=== PATIENT | female | born 1940 | race Caucasian/White ===

== ENCOUNTER 2018-07-13 11:26 | Inpatient (IN) | payer MEDICARE ==
[~2018-07-13] VITALS: Ht 152.4 cm; Wt 80.9 kg
[2018-07-13 12:21] LABS: CREATININE, SERUM 0.94 mg/dL (0.57-1.11)
--- NOTE | 2018-07-13 13:26 | Diagnostic Imaging Report ---
ADDENDUM #1 Addendum: 3-D post processing was accomplished utilizing a stand-alone monitor. Signed by: Dr. Dillan Florence DO on 07/25/2018 7:55 AM ORIGINAL REPORT EXAM: CTA ABDOMEN with IV CONTRAST DATE: 07/13/2018 Time stamp on Exam: 12:35 PM INDICATION: Severe abdominal pain COMPARISON: None TECHNIQUE: The abdomen and pelvis were scanned using a multidetector helical scanner. Coronal and sagittal reformations were obtained. CTA protocol was utilized. IV Contrast: 100 cc of Isovue-370 Oral Contrast: None Radiation Dose: Total DLP 252.62 mGy*cm Estimated effective dose: DLP x 0.015 x size factor Low-dose technique was utilized. FINDINGS: LOWER THORAX: Left lower lobe calcified granuloma. LIVER: No masses BILIARY: The gallbladder is absent. No ductal dilatation. SPLEEN: No masses PANCREAS: No masses ADRENALS: No nodules KIDNEYS: Symmetric perfusion. No enhancing masses. No hydronephrosis. There is a 2.8 cm left upper pole renal cyst. GI TRACT: No distention or evidence of obstruction. No bowel wall thickening. VESSELS: There is vascular calcification. No aneurysm or dissection is identified. The celiac trunk, SMA and LATA are all patent without evidence of stenosis. There is a minimal plaque involving the inferior aspect of the SMA origin. Accessory left renal artery. PERITONEUM/RETROPERITONEUM: No free air or fluid LYMPH NODES: No lymphadenopathy REPRODUCTIVE ORGANS: Unremarkable BLADDER: Unremarkable SOFT TISSUES: Unremarkable BONES: No suspicious bone lesions. Disc space narrowing at L5-S1. IMPRESSION: 1. No evidence to substantiate mesenteric ischemia, significant visceral vessel stenosis or bowel wall thickening. 2. No acute abnormality within the abdomen. Signed by: Dr. Dillan Florence DO on 07/13/2018 1:22 PM
--- OUTSIDE RECORDS SUMMARY | 2018-07-13 19:16 | XMS REPORT | Clinical Summary ---
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 Active escitalopram (LEXAPRO) 20 Take 20 mg by 0 MG tablet mouth daily. Active clonAZEPAM (KlonoPIN) 0.5 2 (two) times 0 MG tablet a day as 8 needed. 01/07/2018 Discontinued nitrofurantoin, Take 100 mg 0 macrocrystal-monohydrate, by mouth 2 (MACROBID) 100 MG capsule (two) times a day. 02/03/2018 Discontinued acetaminophen-codeine Take 1 tablet 0 (TYLENOL WITH CODEINE #4) by mouth 300-60 mg per tablet every 6 (six) hours as needed for moderate pain. 02/03/2018 Discontinued levothyroxine (SYNTHROID, Take 75 mcg 0 LEVOXYL) 75 mcg tablet by mouth every morning. 01/07/2018 Discontinued hydrALAZINE (APRESOLINE) Take 1 tablet 60 tablet 0 10 MG tablet (10 mg total) 8 by mouth 2 (two) times a day for 30 days. 02/04/2018 tamsulosin (FLOMAX) 0.4 Take 1 30 capsule 0 mg capsule,extended capsule (0.4 8 release 24hr mg total) by mouth daily for 30 days. 02/03/2018 docusate sodium (COLACE) Take 1 60 capsule 0 100 MG capsule capsule (100 8 mg total) by mouth 2 (two) times a day for 30 days. 02/03/2018 Discontinued oxybutynin XL Take 1 tablet 30 tablet 0 (DITROPAN-XL) 10 MG 24 hr (10 mg total) 8 tablet by mouth daily for 30 days. 01/07/2018 Discontinued levoFLOXacin (LEVAQUIN) Take 1 tablet 7 tablet 0 500 MG tablet (500 mg 8 total) by mouth daily for 7 days. 02/03/2018 Discontinued pantoprazole (PROTONIX) Take 1 tablet 30 tablet 0 40 MG EC tablet (40 mg total) 8 by mouth daily for 30 days. 02/03/2018 Discontinued NIFEdipine XL (PROCARDIA Take 1 tablet 30 tablet 2 XL) 30 MG 24 hr tablet (30 mg total) 8 by mouth daily for 90 days. 01/09/2018 miconazole nitrate 200 mg Insert 1 2 0 suppository suppository suppository 8 into the vagina nightly for 2 days. 01/23/2018 Discontinued ciprofloxacin HCl (CIPRO) Take 1 tablet 14 tablet 0 250 MG tablet (250 mg 8 total) by mouth 2 (two) times a day for 7 days. 02/26/2018 Discontinued ondansetron (ZOFRAN) 4 MG Take 4 mg by 0 tablet mouth every 8 (eight) hours as needed for nausea or vomiting. 02/26/2018 Discontinued hyoscyamine (LEVSIN) Take 0.125 mg 0 0.125 mg SL tablet by mouth every 4 (four) hours as needed for cramping. 02/07/2018 Discontinued sucralfate (CARAFATE) 100 Take 10 mL (1 1200 mL 0 mg/mL suspension g total) by 8 mouth 4 (four) times a day before meals and nightly for 30 days. 03/05/2018 simethicone (MYLICON) 80 Chew 1 tablet 120 tablet 0 MG chewable tablet (80 mg total) 8 every 6 (six) hours as needed for flatulence for up to 30 days. 02/26/2018 Discontinued NIFEdipine XL (PROCARDIA Take 1 tablet 30 tablet 0 XL) 60 MG 24 hr tablet (60 mg total) 8 by mouth daily for 30 days. 03/05/2018 famotidine (PEPCID) 20 MG Take 1 tablet 60 tablet 0 tablet (20 mg total) 8 by mouth 2 (two) times a day for 30 days. 03/06/2018 polyethylene glycol Take 17 g by 30 packet 0 (MIRALAX) 17 gram packet mouth daily 8 for 30 days. 03/06/2018 levothyroxine (SYNTHROID, Take 1 tablet 30 tablet 0 LEVOXYL) 112 mcg tablet (112 mcg 8 total) by mouth every morning for 30 days. 02/26/2018 Discontinued HYDROcodone-acetaminophen Take 1 tablet 30 tablet 0 (NORCO) 10-325 mg per by mouth 8 tablet every 6 (six) hours as needed for moderate pain for up to 7 days. Max Daily Amount: 4 tablets 02/26/2018 Discontinued tamsulosin (FLOMAX) 0.4 Take 0.4 mg 0 mg capsule,extended by mouth release 24hr daily. 02/08/2018 Discontinued amoxicillin (AMOXIL) 500 0 MG capsule 8 02/26/2018 Discontinued bethanechol (URECHOLINE) TK 1 T PO TID 0 10 MG tablet 8 02/08/2018 Discontinued ciprofloxacin (CIPRO) 500 TK 1 T PO 0 MG tablet BID FOR 7 8 DAYS. 02/08/2018 Discontinued citalopram (CeleXA) 20 MG 0 tablet 8 02/26/2018 Discontinued fluconazole (DIFLUCAN) 0 150 MG tablet 8 02/26/2018 Discontinued NIFEdipine CC (ADALAT CC) 60 mg. 2 30 MG 24 hr tablet 8 02/26/2018 Discontinued phenazopyridine TK 1 T PO 0 (PYRIDIUM) 100 MG tablet TID 8 03/28/2018 chlordiazepoxide-clidiniu Take 1 60 capsule 0 m (LIBRAX) 5-2.5 mg per capsule by 8 capsule mouth 2 (two) times a day for 30 days. 03/28/2018 hyoscyamine (LEVBID) Take 1 tablet 60 tablet 12 0.375 mg 12 hr tablet (0.375 mg 8 total) by mouth every 12 (twelve) hours as needed for cramping for up to 30 days. 03/28/2018 tamsulosin (FLOMAX) 0.4 Take 1 30 capsule 0 mg capsule capsule (0.4 8 mg total) by mouth daily for 30 days. 03/29/2018 NIFEdipine XL (PROCARDIA Take 1 tablet 30 tablet 0 XL) 30 MG 24 hr tablet (30 mg total) 8 by mouth daily for 30 days. 03/29/2018 lactulose 20 gram/30 mL Take 30 mL 900 mL 0 solution (20 g total) 8 by mouth daily for 30 days. 03/28/2018 sennosides-docusate Take 1 tablet 60 tablet 0 sodium (SENOKOT-S) 8.6-50 by mouth 2 8 mg per tablet (two) times a day for 30 days. 03/29/2018 multivitamin (THERAGRAN) Take 1 tablet 30 tablet 0 tablet by mouth 8 daily for 30 days. 03/28/2018 bethanechol (URECHOLINE) Take 1 tablet 90 tablet 0 10 MG tablet (10 mg total) 8 by mouth 3 (three) times a day for 30 days. 03/05/2018 levoFLOXacin (LEVAQUIN) Take 1 tablet 7 tablet 0 500 MG tablet (500 mg 8 total) by mouth daily for 7 days. Active Problems Problem Noted Date Urinary retention 02/09/2018 Postprocedural intraabdominal abscess 02/07/2018 Generalized abdominal pain 02/07/2018 Overview: Added automatically from request for surgery [id number] Postoperative pain 01/27/2018 Intractable epigastric abdominal pain 01/12/2018 Epigastric pain 01/12/2018 Overview: Added automatically from request for surgery [id number] Injury of bile duct 01/12/2018 Overview: Added automatically from request for surgery [id number] Abdominal pain 01/03/2018 Intractable abdominal pain 12/31/2017 Encounters Care Team Description Date Type Specialty Carmelo Segal MD Abdominal pain, unspecified abdominal location; Diarrhea of presumed infectious origin 05/31/2018 Hospital Radiology Encounter Carmelo Segal MD Abdominal pain, unspecified abdominal location (Primary Dx); Diarrhea of presumed infectious origin 05/23/2018 Transcribe Access Orders Ernestina Szymanski MD Screening breast examination 05/12/2018 Hospital Radiology Encounter Ernestina Szymanski MD Screening breast examination (Primary Dx) 04/13/2018 Transcribe Access Orders Katie Boateng MD ERCP WITH FLUORO , balloon sweep and stent removal, stone removal 02/21/2018 Surgery Gastroenterology Ranjan Mckeon MD 02/21/2018 Anesthesia Gastroenterology Event Camilla Wang MA 02/16/2018 Telephone Gastroenterology Jean Sanchez MD 02/11/2018 Anesthesia Gastroenterology Event Eldon Pillai MD EGD WITH BIOPSY 02/11/2018 Surgery Gastroenterology Kavya Massey MD Abdelsayed, Dallal William, MD Intractable abdominal pain (Primary Dx); Postprocedural intraabdominal abscess; Generalized abdominal pain; Injury of bile duct, sequela 02/07/2018 Hospital General Surgery - Encounter 02/26/2018 Katie Boateng MD Generalized abdominal pain (Primary Dx) 02/07/2018 Office Visit Gastroenterology Nacho Mcdonnell MD ESOPHAGOGASTRODUODENOSCOPY (EGD) w/ biopsies 01/30/2018 Surgery Gastroenterology Nini Montaño CRNA 01/30/2018 Anesthesia Gastroenterology Event Finn Sol DO Bavare, Arusha Amod, MD Cherian, Cecil, MD Postoperative pain (Primary Dx); Biloma following surgery, initial encounter; Essential hypertension; Hydroureteronephrosis; Intractable abdominal pain 01/26/2018 Hospital General Surgery - Encounter 02/03/2018 Noble Moise MD 01/17/2018 Anesthesia Gastroenterology Event Katie Boateng MD ERCP WITH FLUORO with sphincterotomy, and stent placement 01/17/2018 Surgery Gastroenterology Ty Ryan MD Cysto Retrograde-BILATERAL 01/16/2018 Surgery General Surgery Jarrod Mejia MD 01/16/2018 Anesthesia General Surgery Event Noble Moise MD 01/13/2018 Anesthesia General Surgery Event Ceci Rodney MD Cholecystectomy, Laparoscopic 01/13/2018 Surgery General Surgery Silvano Ryan MD Injury of bile duct, initial encounter (Primary Dx); Intractable epigastric abdominal pain; Epigastric pain; Calculus of gallbladder without cholecystitis without obstruction; Injury of bile duct, subsequent encounter; Intractable abdominal pain; Right upper quadrant abdominal pain 01/12/2018 [facility] Internal Medicine - Encounter 01/23/2018 Ceci Rodney MD Calculus of gallbladder without cholecystitis without obstruction (Primary Dx); Calculus of gallbladder with cholecystitis with biliary obstruction, unspecified cholecystitis acuity 01/12/2018 Office Visit General Surgery Earline Angelo RN 01/07/2018 Patient Quality Outreach Ty Ryan MD Cystoscopy 01/02/2018 Surgery General Surgery Eduar Nguyen MD 01/02/2018 Anesthesia General Surgery Event Kadeem Kincaid MD Abdelsayed, Dallal William, MD Intractable abdominal pain (Primary Dx); RUQ pain 12/31/2017 [facility] Internal Medicine - Encounter 01/07/2018 Silvano Ryan MD Adnexal tenderness, right (Primary Dx); Stomach ache 12/27/2017 Transcribe Access Orders after 07/12/2017 Immunizations Name Dates Previously Given Next Due Pneumococcal Conjugate 01/03/2018 [facility] Social History Date Tobacco Use Types Packs/Day Years Used Never Smoker Smokeless Tobacco: Never Used Alcohol Use Drinks/Week oz/Week Comments No Sex Assigned at Date Recorded Not on file Industry Job Start Date Occupation Not on file Not on file Not on file Travel End Travel History Travel Start No recent travel history available. Last Filed Vital Signs Time Taken Vital Sign Reading 02/26/2018 2:59 PM CDT Blood Pressure 124/60 02/26/2018 2:59 PM CDT Pulse 69 02/26/2018 2:59 PM CDT Temperature 36.7 C (98.1 F) 02/26/2018 2:59 PM CDT Respiratory Rate 18 02/26/2018 2:59 PM CDT Oxygen Saturation 96% - Inhaled Oxygen - Concentration 02/07/2018 3:37 PM CDT Weight 77.1 kg (170 lb) 02/07/2018 3:37 PM CDT Height 157.5 cm (5' 2") 02/07/2018 3:37 PM CDT Body Mass Index 31.09 Plan of Treatment Health Maintenance Due Date Last Done Comments SHINGLES VACCINES (1 of 1991 2) PNEUMOCOCCAL 2006 POLYSACCHARIDE VACCINE AGE 65 AND OVER INFLUENZA VACCINE 02/28/2018 PNEUMOCOCCAL-13 Completed 01/03/2018 Implants Device Identifier Shelf Expiration Date Model / Serial / Lot Implanted Type Area Manufactur er 11/13/2019 [id number] / / [id number] Stent Bili Advanix Duodbnd Noé 10fr Surgical N/A: N/A BSC 5cm Prldd Naviflex Ds - [id number] Stents ENDOSCOPY Implanted: 01/17/2018 (Quantity not on file) Procedures Comments Procedure Name Priority Date/Time Associated Diagnosis CT ABDOMEN PELVIS W Routine 05/31/2018 Abdominal pain, CONTRAST 6:15 PM CDT unspecified abdominal location Diarrhea of presumed infectious origin ESTIMATED GFR Routine 05/31/2018 6:03 PM CDT POC CREATININE Routine 05/31/2018 6:03 PM CDT MAMMO BREAST SCREEN Routine 05/12/2018 Screening breast TOMOSYNTHESIS BILATERAL 8:50 AM CDT examination MANUAL DIFFERENTIAL Routine 02/26/2018 6:20 AM CDT ZZESTIMATED GFR Routine 02/26/2018 6:20 AM CDT CBC WITH PLATELET AND Routine 02/26/2018 DIFFERENTIAL 6:20 AM CDT BASIC METABOLIC PANEL Routine 02/26/2018 6:20 AM CDT ZZESTIMATED GFR Routine 02/24/2018 7:14 AM CDT HC COMPLETE BLD COUNT Routine 02/24/2018 W/AUTO DIFF 7:14 AM CDT BASIC METABOLIC PANEL Routine 02/24/2018 7:14 AM CDT ZZESTIMATED GFR Routine 02/23/2018 5:48 AM CDT MAGNESIUM LEVEL Routine 02/23/2018 5:48 AM CDT BASIC METABOLIC PANEL Routine 02/23/2018 5:48 AM CDT MANUAL DIFFERENTIAL Routine 02/22/2018 6:00 AM CDT THYROID STIMULATING Routine 02/22/2018 HORMONE 6:00 AM CDT ZZESTIMATED GFR Routine 02/22/2018 6:00 AM CDT BASIC METABOLIC PANEL Routine 02/22/2018 6:00 AM CDT CBC WITH PLATELET AND Routine 02/22/2018 DIFFERENTIAL 6:00 AM CDT POC GLUCOSE Routine 02/21/2018 6:03 PM CDT ERCP WITH FLUORO 02/21/2018 Injury of bile duct, 10:35 AM CDT sequela FL ERCP Routine 02/21/2018 10:17 AM CDT IR ENDOVASCULAR CONSULT Routine 02/20/2018 2:51 PM CDT MANUAL DIFFERENTIAL Routine 02/20/2018 6:22 AM CDT ZZESTIMATED GFR Routine 02/20/2018 6:22 AM CDT BASIC METABOLIC PANEL Routine 02/20/2018 6:22 AM CDT CBC WITH PLATELET AND Routine 02/20/2018 DIFFERENTIAL 6:[address] ABDOMEN WO CONTRAST Routine 02/19/2018 9:06 PM CDT POC GLUCOSE Routine 02/19/2018 6:13 AM CDT POC GLUCOSE Routine 02/18/2018 8:30 PM CDT POC GLUCOSE Routine 02/18/2018 5:24 PM CDT POC GLUCOSE Routine 02/18/2018 12:19 PM CDT URINALYSIS, AUTOMATED Routine 02/17/2018 WITH MICROSCOPY 5:16 AM CDT GRAM STAIN Routine 02/17/2018 5:16 AM CDT URINE CULTURE Routine 02/17/2018 5:16 AM CDT XR CHEST 2 VW Routine 02/16/2018 7:[address] GUIDED ABSCESS DRAIN Routine 02/16/2018 6:10 PM CDT GRAM STAIN Routine 02/16/2018 5:35 PM CDT ANAEROBIC CULTURE Routine 02/16/2018 5:35 PM CDT AEROBIC CULTURE Routine 02/16/2018 5:35 PM CDT PROTHROMBIN TIME WITH INR Routine 02/16/2018 2:34 PM CDT PARTIAL THROMBOPLASTIN Routine 02/16/2018 TIME (PTT) 2:34 PM CDT POC GLUCOSE Routine 02/16/2018 6:24 AM CDT HC COMPLETE BLD COUNT Routine 02/15/2018 W/AUTO DIFF 6:47 AM CDT ZZESTIMATED GFR STAT 02/13/2018 2:09 PM CDT BASIC METABOLIC PANEL STAT 02/13/2018 2:09 PM CDT HC COMPLETE BLD COUNT STAT 02/13/2018 W/AUTO DIFF 2:[address] ANGIOGRAM ABDOMEN STAT 02/11/2018 PELVIS W AND OR WO 3:39 PM CDT CONTRAST SURGICAL PATHOLOGY Routine 02/11/2018 REQUEST 9:31 AM CDT COLONOSCOPY 02/11/2018 Generalized abdominal 8:30 AM CDT pain EGD WITH BIOPSY 02/11/2018 Generalized abdominal 8:30 AM CDT pain ZZESTIMATED GFR Routine 02/11/2018 6:01 AM CDT HC COMPLETE BLD COUNT Routine 02/11/2018 W/AUTO DIFF 6:01 AM CDT BASIC METABOLIC PANEL Routine 02/11/2018 6:01 AM CDT ZZESTIMATED GFR Routine 02/09/2018 4:45 AM CDT HC COMPLETE BLD COUNT Routine 02/09/2018 W/AUTO DIFF 4:45 AM CDT BASIC METABOLIC PANEL Routine 02/09/2018 4:[address] ABDOMEN PELVIS W STAT 02/07/2018 CONTRAST 9:18 PM CDT URINALYSIS SCREEN AND STAT 02/07/2018 MICROSCOPY, WITH REFLEX 7:40 PM CDT TO CULTURE URINE CULTURE STAT 02/07/2018 7:40 PM CDT TROPONIN STAT 02/07/2018 4:33 PM CDT B NATRIURETIC PEPTIDE STAT 02/07/2018 4:33 PM CDT ZZESTIMATED GFR STAT 02/07/2018 4:33 PM CDT LIPASE LEVEL STAT 02/07/2018 4:33 PM CDT COMPREHENSIVE METABOLIC STAT 02/07/2018 PANEL 4:33 PM CDT HC COMPLETE BLD COUNT STAT 02/07/2018 W/AUTO DIFF 4:33 PM CDT XR ABDOMEN 1 VW STAT 02/07/2018 4:08 PM CDT HC COMPLETE BLD COUNT Routine 02/03/2018 W/AUTO DIFF 6:05 AM CDT ZZESTIMATED GFR Routine 02/03/2018 4:00 AM CDT COMPREHENSIVE METABOLIC Routine 02/03/2018 PANEL 4:00 AM CDT ZZESTIMATED GFR Routine 02/02/2018 5:40 AM CDT COMPREHENSIVE METABOLIC Routine 02/02/2018 PANEL 5:40 AM CDT HC COMPLETE BLD COUNT Routine 02/02/2018 W/AUTO DIFF 5:40 AM CDT OCCULT BLOOD, STOOL Routine 02/01/2018 7:30 PM CDT FL ESOPHAGRAM COMPLETE Routine 02/01/2018 10:40 AM CDT ZZESTIMATED GFR Routine 02/01/2018 4:00 AM CDT COMPREHENSIVE METABOLIC Routine 02/01/2018 PANEL 4:00 AM CDT HC COMPLETE BLD COUNT Routine 02/01/2018 W/AUTO DIFF 4:00 AM CDT HEMOGLOBIN & HEMATOCRIT STAT 01/31/2018 7:48 AM CDT POTASSIUM LEVEL STAT 01/31/2018 7:01 AM CDT US RENAL Routine 01/30/2018 2:00 PM CDT SURGICAL PATHOLOGY Routine 01/30/2018 REQUEST 9:40 AM CDT YOVANNY TEST Routine 01/30/2018 7:45 AM CDT ESOPHAGOGASTRODUODENOSCOP 01/30/2018 Intractable abdominal Y (EGD) 7:30 AM CDT pain ZZESTIMATED GFR Routine 01/30/2018 4:30 AM CDT TYPE AND SCREEN Routine 01/30/2018 4:30 AM CDT IMMUNOGLOBULIN E Routine 01/30/2018 4:30 AM CDT T4, FREE Routine 01/30/2018 4:30 AM CDT THYROID STIMULATING Routine 01/30/2018 HORMONE 4:30 AM CDT PHOSPHORUS LEVEL Routine 01/30/2018 4:30 AM CDT MAGNESIUM LEVEL Routine 01/30/2018 4:30 AM CDT BASIC METABOLIC PANEL Routine 01/30/2018 4:30 AM CDT CBC WITH PLATELET AND Routine 01/30/2018 DIFFERENTIAL 4:30 AM CDT HC COMPLETE BLD COUNT Routine 01/29/2018 W/AUTO DIFF 5:30 AM CDT ZZESTIMATED GFR Routine 01/29/2018 4:00 AM CDT PHOSPHORUS LEVEL Routine 01/29/2018 4:00 AM CDT MAGNESIUM LEVEL Routine 01/29/2018 4:00 AM CDT BASIC METABOLIC PANEL Routine 01/29/2018 4:00 AM CDT ZZESTIMATED GFR Routine 01/28/2018 4:00 AM CDT COMPREHENSIVE METABOLIC Routine 01/28/2018 PANEL 4:00 AM CDT PHOSPHORUS LEVEL Routine 01/28/2018 4:00 AM CDT MAGNESIUM LEVEL Routine 01/28/2018 4:00 AM CDT CBC WITH PLATELET AND Routine 01/28/2018 DIFFERENTIAL 4:00 AM CDT NM HEPATOBILIARY STAT 01/27/2018 12:13 PM CDT LACTIC ACID LEVEL, SEPSIS Timed 01/27/2018 - NOW AND REPEAT 2X EVERY 7:03 AM CDT [address] ABDOMEN PELVIS W STAT 01/27/2018 CONTRAST 3:45 AM CDT ZZESTIMATED GFR STAT 01/27/2018 2:27 AM CDT PARTIAL THROMBOPLASTIN STAT 01/27/2018 TIME (PTT) 2:27 AM CDT PROTHROMBIN TIME WITH INR STAT 01/27/2018 2:27 AM CDT HC COMPLETE BLD COUNT STAT 01/27/2018 W/AUTO DIFF 2:27 AM CDT LIPASE LEVEL STAT 01/27/2018 2:27 AM CDT LACTIC ACID LEVEL, SEPSIS STAT 01/27/2018 - NOW AND REPEAT 2X EVERY 2:27 AM CDT 3 HOURS COMPREHENSIVE METABOLIC STAT 01/27/2018 PANEL 2:27 AM CDT URINALYSIS SCREEN AND STAT 01/27/2018 MICROSCOPY, WITH REFLEX 12:05 AM CDT TO CULTURE URINE CULTURE STAT 01/27/2018 12:[address] ABDOMEN PELVIS W Routine 01/22/2018 CONTRAST 5:12 PM CDT US GALLBLADDER STAT 01/22/2018 11:04 AM CDT ZZESTIMATED GFR STAT 01/21/2018 1:29 PM CDT LIPASE LEVEL STAT 01/21/2018 1:29 PM CDT COMPREHENSIVE METABOLIC STAT 01/21/2018 PANEL 1:29 PM CDT ZZESTIMATED GFR Routine 01/20/2018 7:54 AM CDT LIPASE LEVEL Routine 01/20/2018 7:54 AM CDT AMYLASE LEVEL Routine 01/20/2018 7:54 AM CDT HEPATIC FUNCTION PANEL Routine 01/20/2018 7:54 AM CDT BASIC METABOLIC PANEL Routine 01/20/2018 7:54 AM CDT CBC WITH PLATELET AND Routine 01/20/2018 DIFFERENTIAL 7:54 AM CDT ZZESTIMATED GFR Routine 01/19/2018 6:24 AM CDT HEPATIC FUNCTION PANEL Routine 01/19/2018 6:24 AM CDT BASIC METABOLIC PANEL Routine 01/19/2018 6:24 AM CDT HC COMPLETE BLD COUNT Routine 01/19/2018 W/AUTO DIFF 6:24 AM CDT URINALYSIS, AUTOMATED STAT 01/18/2018 WITH MICROSCOPY 7:34 AM CDT HEPATIC FUNCTION PANEL Routine 01/18/2018 7:12 AM CDT ZZESTIMATED GFR Routine 01/18/2018 7:12 AM CDT BASIC METABOLIC PANEL Routine 01/18/2018 7:12 AM CDT HC COMPLETE BLD COUNT Routine 01/18/2018 W/AUTO DIFF 7:12 AM CDT FL ERCP Routine 01/17/2018 12:21 PM CDT ERCP WITH FLUORO 01/17/2018 Injury of bile duct, 11:30 AM CDT initial encounter ZZESTIMATED GFR Routine 01/17/2018 7:18 AM CDT PROTHROMBIN TIME WITH INR Routine 01/17/2018 7:18 AM CDT PHOSPHORUS LEVEL Routine 01/17/2018 7:18 AM CDT PARTIAL THROMBOPLASTIN Routine 01/17/2018 TIME (PTT) 7:18 AM CDT MAGNESIUM LEVEL Routine 01/17/2018 7:18 AM CDT LIPASE LEVEL Routine 01/17/2018 7:18 AM CDT IONIZED CALCIUM Routine 01/17/2018 7:18 AM CDT HEPATIC FUNCTION PANEL Routine 01/17/2018 7:18 AM CDT HC COMPLETE BLD COUNT Routine 01/17/2018 W/AUTO DIFF 7:18 AM CDT BASIC METABOLIC PANEL Routine 01/17/2018 7:18 AM CDT AMYLASE LEVEL Routine 01/17/2018 7:18 AM CDT TYPE AND SCREEN STAT 01/16/2018 7:11 PM CDT NM HEPATOBILIARY STAT 01/16/2018 5:13 PM CDT XR ABDOMEN 1 VW PORTABLE STAT 01/16/2018 3:00 PM CDT FL PYELOGRAM RETROGRADE Routine 01/16/2018 12:10 PM CDT ZZESTIMATED GFR Routine 01/16/2018 7:26 AM CDT HEPATIC FUNCTION PANEL Routine 01/16/2018 7:26 AM CDT BASIC METABOLIC PANEL Routine 01/16/2018 7:26 AM CDT HC COMPLETE BLD COUNT Routine 01/16/2018 W/AUTO DIFF 7:26 AM CDT US RENAL Routine 01/15/2018 11:10 AM CDT ZZESTIMATED GFR Routine 01/15/2018 5:58 AM CDT HEPATIC FUNCTION PANEL Routine 01/15/2018 5:58 AM CDT BASIC METABOLIC PANEL Routine 01/15/2018 5:58 AM CDT HC COMPLETE BLD COUNT Routine 01/15/2018 W/AUTO DIFF 5:58 AM CDT ZZESTIMATED GFR Routine 01/14/2018 10:30 AM CDT LIPASE LEVEL Routine 01/14/2018 10:30 AM CDT HEPATIC FUNCTION PANEL Routine 01/14/2018 10:30 AM CDT BASIC METABOLIC PANEL Routine 01/14/2018 10:30 AM CDT HC COMPLETE BLD COUNT Routine 01/14/2018 W/AUTO DIFF 10:30 AM CDT FL CHOLANGIOGRAM Routine 01/13/2018 INTRAOPERATIVE 1:31 PM CDT SURGICAL PATHOLOGY Routine 01/13/2018 REQUEST 12:48 PM CDT ZZESTIMATED GFR Routine 01/13/2018 7:13 AM CDT HEPATIC FUNCTION PANEL Routine 01/13/2018 7:13 AM CDT BASIC METABOLIC PANEL Routine 01/13/2018 7:13 AM CDT PARTIAL THROMBOPLASTIN Routine 01/13/2018 TIME (PTT) 7:13 AM CDT PROTHROMBIN TIME WITH INR Routine 01/13/2018 7:13 AM CDT HC COMPLETE BLD COUNT Routine 01/13/2018 W/AUTO DIFF 7:13 AM CDT NM HEPATOBILIARY STAT 01/13/2018 3:35 AM CDT URINALYSIS SCREEN AND Routine 01/12/2018 MICROSCOPY, WITH REFLEX 10:30 PM CDT TO CULTURE URINE CULTURE Routine 01/12/2018 10:30 PM CDT GRAM STAIN Routine 01/12/2018 10:30 PM CDT ZZESTIMATED GFR STAT 01/12/2018 4:38 PM CDT TYPE AND SCREEN STAT 01/12/2018 4:38 PM CDT LIPASE LEVEL STAT 01/12/2018 4:38 PM CDT AMYLASE LEVEL STAT 01/12/2018 4:38 PM CDT HEPATIC FUNCTION PANEL STAT 01/12/2018 4:38 PM CDT MAGNESIUM LEVEL STAT 01/12/2018 4:38 PM CDT IONIZED CALCIUM STAT 01/12/2018 4:38 PM CDT BASIC METABOLIC PANEL STAT 01/12/2018 4:38 PM CDT PARTIAL THROMBOPLASTIN STAT 01/12/2018 TIME (PTT) 4:38 PM CDT PROTHROMBIN TIME WITH INR STAT 01/12/2018 4:38 PM CDT HC COMPLETE BLD COUNT STAT 01/12/2018 W/AUTO DIFF 4:38 PM CDT PHOSPHORUS LEVEL STAT 01/12/2018 4:38 PM CDT XR ABDOMEN 1 VW PORTABLE STAT 01/12/2018 4:20 PM CDT US PELVIC TRANSVAGINAL STAT 01/06/2018 2:58 PM CDT US PELVIC TRANSABDOMINAL STAT 01/06/2018 2:58 PM CDT URINALYSIS SCREEN AND Routine 01/06/2018 MICROSCOPY, WITH REFLEX 1:43 AM CDT TO CULTURE URINE CULTURE Routine 01/06/2018 1:43 AM CDT ZZESTIMATED GFR Routine 01/05/2018 7:17 AM CDT HEPATIC FUNCTION PANEL Routine 01/05/2018 7:17 AM CDT BASIC METABOLIC PANEL Routine 01/05/2018 7:17 AM CDT HC COMPLETE BLD COUNT Routine 01/05/2018 W/AUTO DIFF 7:[address] HEAD WO CONTRAST STAT 01/04/2018 11:08 PM CDT XR ABDOMEN 1 VW PORTABLE Routine 01/04/2018 12:11 PM CDT POC GLUCOSE Routine 01/04/2018 6:26 AM CDT HC COMPLETE BLD COUNT Routine 01/03/2018 W/AUTO DIFF 4:31 AM CDT ZZESTIMATED GFR Routine 01/03/2018 4:31 AM CDT BASIC METABOLIC PANEL Routine 01/03/2018 4:31 AM CDT CANCER ANTIGEN 19-9 Routine 01/02/2018 11:45 AM CDT MRI CHOLANGIOGRAM W WO STAT 12/31/2017 CONTRAST 7:55 PM CDT US GALLBLADDER STAT 12/31/2017 6:[address] ABDOMEN PELVIS W STAT 12/31/2017 CONTRAST 5:12 PM CDT URINALYSIS SCREEN AND STAT 12/31/2017 MICROSCOPY, WITH REFLEX 3:30 PM CDT TO CULTURE URINE CULTURE STAT 12/31/2017 3:30 PM CDT ZZESTIMATED GFR STAT 12/31/2017 2:27 PM CDT LIPASE LEVEL STAT 12/31/2017 2:27 PM CDT COMPREHENSIVE METABOLIC STAT 12/31/2017 PANEL 2:27 PM CDT HC COMPLETE BLD COUNT STAT 12/31/2017 W/AUTO DIFF 2:27 PM CDT ECG ED PRELIMINARY Routine 12/31/2017 INTERPRETATION 2:18 PM CDT ECG 12-LEAD STAT 12/31/2017 1:52 PM CDT after 07/12/2017 Results * CT Abdomen Pelvis W Contrast (05/31/2018 6:15 PM CDT) Only the most recent of 5 results within the time period is included. Narrative Performed At EXAMINATION:CT ABDOMEN PELVIS W CONTRAST [facility] CLINICAL HISTORY:R10.9 Unspecified abdominal pain, R19.7 Diarrheaunspecified, ABD PAIN TECHNIQUE: Multiple axial images of the abdomen and pelvis were obtained following intravenous administration of iodinated contrast. Sagittal and coronal computerized reformatted images were also obtained. Approximately 75 cc of Omnipaque 300 was used. Oral contrast was also used. All CT scan performed using radiation dose reduction techniques. Technical factors are evaluated and adjusted to ensure appropriate moderation of exposure. Automated dose management technology is applied to adjust the radiation dose to minimize expose whileachieving a diagnostic quality image. COMPARISON:02/19/2018. FINDINGS: Lung bases: The lung bases are unremarkable. Liver: There is no enhancing mass. The liver is normal in attenuation, contour and size. Gallbladder: Surgically absent.. There has been interval removal of the common bile duct stent and biliary drain. Pancreas: The pancreas is normal in caliber and attenuation. No inflammatory process. The pancreatic duct is within normal limits. Spleen: The spleen is normal in appearance.. Kidneys and ureters: The kidneys function symmetrically. An approximately 2.4 cm cortical cyst is seen within the upper pole of the left kidney. There is no enhancing renal lesion. No hydronephrosis or renal stone. The ureters are normal in course and caliber. Adrenal glands: Unremarkable. GI tract: The small bowel is normal in course and caliber. The colon is unremarkable. No bowel wall thickening is identified. There is no acute inflammatory process. The appendix is not seen. No right lower quadrant inflammation is seen. The stomach is unremarkable. Fluid: None. Pelvis: Bladder: The urinary bladder is unremarkable. Genitalia: Limited evaluation of uterus is unremarkable. Fluid: None. Bones: Unremarkable. Retroperitoneum/intraperitoneum: Moderate to marked improvement of marvin hepatis enlarged lymph nodes is seen, suggestive of improvement of reactive adenitis. No retroperitoneal or mesenteric pathologic lymphadenopathy is seen. Vasculature: Scattered atherosclerotic calcifications of the abdominal aorta and iliac arteries are noted. No evidence of aortic aneurysm or dissection.The mesenteric vessels and visceral vessel are patent. Abdominal wall: Unremarkable. IMPRESSION: No CT evidence acute findings. No CT evidence of colitis or bowel obstruction. Bosniak category 1 left renal cyst. [id number] Procedure Note Hm Interface, Radiology Results Incoming - 05/31/2018 6:29 PM CDT EXAMINATION: CT ABDOMEN PELVIS W CONTRAST CLINICAL HISTORY: R10.9 Unspecified abdominal pain, R19.7 Diarrhea unspecified, ABD PAIN TECHNIQUE: Multiple axial images of the abdomen and pelvis were obtained following intravenous administration of iodinated contrast. Sagittal and coronal computerized reformatted images were also obtained. Approximately 75 cc of Omnipaque 300 was used. Oral contrast was also used. All CT scan performed using radiation dose reduction techniques. Technical factors are evaluated and adjusted to ensure appropriate moderation of exposure. Automated dose management technology is applied to adjust the radiation dose to minimize expose while achieving a diagnostic quality image. COMPARISON: 02/19/2018. FINDINGS: Lung bases: The lung bases are unremarkable. Liver: There is no enhancing mass. The liver is normal in attenuation, contour and size. Gallbladder: Surgically absent.. There has been interval removal of the common bile duct stent and biliary drain. Pancreas: The pancreas is normal in caliber and attenuation. No inflammatory process. The pancreatic duct is within normal limits. Spleen: The spleen is normal in appearance.. Kidneys and ureters: The kidneys function symmetrically. An approximately 2.4 cm cortical cyst is seen within the upper pole of the left kidney. There is no enhancing renal lesion. No hydronephrosis or renal stone. The ureters are normal in course and caliber. Adrenal glands: Unremarkable. GI tract: The small bowel is normal in course and caliber. The colon is unremarkable. No bowel wall thickening is identified. There is no acute inflammatory process. The appendix is not seen. No right lower quadrant inflammation is seen. The stomach is unremarkable. Fluid: None. Pelvis: Bladder: The urinary bladder is unremarkable. Genitalia: Limited evaluation of uterus is unremarkable. Fluid: None. Bones: Unremarkable. Retroperitoneum/intraperitoneum: Moderate to marked improvement of marvin hepatis enlarged lymph nodes is seen, suggestive of improvement of reactive adenitis. No retroperitoneal or mesenteric pathologic lymphadenopathy is seen. Vasculature: Scattered atherosclerotic calcifications of the abdominal aorta and iliac arteries are noted. No evidence of aortic aneurysm or dissection. The mesenteric vessels and visceral vessel are patent. Abdominal wall: Unremarkable. IMPRESSION: No CT evidence acute findings. No CT evidence of colitis or bowel obstruction. Bosniak category 1 left renal cyst. [id number]-[id number] Performing Organization Address City/State/Zipcode Phone Number [facility] [address] [place] [address] * Estimated GFR (05/31/2018 6:03 PM CDT) Estimated GFR 54 (A) mL/min/1.73 m2 [facility] DEPARTMENT OF Comment: PATHOLOGY AND CatergoryUnitsInte GENOMIC MEDICINE rpretation G1 >=90 Normal or high G2 60-89Mildly decreased [id number] Mildly to moderately decreased G2z47-65 Moderately to severely decreased G4 15-29Severely decreased G5 <15Kidney failure The eGFR was calculated using the Chronic Kidney Disease Epidemiology Collaboration (CKD-EPI) equation. Interpretation is based on recommendations of the National Kidney Foundation-Kidney Disease Outcomes Quality Initiative (NKF-KDOQI) published in 2014. Specimen Blood Performing Organization Address City/State/Zipcode Phone Number [facility] DEPARTMENT OF [address] [place] [address] PATHOLOGY AND GENOMIC MEDICINE * POC creatinine (05/31/2018 6:03 PM CDT) POC creatinine 1.0 (H) 0.5 - 0.9 mg/dl [facility] DEPARTMENT OF Comment: PATHOLOGY AND Meter ID: [id number] GENOMIC MEDICINE Trapeze Performer: Nataliegillian Madrid Specimen Blood Performing Organization Address City/[facility] Phone Number [address] [place] [address] PATHOLOGY AND GENOMIC MEDICINE * Mammo Breast Screen Tomosynthesis Bilateral (05/12/2018 8:50 AM CDT) Narrative Performed At PROCEDURE:MAMMO BREAST SCREEN TOMOSYNTHESIS [id number]/13/2018 8:12 AM [employer] This patient's mammogram was interpreted with the assistance of computer-aided detection (CAD). Digital breast tomosynthesis (3D) imaging was performed. CLINICAL HISTORY:77-year-old female referred for screening mammogram.She reports no new or current breast complaints. FAMILY HISTORY:No reported family history of breast carcinoma. COMPARISON:None available. BREAST DENSITY:There are scattered areas of fibroglandular density. DIGITAL SCREENING MAMMOGRAPHY FINDINGS: There are no dominant masses, suspicious microcalcifications or unexplained architectural distortion to suggest malignancy. IMPRESSION: BI-RADS Category 1-Negative. RECOMMENDATION: Comparison with physical examination and annual mammography. This facility is accredited by The [employer] for Mammography. A negative x-ray report should not delay biopsy if a dominant or clinically suspicious mass is present. Not all cancers are identified by x-ray. [id number] The results of this exam have been sent to the patient. Performing Organization Address City/State/Zipcode Phone Number [employer] [address] [place] [address] * Estimated GFR (02/26/2018 6:20 AM CDT) Only the most recent of 29 results within the time period is included. GFR Non Af Amer 54 (A) mL/min/1.73 m2 [facility] DEPARTMENT OF PATHOLOGY AND GENOMIC MEDICINE GFR Af Amer 65 mL/min/1.73 m2 [facility] DEPARTMENT OF Comment: PATHOLOGY AND Chronic kidney disease: <60 GENOMIC MEDICINE mL/min/1.73m2 Kidney failure: <15 mL/min/1.73m2 The estimated GFR is calculated from the IDMS-traceable Modification of Diet in Renal Disease Equation. The accuracy of the calculation is poor when the creatinine is normal. Calculated values >90 mL/min/1.73m2 are not reported. This equation has not been validated in children (<18 years), women, the elderly (>70 years), or ethnic groups other than Caucasians and Americans. Specimen Plasma specimen Performing Organization Address City/[facility]/Zipcode Phone Number [address] [place] [address] PATHOLOGY AND [employer] [facility] * Manual differential (02/26/2018 6:20 AM CDT) Only the most recent of 3 results within the time period is included. Manual differential PERFORMED [facility] DEPARTMENT OF PATHOLOGY AND GENOMIC MEDICINE Neutrophils 45.0 36.0 - 66.0 % [facility] DEPARTMENT PATHOLOGY AND GENOMIC MEDICINE Lymphocytes 38.0 24.0 - 44.0 % [facility] DEPARTMENT PATHOLOGY AND GENOMIC MEDICINE Monocytes 9.0 (H) 0.0 - 6.0 % [facility] DEPARTMENT OF PATHOLOGY AND GENOMIC MEDICINE Eosinophils 2.0 0.0 - 6.0 % [facility] DEPARTMENT PATHOLOGY AND GENOMIC MEDICINE Basophils 0.0 0.0 - 1.2 % [facility] DEPARTMENT OF PATHOLOGY AND GENOMIC MEDICINE Metamyelocytes 0 0 - 1 % [facility] DEPARTMENT OF PATHOLOGY AND GENOMIC MEDICINE Promyelocytes 0 0 - 1 % [facility] DEPARTMENT PATHOLOGY AND GENOMIC MEDICINE Reactive lymphocytes 6.0 [facility] DEPARTMENT OF PATHOLOGY AND GENOMIC MEDICINE Platelet slide review Quintin adequate [facility] DEPARTMENT OF PATHOLOGY AND GENOMIC MEDICINE Anisocytosis Slight [facility] DEPARTMENT OF PATHOLOGY AND GENOMIC MEDICINE Polychromasia Slight [facility] PATHOLOGY AND GENOMIC MEDICINE Performing Organization Address City/[facility]/Zipcode Phone Number [address] [place] [id number] PATHOLOGY AND [employer] [facility] * CBC with platelet and differential (02/26/2018 6:20 AM CDT) Only the most recent of 28 results within the time period is included. WBC 3.1 (L) 4.2 - 11.0 k/uL [facility] DEPARTMENT OF PATHOLOGY AND GENOMIC MEDICINE RBC 3.40 (L) 4.04 - 5.86 m/uL [facility] DEPARTMENT OF PATHOLOGY AND GENOMIC MEDICINE HGB 9.3 (L) 11.5 - 15.3 g/dL [facility] DEPARTMENT OF PATHOLOGY AND GENOMIC MEDICINE HCT 29.8 (L) 34.0 - 45.0 % [facility] DEPARTMENT OF PATHOLOGY AND GENOMIC MEDICINE MCV 87.6 80.0 - 98.0 fL [facility] DEPARTMENT OF PATHOLOGY AND GENOMIC MEDICINE MCH 27.4 27.0 - 34.0 pg [facility] DEPARTMENT OF PATHOLOGY AND GENOMIC MEDICINE MCHC 31.2 (L) 31.5 - 36.5 g/dL [facility] DEPARTMENT OF PATHOLOGY AND GENOMIC MEDICINE RDW - SD 42.5 37.0 - 51.0 fL [facility] DEPARTMENT OF PATHOLOGY AND GENOMIC MEDICINE MPV 10.7 (H) 7.4 - 10.4 fL [facility] DEPARTMENT OF PATHOLOGY AND GENOMIC MEDICINE Platelet count 180 150 - 400 k/uL [facility] DEPARTMENT OF PATHOLOGY AND GENOMIC MEDICINE Nucleated RBC 0.00 /100 WBC [facility] DEPARTMENT OF PATHOLOGY AND GENOMIC MEDICINE Neutrophils 45.0 36.0 - 66.0 % [facility] DEPARTMENT OF PATHOLOGY AND GENOMIC MEDICINE Lymphocytes 38.0 24.0 - 44.0 % [facility] DEPARTMENT OF PATHOLOGY AND GENOMIC MEDICINE Monocytes 9.0 (H) 0.0 - 6.0 % [facility] DEPARTMENT OF PATHOLOGY AND GENOMIC MEDICINE Eosinophils 2.0 0.0 - 6.0 % [facility] DEPARTMENT OF PATHOLOGY AND GENOMIC MEDICINE Basophils 0.0 0.0 - 1.2 % [facility] DEPARTMENT OF PATHOLOGY AND GENOMIC MEDICINE Specimen Blood Performing Organization Address City/State/Zipcode Phone Number [facility] [address] [place] [address] PATHOLOGY AND GENOMIC MEDICINE * Basic metabolic panel (02/26/2018 6:20 AM CDT) Only the most recent of 21 results within the time period is included. Sodium 139 135 - 150 mEq/L [facility] DEPARTMENT OF PATHOLOGY AND GENOMIC MEDICINE Potassium 3.7 3.5 - 5.0 mEq/L [facility] DEPARTMENT OF PATHOLOGY AND GENOMIC MEDICINE Chloride 102 98 - 112 mEq/L [facility] DEPARTMENT OF PATHOLOGY AND GENOMIC MEDICINE CO2 27 24 - 31 mmol/L [facility] DEPARTMENT OF PATHOLOGY AND GENOMIC MEDICINE Anion gap 10@ANIO 7 - 15 mEq/L [facility] DEPARTMENT OF PATHOLOGY AND GENOMIC MEDICINE BUN 9 7 - 18 mg/dL [facility] DEPARTMENT OF PATHOLOGY AND GENOMIC MEDICINE Creatinine 1.00 (H) 0.50 - 0.90 mg/dL [facility] DEPARTMENT OF PATHOLOGY AND GENOMIC MEDICINE Glucose 82 65 - 100 mg/dL [facility] DEPARTMENT OF PATHOLOGY AND GENOMIC MEDICINE Calcium 9.2 8.8 - 10.2 mg/dL [facility] DEPARTMENT OF PATHOLOGY AND GENOMIC MEDICINE Specimen Plasma specimen Performing Organization Address [facility] [place] [address] PATHOLOGY AND GENOMIC MEDICINE * Magnesium level (02/23/2018 5:48 AM CDT) Only the most recent of 6 results within the time period is included. Magnesium 1.70 1.60 - 2.40 mg/dL [facility] PATHOLOGY AND GENOMIC MEDICINE Specimen Plasma specimen Performing Organization Address [facility] [place] [address] PATHOLOGY AND [facility] * Thyroid stimulating hormone (02/22/2018 6:00 AM CDT) Only the most recent of 2 results within the time period is included. TSH 1.74 0.27 - 4.20 uIU/mL [facility] PATHOLOGY AND [facility] MEDICINE Specimen Plasma specimen Performing Organization Address [facility] [place] [address] PATHOLOGY AND [facility] MEDICINE * POC glucose (02/21/2018 6:03 PM CDT) Only the most recent of 7 results within the time period is included. POC glucose 98 65 - 100 mg/dL [facility] DEPARTMENT OF Comment: PATHOLOGY AND Meter ID: [id number] GENOMIC MEDICINE Trapeze Performer: Alfred Rojas Performing Organization Address [facility] [place] [address] PATHOLOGY AND GENOMIC MEDICINE * [place] ERCP (02/21/2018 10:17 AM CDT) Only the most recent of 2 results within the time period is included. Narrative Performed At PROCEDURE:ENDOSCOPIC RETROGRADE CHOLANGIOPANCREATOGRAPHY (ERCP) [facility] CLINICAL HISTORY:Removal of biliary stent and balloon sweeps of the common bile duct. COMPARISON:None. TECHNIQUE: 8 fluoroscopic spot images of the right upper quadrant in the anterior and oblique projections were performed on the C-arm fluoroscopic device in the OR. A total kV of80, mA of2.5, and fluoroscopic time of59 seconds was offered to for the procedure. The DAP (dose absorbed product) is: 0.31 mGy-cm^2 Total number of fluoroscopic spot images: 8 fluoroscopic spot images A total of5 cc of Omnipaque 300 was injected for the procedure by Dr. Boateng. FINDINGS: Correlation was made with the ERCP report done earlier the same day. The pre-existing biliary stent was removed followed by cannulation of the common bile duct and injection into a nondistended common bile duct and intrahepatic biliary tree. This was followed by the lumens sweeps through the common bile duct. No gross filling defects are identified on the images presented. No dilatation of the intrahepatic biliary tree is seen. IMPRESSION: No filling defects are identified. Removal of a biliary stent. [id number] . Procedure Note [facility], Radiology Results Incoming - 02/21/2018 11:05 AM CDT PROCEDURE: ENDOSCOPIC RETROGRADE CHOLANGIOPANCREATOGRAPHY (ERCP) CLINICAL HISTORY: Removal of biliary stent and balloon sweeps of the common bile duct. COMPARISON: None. TECHNIQUE: 8 fluoroscopic spot images of the right upper quadrant in the anterior and oblique projections were performed on the C-arm fluoroscopic device in the OR. A total kV of 80, mA of 2.5, and fluoroscopic time of 59 seconds was offered to Dr. Boateng for the procedure. The DAP (dose absorbed product) is: 0.31 mGy-cm^2 Total number of fluoroscopic spot images: 8 fluoroscopic spot images A total of 5 cc of Omnipaque 300 was injected for the procedure by Dr. Boateng. FINDINGS: Correlation was made with the ERCP report done earlier the same day. The pre-existing biliary stent was removed followed by cannulation of the common bile duct and injection into a nondistended common bile duct and intrahepatic biliary tree. This was followed by the lumens sweeps through the common bile duct. No gross filling defects are identified on the images presented. No dilatation of the intrahepatic biliary tree is seen. IMPRESSION: No filling defects are identified. Removal of a biliary stent. [id number] . Performing Organization Address City/State/Zipcode Phone Number [facility] [address] [place] [address] * IR Endovascular Consult (02/20/2018 2:51 PM CDT) Narrative Performed At Performing Radiologist: ELHAM Hopkins MD Assistants: None Anesthesia Type: Local anesthesia using 1% lidocaine Lidocaine 1% was used for local anesthetic. Pre Procedure Diagnosis: removal of RUQ drain Post Procedure Diagnosis: removal of RUQ drain Procedure: Removal of perihepatic drainage catheter. Technique: Written and informed consent for the procedure, describing risks, benefits, and alternative therapy along with moderate sedation was obtained from the patient. The patient was then brought to the interventional suite and placed in the supine position. The right upper quadrant was prepared and draped using all elements of maximal sterile barrier technique including sterile gloves, sterile gown, catheter, mask, large sterile sheet, sterile ultrasound probe cover, hand hygiene and cutaneous antisepsis. After infiltration of the soft tissue was 3 cc of lidocaine 1% the existing catheter was cut and removed. Sterile dressing was applied. Complications: None Specimens Removed: None Estimated Blood Loss: Less than 1 mL Blood/Blood Products Administered: None Grafts/Implants: As described in the above report. IMPRESSION: Status post removal of drainage catheter located in the gallbladder fossa. [facility]-[id number] Procedure Note Interface, Radiology Results Incoming - 02/21/2018 7:29 AM CDT Performing Radiologist: Brian Hopkins MD Assistants: None Anesthesia Type: Local anesthesia using 1% lidocaine Lidocaine 1% was used for local anesthetic. Pre Procedure Diagnosis: removal of RUQ drain Post Procedure Diagnosis: removal of RUQ drain Procedure: Removal of perihepatic drainage catheter. Technique: Written and informed consent for the procedure, describing risks, benefits, and alternative therapy along with moderate sedation was obtained from the patient. The patient was then brought to the interventional suite and placed in the supine position. The right upper quadrant was prepared and draped using all elements of maximal sterile barrier technique including sterile gloves, sterile gown, catheter, mask, large sterile sheet, sterile ultrasound probe cover, hand hygiene and cutaneous antisepsis. After infiltration of the soft tissue was 3 cc of lidocaine 1% the existing catheter was cut and removed. Sterile dressing was applied. Complications: None Specimens Removed: None Estimated Blood Loss: Less than 1 mL Blood/Blood Products Administered: None Grafts/Implants: As described in the above report. IMPRESSION: Status post removal of drainage catheter located in the gallbladder fossa. [facility]-[id number] Performing Organization Address City/State/Zipcode Phone Number [facility] [address] [place] [address] * CT Abdomen Wo Contrast (02/19/2018 9:06 PM CDT) Narrative Performed At EXAMINATION[facility]:s p drainage abscess 02-16-18 COMPARISON:02/07/2018 TECHNIQUE: CT of the abdomen without intravenous contrast. Absence of contrast decreases sensitivity for detection of focal lesions and vascular pathology. Oral contrast was used. All CT scan performed using radiation dose reduction techniques. Technical factors are evaluated and adjusted to ensure appropriate moderation of exposure. Automated dose management technology is applied to adjust the radiation dose to minimize expose whileachieving a diagnostic quality image. FINDINGS: LUNG BASES:Tiny bilateral pleural effusions with associated compressive atelectasis, left when right are now noted... HEPATOBILIARY:Limited nonenhanced evaluation of the liver is unremarkable. No biliary dilatation is seen. GALLBLADDER: The gallbladder is surgically absent. A new percutaneous pigtail drain catheter is seen with the tip within the gallbladder fossa. The previously identified air-fluid collection within the gallbladder has resolved. A biliary stent remains in place.. SPLEEN: The spleen is unremarkable. . PANCREAS:No ductal dilation. Limited nonenhanced evaluation of the pancreas is unremarkable. ADRENALS: No adrenal nodules.The adrenal glands are unremarkable. KIDNEYS: Mild to moderate left hydronephrosis with distal left ureter approximately 7.2 mm obstructing calculus as prior. Approximately 2.3 cm left renal cyst is again noted. Limited nonenhanced evaluation of the kidneys is otherwise unremarkable. PERITONEUM/RETROPERITONEUM:No mesenteric or retroperitoneal pathologic lymphadenopathy seen. There is no evidence of free air or free fluid.. GI TRACT:The image portion GI tract is unremarkable.. VASCULATURE: Scattered atherosclerotic disease is seen abdomen vessels. BONES: Unremarkable. IMPRESSION: Findings suggestive of satisfactory status post percutaneous gallbladder drain catheter placement with interval resolution of gallbladder abscess. [facility]-[id number] Procedure Note Hm Interface, Radiology Results Incoming - 02/19/2018 9:53 PM CDT EXAMINATION: CT ABDOMEN WO CONTRAST CLINICAL HISTORY: s p drainage abscess 02-16-18 COMPARISON: 02/07/2018 TECHNIQUE: CT of the abdomen without intravenous contrast. Absence of contrast decreases sensitivity for detection of focal lesions and vascular pathology. Oral contrast was used. All CT scan performed using radiation dose reduction techniques. Technical factors are evaluated and adjusted to ensure appropriate moderation of exposure. Automated dose management technology is applied to adjust the radiation dose to minimize expose while achieving a diagnostic quality image. FINDINGS: LUNG BASES: Tiny bilateral pleural effusions with associated compressive atelectasis, left when right are now noted... HEPATOBILIARY: Limited nonenhanced evaluation of the liver is unremarkable. No biliary dilatation is seen. GALLBLADDER: The gallbladder is surgically absent. A new percutaneous pigtail drain catheter is seen with the tip within the gallbladder fossa. The previously identified air-fluid collection within the gallbladder has resolved. A biliary stent remains in place.. SPLEEN: The spleen is unremarkable. . PANCREAS:No ductal dilation. Limited nonenhanced evaluation of the pancreas is unremarkable. ADRENALS: No adrenal nodules.The adrenal glands are unremarkable. KIDNEYS: Mild to moderate left hydronephrosis with distal left ureter approximately 7.2 mm obstructing calculus as prior. Approximately 2.3 cm left renal cyst is again noted. Limited nonenhanced evaluation of the kidneys is otherwise unremarkable. PERITONEUM/RETROPERITONEUM: No mesenteric or retroperitoneal pathologic lymphadenopathy seen. There is no evidence of free air or free fluid.. GI TRACT: The image portion GI tract is unremarkable.. VASCULATURE: Scattered atherosclerotic disease is seen abdomen vessels. BONES: Unremarkable. IMPRESSION: Findings suggestive of satisfactory status post percutaneous gallbladder drain catheter placement with interval resolution of gallbladder abscess. [id number] Performing Organization Address City/State/Zipcode Phone Number [facility] [address] [place] [address] * Urinalysis, automated with microscopy (02/17/2018 5:16 AM CDT) Only the most recent of 2 results within the time period is included. Color, UA Yellow [facility] DEPARTMENT OF PATHOLOGY AND GENOMIC MEDICINE Appearance, UA Cloudy [facility] DEPARTMENT OF PATHOLOGY AND GENOMIC MEDICINE Specific gravity, UA 1.016 1.001 - 1.035 [facility] DEPARTMENT OF PATHOLOGY AND GENOMIC MEDICINE pH, UA 5.0 5.0 - 8.5 [facility] DEPARTMENT OF PATHOLOGY AND GENOMIC MEDICINE Protein, UA Negative Negative [facility] DEPARTMENT OF PATHOLOGY AND GENOMIC MEDICINE Glucose, UA Negative Negative [facility] DEPARTMENT OF PATHOLOGY AND GENOMIC MEDICINE Ketones, UA Negative Negative [facility] DEPARTMENT OF PATHOLOGY AND GENOMIC MEDICINE Bilirubin, UA Negative Negative [facility] DEPARTMENT OF PATHOLOGY AND GENOMIC MEDICINE Blood, UA Moderate (A) Negative [facility] DEPARTMENT OF PATHOLOGY AND GENOMIC MEDICINE Nitrite, UA Negative Negative [facility] DEPARTMENT OF PATHOLOGY AND GENOMIC MEDICINE Urobilinogen, UA Negative <2.0 [facility] DEPARTMENT OF PATHOLOGY AND GENOMIC MEDICINE Leukocyte esterase, UA Large (A) Negative [facility] DEPARTMENT OF PATHOLOGY AND GENOMIC MEDICINE Epithelial cells, UA Moderate /HPF [facility] DEPARTMENT OF PATHOLOGY AND GENOMIC MEDICINE Round epithelial cells, Many 0 - 1 /HPF [facility] DEPARTMENT OF UA PATHOLOGY AND GENOMIC MEDICINE WBC, UA >200 (H) 0 - 5 /HPF [facility] DEPARTMENT OF PATHOLOGY AND GENOMIC MEDICINE RBC, UA 22 (H) 0 - 5 /HPF [facility] DEPARTMENT OF PATHOLOGY AND GENOMIC MEDICINE Bacteria, UA Trace None seen [facility] DEPARTMENT OF PATHOLOGY AND GENOMIC MEDICINE Amorphous crystals Few [facility] DEPARTMENT OF PATHOLOGY AND GENOMIC MEDICINE WBC clumps, UA Many (A) [facility] DEPARTMENT OF PATHOLOGY AND GENOMIC MEDICINE Yeast, UA None seen [facility] DEPARTMENT OF PATHOLOGY AND GENOMIC MEDICINE Yeast with pseudohyphae, None seen [facility] DEPARTMENT OF UA PATHOLOGY AND GENOMIC MEDICINE Specimen Urine Performing Organization Address City/State/Zipcode Phone Number [facility] DEPARTMENT OF [address] [place] [address] PATHOLOGY AND GENOMIC MEDICINE * Gram stain (02/17/2018 5:16 AM CDT) Only the most recent of 3 results within the time period is included. Gram stain result Few WBC's [facility] DEPARTMENT OF Rare Gram negative rods PATHOLOGY AND Comment: GENOMIC MEDICINE Specimen Information Specimen Source: Urine Specimen Site: Clean catch Specimen Urine Performing Organization Address City/State/Zipcode Phone Number [facility] DEPARTMENT OF [address] [place] [address] PATHOLOGY AND GENOMIC MEDICINE * Urine culture (02/17/2018 5:16 AM CDT) Only the most recent of 6 results within the time period is included. Urine culture isolate Klebsiella pneumoniae [facility] DEPARTMENT OF colony count undetermined, PATHOLOGY AND probably due to inhibiting GENOMIC MEDICINE substance. The performance characteristics of this assay on this isolate were validated by the Microbiology Laboratory at [facility].This source has not been approved by the U.S. Food and Drug Administration.The results are not intended to be used as the sole means for clinical diagnosis or patient management.The Microbiology Laboratory is authorized under the clinical Laboratory Improvement Amendments of 1988 (CLIA-88) to perform high complexity testing. (A) Comment: Specimen Information Specimen Source: Urine Specimen Site: Clean catch Specimen Urine Antibiotic Method Susceptibility Organism Ampicillin ARGENIS >16 mcg/mL: Resistant Klebsiella pneumoniae Amoxicillin/Clavulanate ARGENIS <=2/1 mcg/mL: Susceptible Klebsiella pneumoniae Amikacin ARGENIS <=4 mcg/mL: Susceptible Klebsiella pneumoniae Aztreonam ARGENIS <=1 mcg/mL: Susceptible Klebsiella pneumoniae Ceftazidime ARGENIS <=0.5 mcg/mL: Susceptible Klebsiella pneumoniae Ciprofloxacin ARGENIS <=0.5 mcg/mL: Susceptible Klebsiella pneumoniae Ceftriaxone ARGENIS <=0.5 mcg/mL: Susceptible Klebsiella pneumoniae Cefuroxime Sodium ARGENIS <=4 mcg/mL: Susceptible Klebsiella pneumoniae Cefazolin ARGENIS 2 mcg/mL: Susceptible Klebsiella pneumoniae Cefepime ARGENIS <=0.5 mcg/mL: Susceptible Klebsiella pneumoniae Nitrofurantoin ARGENIS 32 mcg/mL: Susceptible Klebsiella pneumoniae Cefoxitin ARGENIS <=4 mcg/mL: Susceptible Klebsiella pneumoniae Gentamicin ARGENIS 1 mcg/mL: Susceptible Klebsiella pneumoniae Imipenem ARGENIS <=0.25 mcg/mL: Susceptible Klebsiella pneumoniae Levofloxacin ARGENIS <=1 mcg/mL: Susceptible Klebsiella pneumoniae Meropenem ARGENIS <=0.125 mcg/mL: Susceptible Klebsiella pneumoniae Tobramycin ARGENIS 1 mcg/mL: Susceptible Klebsiella pneumoniae Ampicillin/Sulbactam ARGENIS 8/4 mcg/mL: Susceptible Klebsiella pneumoniae Trimethoprim/Sulfamethoxazole ARGENIS <=0.5/9.5 mcg/mL: Susceptible Klebsiella pneumoniae Tetracycline ARGENIS <=1 mcg/mL: Susceptible Klebsiella pneumoniae Piperacillin/Tazobactam ARGENIS 4/4 mcg/mL: Susceptible Klebsiella pneumoniae Ertapenem ARGENIS <=0.125 mcg/mL: Susceptible Klebsiella pneumoniae Tigecycline ARGENIS 1 mcg/mL: Susceptible Klebsiella pneumoniae Performing Organization Address City/State/Zipcode Phone Number [facility] DEPARTMENT OF [address] [place] [address] PATHOLOGY AND GENOMIC MEDICINE * XR Chest 2 Vw (02/16/2018 7:05 PM CDT) Narrative Performed At EXAMINATION:XR CHEST 2 VW [facility] CLINICAL HISTORY:fever COMPARISON:None. IMPRESSION: Atelectasis in the left lower lobe The right lung is clear The heart is nonenlarged Bony structures are within normal limits [facility]-[id number] Procedure Note Hm Interface, Radiology Results Incoming - 02/16/2018 7:14 PM CDT EXAMINATION: XR CHEST 2 VW CLINICAL HISTORY: fever COMPARISON: None. IMPRESSION: Atelectasis in the left lower lobe The right lung is clear The heart is nonenlarged Bony structures are within normal limits [facility]-[id number] Performing Organization Address City/State/Zipcode Phone Number [facility] [address] [place] [address] * CT Guided Abscess Drain (02/16/2018 6:10 PM CDT) Narrative Performed At Clinical history: [facility] possible abscess GB fossa TECHNIQUE: DLP:Technical factors are evaluated and adjusted to ensure appropriate moderation of exposure. Automated dose management technology is supplied to adjust the radiation dose to minimize exposure while achieving a diagnostic quality image. PROCEDURE: CT-guided percutaneous catheter abscess drainage. Informed consent was obtained. The procedure and risks as well as other options were discussed. The patient was fully monitored and given moderate sedation. Doctor-patient [id number] time was 30 minutes.. The patient was prepped and draped in a sterile fashion. Measurements were obtained on the CT computer showing abscess outline and adjacent anatomic structures. Angle and depth of abscess drain placement was determined. Local anesthetic was given. A Yueh needle was placed into the abscess. Needle placement was documented with CT images. An Amplatzguidewire was inserted into the Yueh sheath after the Yueh needle was removed.. A 8.3 Chilean pigtail all-purpose drainage catheter was inserted over the guidewire. The drainage catheter position was documented with additional CT images. The pigtail catheter was locked and 28 cc abscess fluid was removed with a syringe and sent for culture and sensitivity.. The catheter was fastened with with a skin fastener and left to gravity drainage. The patient tolerated the procedure well and left the radiology department in good condition. IMPRESSION: There were no complications [facility][id number] Procedure Note Hm Interface, Radiology Results Incoming - 02/16/2018 6:29 PM CDT Clinical history: possible abscess GB fossa TECHNIQUE: DLP: Technical factors are evaluated and adjusted to ensure appropriate moderation of exposure. Automated dose management technology is supplied to adjust the radiation dose to minimize exposure while achieving a diagnostic quality image. PROCEDURE: CT-guided percutaneous catheter abscess drainage. Informed consent was obtained. The procedure and risks as well as other options were discussed. The patient was fully monitored and given moderate sedation. Doctor-patient [id number] time was 30 minutes.. The patient was prepped and draped in a sterile fashion. Measurements were obtained on the CT computer showing abscess outline and adjacent anatomic structures. Angle and depth of abscess drain placement was determined. Local anesthetic was given. A Yueh needle was placed into the abscess. Needle placement was documented with CT images. An Amplatz guidewire was inserted into the Yueh sheath after the Yueh needle was removed.. A 8.3 [place]an pigtail all-purpose drainage catheter was inserted over the guidewire. The drainage catheter position was documented with additional CT images. The pigtail catheter was locked and 28 cc abscess fluid was removed with a syringe and sent for culture and sensitivity.. The catheter was fastened with with a skin fastener and left to gravity drainage. The patient tolerated the procedure well and left the radiology department in good condition. IMPRESSION: There were no complications [id number] Performing Organization Address City/State/Zipcode Phone Number [facility] [address] [place] [address] * Aerobic culture (02/16/2018 5:35 PM CDT) Aerobic culture isolate Klebsiella pneumoniae [facility] DEPARTMENT OF Occasional PATHOLOGY AND susceptibility to follow GENOMIC MEDICINE (A) Comment: Specimen Information Specimen Source: Abscess Specimen Site: abdominal abscess Aerobic culture isolate Enterococcus faecalis [facility] DEPARTMENT OF Occasional PATHOLOGY AND Enterococcus susceptible to GENOMIC MEDICINE high levels of Gentamicin. Susceptibility results indicate synergy with Penicillins and Vancomycin. This organism is Vancomycin Sensitive. (A) Aerobic culture isolate Alpha Strep, not pneumococcus [facility] DEPARTMENT OF Occasional PATHOLOGY AND identification to follow GENOMIC MEDICINE (A) Specimen Abscess Antibiotic Method Susceptibility Organism Ampicillin ARGENIS >16 mcg/mL: Resistant Klebsiella pneumoniae Amoxicillin/Clavulanate ARGENIS <=2/1 mcg/mL: Susceptible Klebsiella pneumoniae Amikacin ARGENIS <=4 mcg/mL: Susceptible Klebsiella pneumoniae Aztreonam ARGENIS <=1 mcg/mL: Susceptible Klebsiella pneumoniae Ceftazidime ARGENIS <=0.5 mcg/mL: Susceptible Klebsiella pneumoniae Ciprofloxacin ARGENIS <=0.5 mcg/mL: Susceptible Klebsiella pneumoniae Ceftriaxone ARGENIS <=0.5 mcg/mL: Susceptible Klebsiella pneumoniae Cefuroxime Sodium ARGENIS <=4 mcg/mL: Susceptible Klebsiella pneumoniae Cefazolin ARGENIS 2 mcg/mL: Susceptible Klebsiella pneumoniae Cefepime ARGENIS <=0.5 mcg/mL: Susceptible Klebsiella pneumoniae Cefoxitin ARGENIS <=4 mcg/mL: Susceptible Klebsiella pneumoniae Gentamicin ARGENIS 1 mcg/mL: Susceptible Klebsiella pneumoniae Imipenem ARGENIS <=0.25 mcg/mL: Susceptible Klebsiella pneumoniae Levofloxacin ARGENIS <=1 mcg/mL: Susceptible Klebsiella pneumoniae Meropenem ARGENIS <=0.125 mcg/mL: Susceptible Klebsiella pneumoniae Tobramycin ARGENIS 1 mcg/mL: Susceptible Klebsiella pneumoniae Ampicillin/Sulbactam ARGENIS 8/4 mcg/mL: Susceptible Klebsiella pneumoniae Trimethoprim/Sulfamethoxazole ARGENIS <=0.5/9.5 mcg/mL: Susceptible Klebsiella pneumoniae Tetracycline ARGENIS <=1 mcg/mL: Susceptible Klebsiella pneumoniae Piperacillin/Tazobactam ARGENIS 4/4 mcg/mL: Susceptible Klebsiella pneumoniae Ertapenem ARGENIS <=0.125 mcg/mL: Susceptible Klebsiella pneumoniae Tigecycline ARGENIS 1 mcg/mL: Susceptible Klebsiella pneumoniae Ampicillin ARGENIS 2 mcg/mL: Susceptible Enterococcus faecalis Erythromycin ARGENIS 2 mcg/mL: Resistant Enterococcus faecalis Gentamicin-Syn ARGENIS <=500 mcg/mL: Susceptible Enterococcus faecalis Linezolid ARGENIS <=1 mcg/mL: Susceptible Enterococcus faecalis Minocycline ARGENIS >8 mcg/mL: Resistant Enterococcus faecalis Vancomycin ARGENIS 2 mcg/mL: Susceptible Enterococcus faecalis Performing Organization Address [facility] Phone Number [facility] DEPARTMENT OF [address] [place] [address] PATHOLOGY AND GENOMIC MEDICINE * Anaerobic culture (02/16/2018 5:35 PM CDT) Anaerobic culture isolate Zachariahllaraceli mallory [facility] DEPARTMENT OF The performance PATHOLOGY AND characteristics of this assay GENOMIC MEDICINE on this isolate were validated by the Microbiology Laboratory at [facility].This source has not been approved by the U.S. Food and Drug Administration.The results are not intended to be used as the sole means for clinical diagnosis or patient management.The Microbiology Laboratory is authorized under the clinical Laboratory Improvement Amendments of 1988 (CLIA-88) to perform high complexity testing. (A) Comment: Specimen Information Specimen Source: Abscess Specimen Site: abdominal abscess Specimen Abscess Performing Organization Address [facility] Phone Number [facility] DEPARTMENT OF [address] [place] [address] PATHOLOGY AND GENOMIC MEDICINE * Partial thromboplastin time, activated (02/16/2018 2:34 PM CDT) Only the most recent of 5 results within the time period is included. PTT 46.4 (H) 23.0 - 36.0 sec [facility] DEPARTMENT OF Comment: PATHOLOGY AND PTT therapeutic range for [facility] unfractionated heparin is 61.0-112.0 seconds which corresponds to Anti-Xa 0.3-0.7 U/ml. Note:Change in Panic Value The PTT Panic Value is changing from 110 sec. to 100 sec. due to new instrumentation and reagents. Correlation studies have been performed to validate this result. Specimen Blood Performing Organization Address City/[facility] Phone Number [address] [place] [address] PATHOLOGY AND [facility] * Prothrombin time with INR (02/16/2018 2:34 PM CDT) Only the most recent of 5 results within the time period is included. Prothrombin time 14.5 12.0 - 15.0 sec [facility] DEPARTMENT OF PATHOLOGY AND [facility] INR 1.11 0.92 - 1.12 [facility] DEPARTMENT OF Comment: PATHOLOGY AND For patients on anticoagulant GENOMIC MEDICINE therapy, reference ranges below: Indication: INR Value Treatment of Venous Thrombosis, 2.0-3.0 pulmonary emboli, or prophylaxis of a venous thrombosis, or systemic emboli. High dose, high risk patients 3.0-4.5 with mechanical valves. NOTE:INR values over 3.0 are sometimes associated with gastrointestinal hemorrhage, especially values over 4.0. Specimen Blood Performing Organization Address [facility] Phone Number [address] AND [facility] * CTA Abdomen Pelvis W And Or Wo Contrast (02/11/2018 3:39 PM CDT) Narrative Performed At EXAMINATION:CT ANGIOGRAM ABDOMEN PELVIS W AND OR WO CONTRAST [facility] CLINICAL HISTORY:RULE OUT MESENTERIC ISCHEMIA TECHNIQUE: Multiple CT angiographic images of the abdomen and pelvis were obtained during intravenous administration of contrast. Multiple computerized reformatted images as well as 3-D volume rendered images were also obtained. CT imaging was performed with iterative reconstruction technique and/or automated exposure control to reduce radiation dose. COMPARISON: CT abdomen February 07, 2018 FINDINGS: CTA:The abdominal aorta is patent with mild atherosclerotic calcification and without aneurysm, dissection, or stenosis. The celiac artery is patent without stenosis. The SMA is patent without stenosis. Single bilateral renal arteries are patent with some mild stenosis proximally from calcified plaque. The LATA is patent. LUNGS: There is some mild left lung base atelectasis. Heart is enlarged with some atherosclerosis of coronary arteries. HEPATOBILIARY:The fluid collection in along the gallbladder fossa containing a focus of air measures approximately 3.2 cm in the abdomen or with surrounding edema similar to the prior exam. This is possibly at least partially if not completely surrounded by hepatic parenchyma. Hepatic biliary dilation. A CBD stent in place. GALLBLADDER: Absent. SPLEEN:No splenomegaly. PANCREAS:No focal masses or ductal dilation. ADRENALS:No adrenal nodules. KIDNEYS:No hydronephrosis, stones or solid masses. Stable left renal cyst. PERITONEUM/RETROPERITONEUM:No free air or fluid. No lymphadenopathy. GI TRACT:Visualized portions of the bowel demonstrate no distention or wall thickening. There are no signs of appendicitis or diverticulitis. PELVIC ORGANS/BLADDER:Unremarkable. BONES AND SOFT TISSUES:No acute abnormality. IMPRESSION: Patent mesenteric arteries. No bowel wall thickening or pneumatosis. No signs of bowel obstruction. Fluid collection in the gallbladder fossa at least partially surrounded by hepatic parenchyma concerning for an abscess at least partially involving the liver. [facility]-[id number] Procedure Note Interface, Radiology Results - 02/11/2018 3:59 PM CDT EXAMINATION: CT ANGIOGRAM ABDOMEN PELVIS W AND OR WO CONTRAST CLINICAL HISTORY: RULE OUT MESENTERIC ISCHEMIA TECHNIQUE: Multiple CT angiographic images of the abdomen and pelvis were obtained during intravenous administration of contrast. Multiple computerized reformatted images as well as 3-D volume rendered images were also obtained. CT imaging was performed with iterative reconstruction technique and/or automated exposure control to reduce radiation dose. COMPARISON: CT abdomen February 07, 2018 FINDINGS: CTA: The abdominal aorta is patent with mild atherosclerotic calcification and without aneurysm, dissection, or stenosis. The celiac artery is patent without stenosis. The SMA is patent without stenosis. Single bilateral renal arteries are patent with some mild stenosis proximally from calcified plaque. The LATA is patent. LUNGS: There is some mild left lung base atelectasis. Heart is enlarged with some atherosclerosis of coronary arteries. HEPATOBILIARY: The fluid collection in along the gallbladder fossa containing a focus of air measures approximately 3.2 cm in the abdomen or with surrounding edema similar to the prior exam. This is possibly at least partially if not completely surrounded by hepatic parenchyma. Hepatic biliary dilation. A CBD stent in place. GALLBLADDER: Absent. SPLEEN: No splenomegaly. PANCREAS: No focal masses or ductal dilation. ADRENALS: No adrenal nodules. KIDNEYS: No hydronephrosis, stones or solid masses. Stable left renal cyst. PERITONEUM/RETROPERITONEUM: No free air or fluid. No lymphadenopathy. GI TRACT: Visualized portions of the bowel demonstrate no distention or wall thickening. There are no signs of appendicitis or diverticulitis. PELVIC ORGANS/BLADDER: Unremarkable. BONES AND SOFT TISSUES: No acute abnormality. IMPRESSION: Patent mesenteric arteries. No bowel wall thickening or pneumatosis. No signs of bowel obstruction. Fluid collection in the gallbladder fossa at least partially surrounded by hepatic parenchyma concerning for an abscess at least partially involving the liver. [facility]-[id number] Performing Organization Address City/State/Zipcode Phone Number [facility] [address] [place] [address] * Surgical pathology request (02/11/2018 9:31 AM CDT) Only the most recent of 3 results within the time period is included. [facility] DEPARTMENT OF PATHOLOGY AND GENOMIC MEDICINE Surgical pathology report See link below for PDF Lab [facility] DEPARTMENT OF Report PATHOLOGY AND GENOMIC MEDICINE Result status This is Final Report to [facility] DEPARTMENT OF [id number] PATHOLOGY AND GENOMIC MEDICINE Performing Organization Address City/State/Zipcode Phone Number [address] [address] PATHOLOGY AND GENOMIC MEDICINE * Urinalysis screen and microscopy, with reflex to culture (02/07/2018 7:40 PM CDT) Only the most recent of 5 results within the time period is included. Specimen site [place]iles [facility] DEPARTMENT OF PATHOLOGY AND GENOMIC MEDICINE Color, UA Yellow [facility] DEPARTMENT OF PATHOLOGY AND GENOMIC MEDICINE Appearance, UA Clear [facility] DEPARTMENT OF PATHOLOGY AND GENOMIC MEDICINE Specific gravity, UA 1.015 1.001 - 1.035 [facility] DEPARTMENT OF PATHOLOGY AND GENOMIC MEDICINE pH, UA 6.0 5.0 - 8.5 [facility] DEPARTMENT OF PATHOLOGY AND GENOMIC MEDICINE Protein, UA Negative Negative [facility] DEPARTMENT OF PATHOLOGY AND GENOMIC MEDICINE Glucose, UA Negative Negative [facility] DEPARTMENT OF PATHOLOGY AND GENOMIC MEDICINE Ketones, UA Negative Negative [facility] DEPARTMENT OF PATHOLOGY AND GENOMIC MEDICINE Bilirubin, UA Negative Negative [facility] DEPARTMENT OF PATHOLOGY AND GENOMIC MEDICINE Blood, UA Negative Negative [facility] DEPARTMENT OF PATHOLOGY AND GENOMIC MEDICINE Nitrite, UA Negative Negative [facility] DEPARTMENT OF PATHOLOGY AND GENOMIC MEDICINE Urobilinogen, UA 2.0 (A) <2.0 [facility] DEPARTMENT OF PATHOLOGY AND GENOMIC MEDICINE Leukocyte esterase, UA Negative Negative [facility] DEPARTMENT OF PATHOLOGY AND GENOMIC MEDICINE Epithelial cells, UA Few /HPF [facility] DEPARTMENT OF PATHOLOGY AND GENOMIC MEDICINE WBC, UA 1 0 - 5 /HPF [facility] DEPARTMENT OF PATHOLOGY AND GENOMIC MEDICINE RBC, UA <1 0 - 5 /HPF [facility] DEPARTMENT OF PATHOLOGY AND GENOMIC MEDICINE Bacteria, UA None seen None seen [facility] DEPARTMENT OF PATHOLOGY AND GENOMIC MEDICINE Yeast, UA None seen [facility] DEPARTMENT OF PATHOLOGY AND GENOMIC MEDICINE Yeast with pseudohyphae, None seen [facility] DEPARTMENT OF PATHOLOGY AND GENOMIC MEDICINE Specimen Urine Performing Organization Address City/[facility] [place] [address] PATHOLOGY AND GENOMIC MEDICINE * Troponin (02/07/2018 4:33 PM CDT) Troponin <0.30 0.00 - 0.30 ng/mL [facility] DEPARTMENT OF Comment: PATHOLOGY AND 0.11 - 1.49 GENOMIC MEDICINE ng/mlMay indicate increased risk of acute coronary syndrome. >=1.5 ng/ml Consistent with acute myocardial infarction. The diagnostic value of a single normal or non-diagnostic result is questionable.Serial samples at 2-6 hour intervals are required to rule out acute myocardial injury. Specimen Plasma specimen Performing Organization Address [facility] [place] [address] PATHOLOGY AND [facility] MEDICINE * B natriuretic peptide (02/07/2018 4:33 PM CDT) BNP 195 (H) 0 - 100 pg/mL [facility] DEPARTMENT PATHOLOGY AND GENOMIC MEDICINE Specimen Blood Performing Organization Address City/[facility] [place] [address] PATHOLOGY AND GENOMIC MEDICINE * Lipase level (02/07/2018 4:33 PM CDT) Only the most recent of 8 results within the time period is included. Lipase 43 13 - 60 U/L [facility] DEPARTMENT OF PATHOLOGY AND GENOMIC MEDICINE Specimen Plasma specimen Performing Organization Address City/[facility] Centercode [place] [address] PATHOLOGY AND GENOMIC MEDICINE * Comprehensive metabolic panel (02/07/2018 4:33 PM CDT) Only the most recent of 8 results within the time period is included. Sodium 139 135 - 150 mEq/L [facility] DEPARTMENT OF PATHOLOGY AND GENOMIC MEDICINE Potassium 3.1 (L) 3.5 - 5.0 mEq/L [facility] DEPARTMENT OF PATHOLOGY AND GENOMIC MEDICINE Chloride 99 98 - 112 mEq/L [facility] DEPARTMENT OF PATHOLOGY AND GENOMIC MEDICINE CO2 25 24 - 31 mmol/L [facility] DEPARTMENT OF PATHOLOGY AND GENOMIC MEDICINE Anion gap 15@ANIO 7 - 15 mEq/L [facility] DEPARTMENT OF PATHOLOGY AND GENOMIC MEDICINE BUN 8 7 - 18 mg/dL [facility] DEPARTMENT OF PATHOLOGY AND GENOMIC MEDICINE Creatinine 0.90 0.50 - 0.90 mg/dL [facility] DEPARTMENT OF PATHOLOGY AND GENOMIC MEDICINE Glucose 107 (H) 65 - 100 mg/dL [facility] DEPARTMENT OF PATHOLOGY AND GENOMIC MEDICINE Calcium 9.1 8.8 - 10.2 mg/dL [facility] OF PATHOLOGY AND GENOMIC MEDICINE Protein 7.2 6.3 - 8.3 g/dL [facility] DEPARTMENT OF PATHOLOGY AND GENOMIC MEDICINE Albumin 3.1 (L) 3.5 - 5.0 g/dL [facility] DEPARTMENT OF PATHOLOGY AND GENOMIC MEDICINE A/G ratio 0.8 0.7 - 3.8 [facility] DEPARTMENT OF PATHOLOGY AND GENOMIC MEDICINE Alkaline phosphatase 86 0 - 104 U/L [facility] DEPARTMENT OF PATHOLOGY AND GENOMIC MEDICINE AST 50 (H) 10 - 35 U/L [facility] DEPARTMENT OF PATHOLOGY AND GENOMIC MEDICINE ALT 26 5 - 50 U/L [facility] DEPARTMENT OF PATHOLOGY AND GENOMIC MEDICINE Total bilirubin 0.4 0.2 - 1.2 mg/dL [facility] DEPARTMENT OF PATHOLOGY AND GENOMIC MEDICINE Specimen Plasma specimen Performing Organization Address City/State/Zipcode Phone Number [place] [address] [place] [address] PATHOLOGY AND GENOMIC MEDICINE * XR Abdomen 1 Vw (02/07/2018 4:08 PM CDT) Narrative Performed At EXAMINATION:XR ABDOMEN 1 VW [facility] CLINICAL HISTORY:constipation COMPARISON:01/16/2018 FINDINGS: XR ABDOMEN 1 VW images are submitted. The bowel gas pattern is nonspecific. No pathologic masses or calcifications are identified. Residual contrast seen within colon. There is mild colonic fecal retention present. There are changes of prior cholecystectomy. Common bile duct stent is present. IMPRESSION: 1. Unremarkable abdominal radiograph. 2. Residual contrast seen within the colon. 3. Mild colonic fecal retention is present. [facility]-[id number] Procedure Note Interface, Radiology Results Incoming - 02/07/2018 4:21 PM CDT EXAMINATION: XR ABDOMEN 1 VW CLINICAL HISTORY: constipation COMPARISON: 01/16/2018 FINDINGS: XR ABDOMEN 1 VW images are submitted. The bowel gas pattern is nonspecific. No pathologic masses or calcifications are identified. Residual contrast seen within colon. There is mild colonic fecal retention present. There are changes of prior cholecystectomy. Common bile duct stent is present. IMPRESSION: 1. Unremarkable abdominal radiograph. 2. Residual contrast seen within the colon. 3. Mild colonic fecal retention is present. [facility]-[id number] Performing Organization Address City/State/Zipcode Phone Number [facility] [address] [place] [address] * Occult blood, stool (02/01/2018 7:30 PM CDT) Occult blood, stool Negative for occult blood. [facility] DEPARTMENT OF Comment: PATHOLOGY AND Specimen Information GENOMIC MEDICINE Specimen Source: Stool Specimen Site: Nonpreserved Specimen Stool - Nonpreserved Performing Organization Address City/[facility] Centercode Phone Number [facility] DEPARTMENT OF [address] [place] [id number] PATHOLOGY AND GENOMIC MEDICINE * FL Esophagram Complete (02/01/2018 10:40 AM CDT) Narrative Performed At EXAMINATION:[place] [facility]:DIFFICULTY SWALLOWING COMPARISON:None. Fluoroscopy time: 0.6 FINDINGS: No obstructing or constricting lesions. Intermittent tertiary waves were noted with mild esophageal dysmotility. Intraesophageal reflux was present. The EG junction is patent. No obstructing or constricting lesions. No hiatal hernia or gastroesophageal reflux. IMPRESSION: 1.No obstructing or constricting lesions. Patent EG junction. Mild esophageal dysmotility and intraesophageal reflux. No gastroesophageal reflux. [facility]-[id number] Procedure Note Interface, Radiology Results Incoming - 02/01/2018 11:01 AM CDT EXAMINATION: FL ESOPHAGRAM COMPLETE CLINICAL HISTORY: DIFFICULTY SWALLOWING COMPARISON: None. Fluoroscopy time: 0.6 FINDINGS: No obstructing or constricting lesions. Intermittent tertiary waves were noted with mild esophageal dysmotility. Intraesophageal reflux was present. The EG junction is patent. No obstructing or constricting lesions. No hiatal hernia or gastroesophageal reflux. IMPRESSION: 1. No obstructing or constricting lesions. Patent EG junction. Mild esophageal dysmotility and intraesophageal reflux. No gastroesophageal reflux. [facility]-[id number] Performing Organization Address City/[facility] Centercode Phone Number [facility] [address] [place] [phone] * Hemoglobin & hematocrit (01/31/2018 7:48 AM CDT) HGB 8.0 (L) 12.0 - 16.0 g/dL [facility] DEPARTMENT OF PATHOLOGY AND GENOMIC MEDICINE HCT 25.7 (L) 37.0 - 47.0 % [facility] DEPARTMENT OF PATHOLOGY AND GENOMIC MEDICINE Specimen Blood Performing Organization Address City/[facility] Cent[facility]ode Phone Number [facility] DEPARTMENT [address] [address] PATHOLOGY AND GENOMIC MEDICINE * Potassium level (01/31/2018 7:01 AM CDT) Potassium 3.4 (L) 3.5 - 5.0 mEq/L [facility] DEPARTMENT OF PATHOLOGY AND GENOMIC MEDICINE Specimen Plasma specimen Performing Organization Address [facility] Centercook Phone Number [facility] [place] [address] PATHOLOGY AND GENOMIC MEDICINE * US Renal (01/30/2018 2:00 PM CDT) Only the most recent of 2 results within the time period is included. Narrative Performed At EXAMINATION:[facility] H[facility]:HYDRONEPHROSIS COMPARISON:None. FINDINGS: The kidneys are generally normal in size and echogenicity. There is no evidence of solid renal mass, stone or hydronephrosis. The right kidney nbkaspdw26.4 x 4.5 x 5.1 cm.. The left kidney brjtyliu39.1 x 5.2 x 6.2 cm.There is a 2.4 cm cyst.. The urinary bladder is nondistended at time of exam.. IMPRESSION: Normal renal ultrasound examination. [facility]-[id number] Procedure Note Interface, Radiology Results Incoming - 01/30/2018 2:53 PM CDT EXAMINATION: US RENAL CLINICAL HISTORY: HYDRONEPHROSIS COMPARISON: None. FINDINGS: The kidneys are generally normal in size and echogenicity. There is no evidence of solid renal mass, stone or hydronephrosis. The right kidney measures 10.4 x 4.5 x 5.1 cm. . The left kidney measures 11.1 x 5.2 x 6.2 cm. There is a 2.4 cm cyst. . The urinary bladder is nondistended at time of exam.. IMPRESSION: Normal renal ultrasound examination. [facility]-[id number] Performing Organization Address City/[facility]/Zipcode Phone Number [facility] [address] [place] [address] * YOVANNY test (01/30/2018 7:45 AM CDT) YOVANNY test Negative after 24 hours. [facility] DEPARTMENT OF Comment: PATHOLOGY AND Specimen Information GENOMIC MEDICINE Specimen Source: Biopsy Specimen Site: gastric tissue Specimen Biopsy Performing Organization Address [facility] Centercode Phone Number [facility] [place] [address] PATHOLOGY AND GENOMIC MEDICINE * Type and screen (01/30/2018 4:30 AM CDT) Only the most recent of 3 results within the time period is included. ABO grouping O [facility] DEPARTMENT OF PATHOLOGY AND GENOMIC MEDICINE Rh type POS [facility] DEPARTMENT OF PATHOLOGY AND GENOMIC MEDICINE Antibody screen (gel) NEG [facility] DEPARTMENT OF PATHOLOGY AND GENOMIC MEDICINE Specimen Blood Performing Organization Address [facility] [place] [address] PATHOLOGY AND GENOMIC MEDICINE * T4, free (01/30/2018 4:30 AM CDT) T4, free 0.8 (L) 0.9 - 1.7 ng/dL [facility] DEPARTMENT OF PATHOLOGY AND GENOMIC MEDICINE Specimen Plasma specimen Performing Organization Address [facility] [place] [address] PATHOLOGY AND GENOMIC MEDICINE * Phosphorus level (01/30/2018 4:30 AM CDT) Only the most recent of 5 results within the time period is included. Phosphorus 3.8 2.4 - 4.5 mg/dL [facility] DEPARTMENT OF PATHOLOGY AND GENOMIC MEDICINE Specimen Plasma specimen Performing Organization Address [facility] Centercode Phone Number [facility] [place] [address] PATHOLOGY AND GENOMIC MEDICINE * Immunoglobulin E (01/30/2018 4:30 AM CDT) IgE 6.8 0.0 - 100.0 IU/mL [facility] DEPARTMENT OF PATHOLOGY AND GENOMIC MEDICINE Specimen Plasma specimen Performing Organization Address [facility]/[place] [address] PATHOLOGY AND GENOMIC MEDICINE * NM Hepatobiliary (HIDA Scan) (01/27/2018 12:13 PM CDT) Only the most recent of 3 results within the time period is included. Narrative Performed At Procedure:NM HEPATOBILIARY (HIDA SCAN) [facility] Clinical History:s p lap samantha with cystic duct stump leak and stent placement. Re-evaluate for resolution of leak Technique: The patient was injected with 4 mCi of [id number] intravenously, followed by dynamic imaging of the abdomen in the anterior projection for 1 hour. Findings: There is normal uptake of tracer by the liver with normal excretion into the biliary tree. Tracer proceeds normally into the small bowel. There is no extravasation of tracer outside the expected pathways of biliary transit. Mild duodenogastric reflux. Impression: S/P cholecystectomy with no evidence of active bile leak or common bile duct obstruction. Interval resolution of the pronounced leak seen on 01-16-2018. [id number] Procedure Note Interface, Radiology Results Incoming - 01/27/2018 12:44 PM CDT Procedure: PA HEPATOBILIARY (HIDA SCAN) Clinical History: s p lap samantha with cystic duct stump leak and stent placement. Re-evaluate for resolution of leak Technique: The patient was injected with 4 mCi of [id number] intravenously, followed by dynamic imaging of the abdomen in the anterior projection for 1 hour. Findings: There is normal uptake of tracer by the liver with normal excretion into the biliary tree. Tracer proceeds normally into the small bowel. There is no extravasation of tracer outside the expected pathways of biliary transit. Mild duodenogastric reflux. Impression: S/P cholecystectomy with no evidence of active bile leak or common bile duct obstruction. Interval resolution of the pronounced leak seen on 01-16-2018. [id number] Performing Organization Address City/State/Zipcode Phone Number [facility] [address] [place] [address] * Lactic acid level, SEPSIS - Now and repeat 2x every 3 hours (01/27/2018 7:03 AM CDT) Only the most recent of 2 results within the time period is included. Lactic acid 0.8 0.5 - 2.2 mmol/L [facility] DEPARTMENT OF PATHOLOGY AND GENOMIC MEDICINE Specimen Blood Performing Organization Address City/State/Zipcode Phone Number [facility] DEPARTMENT OF [address] [place] [phone] PATHOLOGY AND GENOMIC MEDICINE * US Gallbladder (01/22/2018 11:04 AM CDT) Only the most recent of 2 results within the time period is included. Narrative Performed At EXAMINATION:US GALLBLADDER [facility] CLINICAL HISTORY:sp cholecystectomy comfirm position of cbd stent COMPARISON:None. FINDINGS: Gallbladder: History of cholecystectomy. Focal fluid collection gallbladder fossa 3.8 cm x 1.9 cm x 2.8 cm. CBD: 9.5 mm biliary stent partially imaged within the common bile duct. No central bile duct distention Portal vein: The portal vein demonstrates normal hepatopetal flow. Main portal vein diameter 8.0 mm Liver: The visualized portions of liver are unremarkable. IMPRESSION: Status post cholecystectomy. 3.8 cm focal fluid collection in the gallbladder fossa in a patient with recent cholecystectomy. Postoperative fluid suspected. Follow up to exclude biloma. Common bile duct 9.5 mm. Biliary stent partially imaged within the common bile. No intrahepatic ductal dilatation. Abdomen radiograph may be helpful in further delineating position of the biliary stent [id number] Procedure Note Interface, Radiology Results Incoming - 01/22/2018 11:13 AM CDT EXAMINATION: US GALLBLADDER CLINICAL HISTORY:sp cholecystectomy comfirm position of cbd stent COMPARISON: None. FINDINGS: Gallbladder: History of cholecystectomy. Focal fluid collection gallbladder fossa 3.8 cm x 1.9 cm x 2.8 cm. CBD: 9.5 mm biliary stent partially imaged within the common bile duct. No central bile duct distention Portal vein: The portal vein demonstrates normal hepatopetal flow. Main portal vein diameter 8.0 mm Liver: The visualized portions of liver are unremarkable. IMPRESSION: Status post cholecystectomy. 3.8 cm focal fluid collection in the gallbladder fossa in a patient with recent cholecystectomy. Postoperative fluid suspected. Follow up to exclude biloma. Common bile duct 9.5 mm. Biliary stent partially imaged within the common bile. No intrahepatic ductal dilatation. Abdomen radiograph may be helpful in further delineating position of the biliary stent [id number] Performing Organization Address City/State/Zipcode Phone Number [facility] [address] [place] [address] * Amylase level (01/20/2018 7:54 AM CDT) Only the most recent of 3 results within the time period is included. Amylase 19 (L) 28 - 100 U/L [facility] DEPARTMENT OF PATHOLOGY AND GENOMIC MEDICINE Specimen Plasma specimen Performing Organization Address [facility] [place] [address] PATHOLOGY AND GENOMIC MEDICINE * Hepatic function panel (01/20/2018 7:54 AM CDT) Only the most recent of 10 results within the time period is included. Albumin 2.9 (L) 3.5 - 5.0 g/dL [facility] DEPARTMENT OF PATHOLOGY AND GENOMIC MEDICINE Total bilirubin 0.3 0.2 - 1.2 mg/dL [facility] DEPARTMENT OF PATHOLOGY AND GENOMIC MEDICINE Bilirubin direct <0.2 0.0 - 0.4 mg/dL [facility] DEPARTMENT OF PATHOLOGY AND GENOMIC MEDICINE Alkaline phosphatase 57 0 - 104 U/L [facility] DEPARTMENT OF PATHOLOGY AND GENOMIC MEDICINE Protein 5.7 (L) 6.3 - 8.3 g/dL [facility] DEPARTMENT OF PATHOLOGY AND GENOMIC MEDICINE ALT 17 5 - 50 U/L [facility] DEPARTMENT OF PATHOLOGY AND GENOMIC MEDICINE AST 28 10 - 35 U/L [facility] DEPARTMENT OF PATHOLOGY AND GENOMIC MEDICINE Specimen Plasma specimen Performing Organization Address [facility] [place] [address] PATHOLOGY AND GENOMIC [facility] * Ionized calcium (01/17/2018 7:18 AM CDT) Only the most recent of 2 results within the time period is included. pH 7.39 [facility] DEPARTMENT OF PATHOLOGY AND GENOMIC MEDICINE Ionized calcium 1.16 1.11 - 1.32 mmol/L [facility] DEPART[facility] PATHOLOGY AND GENOMIC MEDICINE Specimen Plasma specimen Performing Organization Address [facility] [place] [address] PATHOLOGY AND GENOMIC MEDICINE * XR Abdomen 1 Vw Portable (01/16/2018 3:00 PM CDT) Only the most recent of 3 results within the time period is included. Narrative Performed At EXAMINATION:XR ABDOMEN 1 VW PORTABLE [facility] CLINICAL HISTORY:Abd traumabluntunstable COMPARISON:None. FINDINGS: The bowel gas pattern is nonspecific. No pathologic masses or calcifications are identified. The lung bases are free of acute disease. Regional skeletal structures are within normal limits. IMPRESSION: Postcholecystectomy clips are located in the right upper quadrant. A surgical drain is present in the upper midabdomen. There is a kidney hydronephrosis and bilateral hydroureter with residual contrast in the left and right kidney collecting systems fromretrograde pyelograms performed on 01/16/2018 at 1144 hours. [id number] Procedure Note Hm Interface, Radiology Results Incoming - 01/16/2018 3:14 PM CDT EXAMINATION: XR ABDOMEN 1 VW [facility]ABLE CLINICAL HISTORY: Abd trauma blunt unstable COMPARISON: None. FINDINGS: The bowel gas pattern is nonspecific. No pathologic masses or calcifications are identified. The lung bases are free of acute disease. Regional skeletal structures are within normal limits. IMPRESSION: Postcholecystectomy clips are located in the right upper quadrant. A surgical drain is present in the upper midabdomen. There is a kidney hydronephrosis and bilateral hydroureter with residual contrast in the left and right kidney collecting systems from retrograde pyelograms performed on 01/16/2018 at 1144 hours. [id number] Performing Organization Address City/State/Zipcode Phone Number [facility] [address] [place] [address] * [place] Pyelogram Retrograde (01/16/2018 12:10 PM CDT) Narrative Performed At EXAMINATION:[place] PYELOGRAM [facility]ADE [facility]ICAL H[facility]:Retrograde pyelograms COMPARISON:None. TECHNIQUE: C-arm fluoroscopy was performed with 2 fluoroscopic spot images taken of the central abdomen and a portion of the upper pelvis upper pelvis in the anterior projection in a narrow field of view in the OR. A total KV of89, and mA of 3.9, and fluoroscopic time of9 seconds was offered to Dr.Magdy Ryan for the procedure. The DAP (dose absorbed product) is: 3249 mGy-cm^2 A total of10 mL of Omnipaque [address]Magdy Ryan FINDINGS: Initial image demonstrates no radiopaque calculus in the abdomen. Subsequent images demonstrate segmental opacification of the left upper urinary tract with progressive filling of the left upper urinary tract with multiple deformable small circular filling defects in the left renal pelvis representing air bubbles. The right upper urinary tract is segmentally opacified. The right pelvicalyceal system and proximal ureter are well opacified and demonstrate a mild UP junction narrowing with no filling defects. The remainder of the right upper urinary tract is opacified and shows no filling defects. IMPRESSION: Air bubbles in the left pelvicalyceal system. No abnormalities seen of the remainder of the upper urinary tracts as visualized. [id number] Procedure Note Interface, Radiology Results Incoming - 01/16/2018 2:14 PM CDT EXAMINATION: FL PYELOGRAM RETROGRADE CLINICAL HISTORY: Retrograde pyelograms COMPARISON: None. TECHNIQUE: C-arm fluoroscopy was performed with 2 fluoroscopic spot images taken of the central abdomen and a portion of the upper pelvis upper pelvis in the anterior projection in a narrow field of view in the OR. A total KV of 89, and mA of 3.9, and fluoroscopic time of 9 seconds was offered to Dr[address] Ty Ryan for the procedure. The DAP (dose absorbed product) is: 3249 mGy-cm^2 A total of 10 mL of Omnipaque [address] Ty Ryan FINDINGS: Initial image demonstrates no radiopaque calculus in the abdomen. Subsequent images demonstrate segmental opacification of the left upper urinary tract with progressive filling of the left upper urinary tract with multiple deformable small circular filling defects in the left renal pelvis representing air bubbles. The right upper urinary tract is segmentally opacified. The right pelvicalyceal system and proximal ureter are well opacified and demonstrate a mild UP junction narrowing with no filling defects. The remainder of the right upper urinary tract is opacified and shows no filling defects. IMPRESSION: Air bubbles in the left pelvicalyceal system. No abnormalities seen of the remainder of the upper urinary tracts as visualized. [id number] Performing Organization Address City/State/Zipcode Phone Number [facility] [address] [place] [address] * [place] Cholangiogram Intraoperative (01/13/2018 1:31 PM CDT) Narrative Performed At EXAMINATION:[place] CH[facility]ANGIOGRAM [facility]OPERATIVE [facility]:Intraoperative COMPARISON:None. TECHNIQUE: Intraoperative cholangiogram was performed. No radiologist present. Spot radiographs were made available for evaluation. FLUOROSCOPIC TIME:23.6 seconds, 3 images IMPRESSION: 1.See procedure report for more complete details. 2.2 views submitted show well opacified common duct and proximal intrahepatic ducts, and no filling defects. Contrast also noted within the duodenum. [id number] Procedure Note Interface, Radiology Results Incoming - 01/13/2018 3:08 PM CDT EXAMINATION: FL CHOLANGIOGRAM INTRAOPERATIVE CLINICAL HISTORY: Intraoperative COMPARISON: None. TECHNIQUE: Intraoperative cholangiogram was performed. No radiologist present. Spot radiographs were made available for evaluation. FLUOROSCOPIC TIME: 23.6 seconds, 3 images IMPRESSION: 1. See procedure report for more complete details. 2. 2 views submitted show well opacified common duct and proximal intrahepatic ducts, and no filling defects. Contrast also noted within the duodenum. [facility]-[id number] Performing Organization Address City/State/Zipcode Phone Number [facility] [address] [place] [address] * US Pelvic Transvaginal (01/06/2018 2:58 PM CDT) Narrative Performed At EXAMINATION:US PELVIC TRANSVAGINAL [facility] CLINICAL HISTORY:Pelvic Pain COMPARISON:None. TECHNIQUE:Transabdominal and endovaginal sonographic images of the pelvis were obtained. Grayscale, color Doppler, and spectral waveform analysis of the ovarian vessels was performed. FINDINGS: 1. Uterus measures 7.2 cm in length. 2.No endometrial fluid collections are seen. The endometrial stripe is prominent given the patient's age (8 mm) and the significance of this measurement should be correlated with any history of bleeding or hormone replacement. 3.There is a 1.6 cm fibroid to the left of midline. There is pronounced myometrial vascular calcification. 4.The ovaries are poorly visualized due to bowel gas. There may be a small (2 cm) cyst on the left but this is difficult to distinguish from adjacent bowel gas. 5.There is no significant free fluid. Impression: Small myometrial fibroid to left of midline. Mildly prominent endometrial stripe; see discussion above. [facility]-[id number] Procedure Note [facility], Radiology Results Incoming - 01/06/2018 3:25 PM CDT EXAMINATION: US PELVIC TRANSVAGINAL CLINICAL HISTORY: Pelvic Pain COMPARISON: None. TECHNIQUE:Transabdominal and endovaginal sonographic images of the pelvis were obtained. Grayscale, color Doppler, and spectral waveform analysis of the ovarian vessels was performed. FINDINGS: 1. Uterus measures 7.2 cm in length. 2. No endometrial fluid collections are seen. The endometrial stripe is prominent given the patient's age (8 mm) and the significance of this measurement should be correlated with any history of bleeding or hormone replacement. 3. There is a 1.6 cm fibroid to the left of midline. There is pronounced myometrial vascular calcification. 4. The ovaries are poorly visualized due to bowel gas. There may be a small (2 cm) cyst on the left but this is difficult to distinguish from adjacent bowel gas. 5. There is no significant free fluid. Impression: Small myometrial fibroid to left of midline. Mildly prominent endometrial stripe; see discussion above. [facility]-[id number] Performing Organization Address City/State/Zipcode Phone Number [facility] [address] [place] [address] * US Pelvic Transabdominal (01/06/2018 2:58 PM CDT) Narrative Performed At EXAMINATION:US PELVIC TRANSABDOMINAL [facility] CLINICAL HISTORY:Pelvic Pain COMPARISON:None. TECHNIQUE:Transabdominal and endovaginal sonographic images of the pelvis were obtained. Grayscale, color Doppler, and spectral waveform analysis of the ovarian vessels was performed. FINDINGS: 1. Uterus measures 7.2 cm in length. 2.No endometrial fluid collections are seen. The endometrial stripe is prominent given the patient's age (8 mm) and the significance of this measurement should be correlated with any history of bleeding or hormone replacement. 3.There is a 1.6 cm fibroid to the left of midline. There is pronounced myometrial vascular calcification. 4.The ovaries are poorly visualized due to bowel gas. There may be a small (2 cm) cyst on the left but this is difficult to distinguish from adjacent bowel gas. 5.There is no significant free fluid. Impression: Small myometrial fibroid to left of midline. Mildly prominent endometrial stripe; see discussion above. [id number] Procedure Note Interface, Radiology Results [facility] - 01/06/2018 3:21 PM CDT EXAMINATION: US PELVIC TRANSABDOMINAL CLINICAL HISTORY: Pelvic Pain COMPARISON: None. TECHNIQUE:Transabdominal and endovaginal sonographic images of the pelvis were obtained. Grayscale, color Doppler, and spectral waveform analysis of the ovarian vessels was performed. FINDINGS: 1. Uterus measures 7.2 cm in length. 2. No endometrial fluid collections are seen. The endometrial stripe is prominent given the patient's age (8 mm) and the significance of this measurement should be correlated with any history of bleeding or hormone replacement. 3. There is a 1.6 cm fibroid to the left of midline. There is pronounced myometrial vascular calcification. 4. The ovaries are poorly visualized due to bowel gas. There may be a small (2 cm) cyst on the left but this is difficult to distinguish from adjacent bowel gas. 5. There is no significant free fluid. Impression: Small myometrial fibroid to left of midline. Mildly prominent endometrial stripe; see discussion above. [facility]-[id number] Performing Organization Address [facility]/Zipcode Phone Number [facility] [address] [place] [address] * CT Head Wo Contrast (01/04/2018 11:08 PM CDT) Narrative Performed At EXAMINATION: CT HEAD WO CONTRAST [facility] COMPARISON: None CLINICAL HISTORY HEAD INJURY MILD OR MODERATE ACUTENO NEUROLOGICAL DEFICIT. TECHNIQUE: Non-contrast CT scan of the head with thin-section contiguous transaxial images from the skull base to the vertex. CT scans are performed using radiation dose reduction techniques. Technical factors are evaluated and adjusted to ensure appropriate moderation of exposure. Automated dose management technology is applied to adjust radiation exposure while achieving a highly diagnostic quality image. FINDINGS: Nonenhanced emergency cranial CT was performed at approximately 2257 hours. The ventricles and subarachnoid spaces are dilated. There is no definite acute edema or hemorrhage or mass effect or midline shift. Bone settings demonstrate the calvarium to be intact. IMPRESSION: Unremarkable examination. [facility]-[id number] Procedure Note Interface, Radiology Results Incoming - 01/04/2018 11:12 PM CDT EXAMINATION: CT HEAD WO CONTRAST COMPARISON: None CLINICAL HISTORY HEAD INJURY MILD OR MODERATE ACUTE NO NEUROLOGICAL DEFICIT. TECHNIQUE: Non-contrast CT scan of the head with thin-section contiguous transaxial images from the skull base to the vertex. CT scans are performed using radiation dose reduction techniques. Technical factors are evaluated and adjusted to ensure appropriate moderation of exposure. Automated dose management technology is applied to adjust radiation exposure while achieving a highly diagnostic quality image. FINDINGS: Nonenhanced emergency cranial CT was performed at approximately 2257 hours. The ventricles and subarachnoid spaces are dilated. There is no definite acute edema or hemorrhage or mass effect or midline shift. Bone settings demonstrate the calvarium to be intact. IMPRESSION: Unremarkable examination. [facility]-[id number] Performing Organization Address City/[facility]/Zipcode Phone Number [facility] [address] [place] [address] * Cancer antigen 19-9 (01/02/2018 11:45 AM CDT) CA 19-9 20 0 - 35 U/mL [facility] DEPARTMENT OF Comment: PATHOLOGY AND The [employer] 8000 CA19-9 GENOMIC MEDICINE immunoassay was used. Results obtained with different assay methods or kits should not be used interchangeably and may be different. Specimen Plasma specimen Performing Organization Address City/State/Zipcode Phone Number [facility] DEPARTMENT OF [address] [place] [address] PATHOLOGY AND GENOMIC MEDICINE * MRI CHOLANGIOGRAM W WO CONTRAST (12/31/2017 7:55 PM CDT) Narrative Performed At [facility] EXAMINATION:MRI CHOLANGIOGRAM W WO CONTRAST CLINICAL HISTORY:intractable abd pain TECHNIQUE: Multiplanar multisequence MR images of the abdomen were obtained pre- and post dynamic intravenous administration of Gadolinium. MRCP images were obtained with 3-D reconstructions on the acquisition scanner under concurrent supervision. COMPARISON:None. FINDINGS: Liver: Normal signal without focal mass. Spleen: No focal abnormality. Pancreas: No focal abnormality. The main pancreatic duct is normal in caliber. Gallbladder and biliary tree: There is cholelithiasis without evidence of acute cholecystitis. There is moderate dilation of the intrahepatic bile ducts and common bile duct, with the common bile duct measuring up to 11 mm in diameter. The common bile duct does abruptly terminate at the level of the ampulla and there is no evidence of choledocholithiasis. Adrenal glands: No focal abnormality. Kidneys: No suspicious renal mass or hydronephrosis. There are bilateral renal cysts, the largest of which is located in the left kidney and measures 23 mm in size. Aorta: There is no evidence of aneurysm. Retroperitoneum: There is no evidence of retroperitoneal mass or adenopathy. Bone marrow: No focal abnormality. Lung bases: The visualized portions of the lungs are free of acute disease. Ascites: None. IMPRESSION: 1.Moderate common bile duct and intrahepatic biliary ductal dilation without evidence of choledocholithiasis. There is an abrupt cut off of the common bile duct at the level of the ampulla, raising the possibility of a stricture. Further evaluation can be obtained with an ERCP. 2.Cholelithiasis without evidence of acute cholecystitis. [facility]-[id number] Procedure Note Interface, Radiology Results - 12/31/2017 8:28 PM CDT EXAMINATION: MRI CHOLANGIOGRAM W WO CONTRAST CLINICAL HISTORY: intractable abd pain TECHNIQUE: Multiplanar multisequence MR images of the abdomen were obtained pre- and post dynamic intravenous administration of Gadolinium. MRCP images were obtained with 3-D reconstructions on the acquisition scanner under concurrent supervision. COMPARISON: None. FINDINGS: Liver: Normal signal without focal mass. Spleen: No focal abnormality. Pancreas: No focal abnormality. The main pancreatic duct is normal in caliber. Gallbladder and biliary tree: There is cholelithiasis without evidence of acute cholecystitis. There is moderate dilation of the intrahepatic bile ducts and common bile duct, with the common bile duct measuring up to 11 mm in diameter. The common bile duct does abruptly terminate at the level of the ampulla and there is no evidence of choledocholithiasis. Adrenal glands: No focal abnormality. Kidneys: No suspicious renal mass or hydronephrosis. There are bilateral renal cysts, the largest of which is located in the left kidney and measures 23 mm in size. Aorta: There is no evidence of aneurysm. Retroperitoneum: There is no evidence of retroperitoneal mass or adenopathy. Bone marrow: No focal abnormality. Lung bases: The visualized portions of the lungs are free of acute disease. Ascites: None. IMPRESSION: 1. Moderate common bile duct and intrahepatic biliary ductal dilation without evidence of choledocholithiasis. There is an abrupt cut off of the common bile duct at the level of the ampulla, raising the possibility of a stricture. Further evaluation can be obtained with an ERCP. 2. Cholelithiasis without evidence of acute cholecystitis. [facility]-[id number] Performing Organization Address City/State/Zipcode Phone Number [facility] [address] [place] [address] * ECG ED Preliminary Interpretation - NOT AN ORDER (12/31/2017 2:18 PM CDT) Narrative Performed At Kadeem Kincaid MD 12/31/20176:20 PM ECG ED Preliminary Interpretation - Not an Order Performed by: KADEEM KINCAID Authorized by: KADEEM KINCAID ECG reviewed by ED Physician in the absence of a government documents librarian: yes Previous ECG: Previous ECG:Unavailable Interpretation: Interpretation: abnormal Rate: ECG rate:80 ECG rate assessment: normal Rhythm: Rhythm: sinus rhythm Ectopy: Ectopy: none QRS: QRS axis:Left Conduction: Conduction: normal ST segments: ST segments:Normal T waves: T waves: flattening Flattening:AVL * ECG 12 lead (12/31/2017 1:52 PM CDT) Ventricular rate 80 [facility] Atrial rate 80 [facility] WY interval 216 [facility] QRSD interval 92 [facility] QT interval 404 [facility] QTC interval 465 [facility] P axis 1 68 [facility] QRS axis 1 -66 [facility] T wave axis 68 [facility] EKG impression Sinus rhythm with 1st degree [facility] AV block-Left anterior fascicular block-Septal infarct , age undetermined-Abnormal ECG-No previous ECGs available- Performing Organization Address City/State/Zipcode Phone Number [facility] [address] [place] [address] after 07/12/2017 Insurance Payer Benefit Subscriber ID Type Phone Address Plan / Group [facility] MEDICARE AARP xxxxxxxxx O MEDICARE COMPLETE MCR Advance Directives Patient has advance care planning documents on file. For more information, renita e contact: Jose Siddiqi [address] [place] [address]
--- OUTSIDE RECORDS SUMMARY | 2018-07-13 19:16 | XMS REPORT ---
Author Author [facility] Address Unknown Phone Unavailable Care Team Providers Care Bank Boss Name Role Phone DONNY WILLIAMSON Unavailable Unavailable Problems This patient has no known problems. Allergies, Adverse Reactions, Alerts This patient has no known allergies or adverse reactions. Medications This patient has no known medications. Results Test Description Test Time Test Comments Text Results Atomic Results Result Comments CTA ABDOMEN 2018-07-13 12:58:00 [place] [address] Patient Name: LAMONT DOCKERY MR #: [id number] : 1940 Age/Sex: 78/F Req #: [id number] [facility] Physician: Ordered by: DONNY WILLIAMSON MD Report #: [id number] Location: CT Room/Bed: Procedure: [id number] CT/CTA ABDOMEN Exam Date: 07/13/18 Exam Time: 1230 REPORT STATUS: Signed EXAM: CTA ABDOMEN with IV CONTRAST DATE: 07/13/2018 Time stamp on Exam: 12:35 PM INDICATION: Severe abdominal pain COMPARISON: None TECHNIQUE: The abdomen and pelvis were scanned using a multidetector helical scanner. Coronal and sagittal reformations were obtained. CTA protocol was utilized. IV Contrast: 100 cc of Isovue-370 Oral Contrast: None Radiation Dose: Total DLP 252.62 mGy*cm Estimated effective dose: DLP x 0.015 x size factor Low-dose technique was utilized. FINDINGS: LOWER THORAX: Left lower lobe calcified granuloma. LIVER: No masses BILIARY: The gallbladder is absent. No ductal dilatation. SPLEEN: No masses PANCREAS: No masses ADRENALS: No nodules KIDNEYS: Symmetric perfusion. No enhancing masses. No hydronephrosis. There is a 2.8 cm left upper pole renal cyst. GI TRACT: No distention or evidence of obstruction. No bowel wall thickening. VESSELS: There is vascular calcification. No aneurysm or dissection is identified. The celiac trunk, SMA and LATA are all patent without evidence of stenosis. There is a minimal plaque involving the inferior aspect of the SMA origin. Accessory left renal artery. PERITONEUM/RETROPERITONEUM: No free air or fluid LYMPH NODES: No lymphadenopathy REPRODUCTIVE ORGANS: Unremarkable BLADDER: Unremarkable SOFT TISSUES: Unremarkable BONES: No suspicious bone lesions. Disc space narrowing at L5-S1. IMPRESSION: 1. No evidence to substantiate mesenteric ischemia, significant visceral vessel stenosis or bowel wall thickening. 2. No acute abnormality within the abdomen. Signed by: Dr. Tanvir Florence DO on 07/13/2018 1:22 PM Dictated By: TANVIR FLORENCE DO 1322 Transcribed By: EMANUEL on 07/13/18 1322 COPY TO: DONNY WILLIAMSON MD
[2018-07-13 20:00] VITALS: BP 164/77
[2018-07-13] MEDS ORDERED: PANTOPRAZOLE 40 MG 10ML VIAL IV PRN (20:15)
[2018-07-13] MEDS ORDERED: DICYCLOMINE HCL 20 MG/2 ML VIAL IM PRN (20:15)
[2018-07-13] MEDS ORDERED: HYDROMORPHONE 1MG/1ML INJ IV PRN (20:30)
--- NOTE | 2018-07-13 20:30 | NUR ---
DR Chas SUMMERS IN UNIT SAW PT.NEW ORDERS RECEIVED.
--- NOTE | 2018-07-13 20:32 | Consultation ---
DATE OF CONSULTATION: REASON FOR CONSULTATION: Abdominal pain. HISTORY OF PRESENT ILLNESS: The patient is a 78-year-old female who for the last 6 months has been complaining of abdominal pain, ill-defined, now felt mainly in the lower abdomen, associated with nausea with a feeling of tenesmus and some difficulties urinating. The patient was admitted to the hospital today and had a CTA of the abdomen because of concerns of intestinal ischemia and none was found. The examination was normal.. Specifically, there was no evidence of bowel edema, obstruction, or any other abnormalities. The patient has been evaluated by multiple doctors during the last 6 months and she was diagnosed with irritable bowel. She has been taking multiple medicines,including antianxiety and antidepressants as well as tramadol at night. PAST MEDICAL HISTORY: Includes hypertension, anxiety, and depression. PAST SURGICAL HISTORY: Includes cholecystectomy with a common duct stent and tubal ligation. REVIEW OF SYSTEMS; As per history of present illness. ALLERGIES : None. MEDICINES: See list. PHYSICAL EXAMINATION GENERAL: Reveals a 78-year-old female who is anxious. VITAL SIGNS: She is afebrile. Pulse is 60, blood pressure is stable, respiratory rate is 16 to 18 breaths per minute. HEENT: Unremarkable. ABDOMEN: Reveals somewhat hyperactive bowel sounds with ill-defined tenderness. There are no abdominal hernias. EXTREMITIES: Reveal no clubbing, cyanosis, or edema. LABORATORY DATA: Laboratories are pending. ASSESSMENT: Abdominal pain of unclear etiology. According to the daughter, she has had multiple endoscopies also, all of which were negative. The source of this abdominal pain is unclear; however, at this point, I see absolutely no evidence of acute abdomen. RECOMMENDATIONS: The patient needs GI consult for further evaluation and treatment At this time, there is no need for any further surgical intervention. We will see her again if needed. Thank you very much.. Job#: [id number] ERICA TEE
[2018-07-13] MEDS: ONDANSETRON HCL INJ 2 MG/ML VIAL IV PRN (20:45)
[2018-07-13] MEDS: HYDROMORPHONE 2MG/ML 2 MG/ML ML IV PRN (20:47)
[2018-07-13] MEDS ORDERED: TRAMADOL HCL 50 MG TAB PO PRN (21:00)
[2018-07-13] MEDS ORDERED: PANTOPRAZOLE 40 MG 10ML VIAL IV STA (22:08)
[2018-07-13] MEDS ORDERED: PANTOPRAZOL 40MG/SOD CHL 0.9% 250 ML IV SCH (22:15)
[2018-07-13] MEDS ORDERED: IOPAMIDOL 370 MG/ML 200 ML INFUS..BTL INJ ONE (22:19)
[2018-07-13] MEDS ORDERED: SODIUM CHLORIDE 0.9% 100 ML 100 ML ONE (22:19)
[2018-07-13] MEDS ORDERED: TAMSULOSIN HCL 0.4 MG CAP PO SCH (23:04)
[2018-07-13] MEDS: SODIUM CHLORIDE 0.9% 1000ML 1,000 ML IV SCH (23:15)
[2018-07-13] MEDS ORDERED: ZOLPIDEM TARTRA10 MG PO (23:20)
[2018-07-13] MEDS ORDERED: NIFEDIPINE ER30 M1 PO (23:20)
[2018-07-13] MEDS ORDERED: FLOMAX0.4 MG PO (23:20)
[2018-07-13] MEDS ORDERED: CITALOPRAM HBR20 MG PO (23:20)
[2018-07-13] MEDS ORDERED: NORCO 10-325 T1 EACH PO (23:20)
[2018-07-13] MEDS ORDERED: AMITRIPTYLINE H10 MG PO (23:20)
[2018-07-13] MEDS ORDERED: ALPRAZOLAM1 MG PO (23:21)
[2018-07-13 23:28] VITALS: BP 164/77
[2018-07-13] MEDS: ZOLPIDEM TARTRATE 10 MG TAB PO PRN (23:39)
[2018-07-14] VITALS (8 sets, daily range): BP systolic 106–152; BP diastolic 53–64
[2018-07-14] MEDS ORDERED: PANTOPRAZOL 40MG/SOD CHL 0.9% 250 ML IV SCH (00:15)
--- NOTE | 2018-07-14 00:15 | NUR ---
NOTIFIED DR BOOTHE ABOUT NEW CONSULT.
[2018-07-14 00:56] LABS: INR 0.98; PROTHROMBIN TIME 13.9 seconds (11.9-14.5)
[2018-07-14 00:57] LABS: PARTIAL THROMBOPLASTIN TIME 30.7 seconds (23.8-35.5)
[2018-07-14] MEDS: ONDANSETRON HCL INJ 2 MG/ML VIAL IV PRN ×2 (00:57→04:57)
[2018-07-14] MEDS: HYDROMORPHONE 2MG/ML 2 MG/ML ML IV PRN ×3 (00:59→14:06)
[2018-07-14 01:08] LABS: ALANINE AMINOTRANSFERASE 26 IU/L (0-55); ALBUMIN 3.8 g/dL (3.5-5.0); ALBUMIN/GLOBULIN RATIO 1.2 (0.8-2.0); ALKALINE PHOSPHATASE 82 IU/L (40-150); ANION GAP 14.8 mmol/L (8-16); BLOOD UREA NITROGEN 18 mg/dL (7-26); BUN/CREATININE RATIO 20 (6-25); CALCIUM 9.5 mg/dL (8.4-10.2); CARBON DIOXIDE 22 mmol/L (22-29); CHLORIDE 103 mmol/L (98-107); CREATININE, SERUM 0.88 mg/dL (0.57-1.11); EST GLOMERULAR FILTRATION RATE > 60 ML/MIN (60-); GLUCOSE 83 mg/dL (74-118); POTASSIUM 3.8 mmol/L (3.5-5.1); SODIUM 136 mmol/L (136-145)
[2018-07-14 01:09] LABS: BASOPHILS % 0.3 % (0.0-1.0); EOSINOPHILS # (AUTO) 0.1 (0.0-0.4); EOSINOPHILS % 2.4 % (0.0-6.0); HEMATOCRIT 34.3 % (34.2-44.1); HEMOGLOBIN 11.7 g/dL (12.0-16.0); LYMPHOCYTES # (AUTO) 1.4 (1.0-3.2); LYMPHOCYTES % 24.4 % (18.0-39.1); MEAN CORPUSCULAR HEMOGLOBIN 28.3 pg (28-32); MEAN CORPUSCULAR HGB CONC 34.1 g/dL (31-35); MEAN CORPUSCULAR VOLUME 83.1 fL (81-99); MONOCYTES # (AUTO) 0.5 (0.2-0.8); MONOCYTES % 8.5 % (4.4-11.3); NEUTROPHILS # (AUTO) 3.8 (2.1-6.9); NEUTROPHILS % 64.2 % (38.7-80.0); PLATELET COUNT 174 x10e3/uL (140-360); RED BLOOD COUNT 4.13 x10e6/uL (3.6-5.1); RED CELL DISTRIBUTION WIDTH 13.9 % (11.7-14.4)
[2018-07-14] MEDS: PANTOPRAZOL 40MG/SOD CHL 0.9% 50 ML IV SCH ×3 (01:20→20:46)
--- NOTE | 2018-07-14 02:00 | NUR ---
DR BOOTHE IN UNIT ROUNDING ON PT AT THIS TIME.
[2018-07-14] MEDS ORDERED: METRONIDAZOLE 750MG/NS 150ML 150 ML IV STA (02:14)
[2018-07-14] MEDS ORDERED: RIFAXIMIN 200 MG TAB PO STA (02:24)
[2018-07-14] MEDS ORDERED: METOCLOPRAMIDE HCL 10 MG/2ML VIAL IV ONE (02:45)
--- NOTE | 2018-07-14 03:24 | NUR ---
VERIFIED DOSAGE ON THE FLAGYL WITH DR Rey BOOTHE,N/O RECEIVED TO CHANGE TO FLAGYL 500 MG IV NOW AND THEN EVERY 6 HOURS.
[2018-07-14] MEDS ORDERED: METRONIDAZOLE 500MG/NS 100ML 100 ML IV STA (03:27)
[2018-07-14] MEDS: LEVOTHYROXINE SODIUM 112 MCG TAB PO SCH (06:07)
[2018-07-14] MEDS ORDERED: METRONIDAZOLE 500MG/NS 100ML 100 ML IV SCH ×5 (07:00→21:00)
--- NOTE | 2018-07-14 07:13 | NUR ---
REPORT GIVEN TO ONCOMING NURSE,WALKING ROUNDS MADE.PT RESTING IN BED WITH NO S/S OF DISTRESS.
[2018-07-14] MEDS ORDERED: METOCLOPRAMIDE HCL 10 MG/2ML VIAL IV SCH (07:30)
[2018-07-14] MEDS: CITALOPRAM HYDROBROMIDE 20 MG TAB PO SCH (08:38)
[2018-07-14] MEDS: DICYCLOMINE HCL 20 MG TAB PO SCH ×4 (08:38→20:59)
[2018-07-14] MEDS: RIFAXIMIN 550 MG TABLET PO SCH ×2 (08:39→17:00)
[2018-07-14] MEDS: NIFEDIPINE CR 30 MG TAB PO SCH (08:39)
[2018-07-14] MEDS ORDERED: TAMSULOSIN HCL 0.4 MG CAP PO SCH ×3 (09:00→21:00)
[2018-07-14] MEDS ORDERED: PANTOPRAZOLE 40 MG 10ML VIAL IV SCH (09:00)
[2018-07-14] MEDS: SODIUM CHLORIDE 0.9% 1000ML 1,000 ML IV SCH ×2 (10:20→14:06)
--- NOTE | 2018-07-14 12:44 | NUR ---
Nutrition Screen Note RD Recommendation for Physician: Advanced diet to solids as tolerated when medically feasible Plan of Care: RD following, monitoring for adequacy and tolerance Nutrition reason for involvement: Nutrition Risk Trigger MST score Primary Diagnose(s): Abdominal pain Ht:60 in Wt:174lbs BMI:34 kg/m2 IBW:100lbs RD Assessment:(07/14/2018) Initial encounter with patient. Diet Hx: Pt denies any known food allergies. Pt denies any wt changes, +constipation, no difficulty chewing or swallowing and is reporting a good appetite and is ready to eat solid foods. Current Diet: full liquid diet Malnutrition Evaluation (07/14/2018) The patient does not meet criteria for a specified degree of malnutrition at this time. Will re-evaluate at follow-up as appropriate. Diet Education Needs Assessment: Diet education not indicated. Diet Adequacy: Meeting calorie needs, Meeting protein needs, Meeting fluid needs Tolerance: Tolerating PO Nutrition Care Level:juju Kwan RD, LD, CNSC
[2018-07-14] MEDS: DOCUSATE SODIUM 100 MG CAP PO SCH ×3 (14:21→17:55)
[2018-07-14] MEDS: PHENAZOPYRIDINE HCL 100 MG TAB PO SCH (17:55)
[2018-07-14] MEDS: PROMETHAZINE 12.5MG/ NACL 0.9% 12.5 MG/50 ML BAG IV PRN (17:55)
[2018-07-14] MEDS ORDERED: AMITRIPTYLINE HCL 10 MG TAB PO SCH (18:00)
[2018-07-14] MEDS: ALPRAZOLAM 1 MG TAB PO PRN (19:06)
[2018-07-14] MEDS: ZOLPIDEM TARTRATE 10 MG TAB PO PRN (22:03)
--- NOTE | 2018-07-14 22:59 | NUR ---
DR Rey BOOTHE IN UNIT SAW PT,N/O RECEIVED AND ENTERED.
[2018-07-15] VITALS (8 sets, daily range): BP systolic 103–137; BP diastolic 52–67
[2018-07-15] MEDS: PANTOPRAZOL 40MG/SOD CHL 0.9% 50 ML IV SCH ×3 (01:46→21:09)
[2018-07-15] MEDS: METRONIDAZOLE 500MG/NS 100ML 100 ML IV SCH ×4 (03:30→21:16)
[2018-07-15] MEDS: LEVOTHYROXINE SODIUM 112 MCG TAB PO SCH (06:21)
[2018-07-15] MEDS: RIFAXIMIN 550 MG TABLET PO SCH ×2 (09:00→17:00)
[2018-07-15] MEDS: DOCUSATE SODIUM 100 MG CAP PO SCH ×2 (09:42→18:03)
[2018-07-15] MEDS: POLYETHYLENE GLYCOL 3350 17 GM PACK PO SCH ×2 (09:42→17:00)
[2018-07-15] MEDS: CITALOPRAM HYDROBROMIDE 20 MG TAB PO SCH (09:42)
[2018-07-15] MEDS: DICYCLOMINE HCL 20 MG TAB PO SCH ×4 (09:42→21:18)
[2018-07-15] MEDS: SODIUM CHLORIDE 0.9% 1000ML 1,000 ML IV SCH (09:43)
[2018-07-15] MEDS: NIFEDIPINE CR 30 MG TAB PO SCH (09:43)
[2018-07-15] MEDS: PHENAZOPYRIDINE HCL 100 MG TAB PO SCH ×3 (09:43→18:03)
[2018-07-15] MEDS: PROMETHAZINE 12.5MG/ NACL 0.9% 12.5 MG/50 ML BAG IV PRN (11:59)
[2018-07-15] MEDS: HYDROMORPHONE 2MG/ML 2 MG/ML ML IV PRN (11:59)
[2018-07-15] MEDS: TAMSULOSIN HCL 0.4 MG CAP PO SCH (18:03)
[2018-07-15] MEDS: AMITRIPTYLINE HCL 10 MG TAB PO SCH (18:03)
[2018-07-15] MEDS ORDERED: CITRATE OF MAGNESIA 300ML BOTTLE PO NR (19:45)
[2018-07-15] MEDS ORDERED: METRONIDAZOLE 500MG/NS 100ML 100 ML IV SCH (21:00)
[2018-07-16] VITALS (7 sets, daily range): BP systolic 105–144; BP diastolic 53–65
[2018-07-16] MEDS: HYDROMORPHONE 2MG/ML 2 MG/ML ML IV PRN ×2 (00:59→17:45)
[2018-07-16] MEDS: PROMETHAZINE 12.5MG/ NACL 0.9% 12.5 MG/50 ML BAG IV PRN ×3 (01:07→17:45)
[2018-07-16] MEDS: SODIUM CHLORIDE 0.9% 1000ML 1,000 ML IV SCH ×2 (02:20→18:03)
[2018-07-16] MEDS: PANTOPRAZOL 40MG/SOD CHL 0.9% 50 ML IV SCH ×2 (02:49→08:14)
[2018-07-16] MEDS: METRONIDAZOLE 500MG/NS 100ML 100 ML IV SCH ×4 (03:00→21:50)
[2018-07-16] MEDS: LEVOTHYROXINE SODIUM 112 MCG TAB PO SCH (05:55)
--- NOTE | 2018-07-16 07:32 | NUR ---
REPORT GIVEN TO ONCOMING NURSE,WALKING ROUNDS MADE.PT RESTING IN BED WITH NO S/S OF DISTRESS.
[2018-07-16] MEDS: POLYETHYLENE GLYCOL 3350 17 GM PACK PO SCH ×2 (09:00→17:00)
[2018-07-16] MEDS: CITALOPRAM HYDROBROMIDE 20 MG TAB PO SCH (09:43)
[2018-07-16] MEDS: DOCUSATE SODIUM 100 MG CAP PO SCH ×2 (09:43→18:03)
[2018-07-16] MEDS: NIFEDIPINE CR 30 MG TAB PO SCH (09:43)
[2018-07-16] MEDS: PHENAZOPYRIDINE HCL 100 MG TAB PO SCH ×3 (09:43→18:04)
[2018-07-16] MEDS: DICYCLOMINE HCL 20 MG TAB PO SCH ×4 (09:43→21:50)
[2018-07-16] MEDS: RIFAXIMIN 550 MG TABLET PO SCH ×2 (09:44→17:00)
[2018-07-16] MEDS: ALPRAZOLAM 1 MG TAB PO PRN (11:31)
--- NOTE | 2018-07-16 13:46 | NUR ---
CALLED REPORT TO ANNIKA IN MED SURG 3. TRANSFERRING PT UPSTAIRS
--- NOTE | 2018-07-16 14:15 | NUR ---
TRANSFERRED PT UPSTAIRS TO ROOM 298. FAMILY AWARE
--- NOTE | 2018-07-16 14:40 | NUR ---
Pt received from [facility] 1 via wheelchair. Alert and oriented x4 with saline lock #20 patent in left forearm. Oriented to staff and surroundings. Emotional support given. Fall precautions maintained. Call moore within reach. All meds given as ordered. Will monitor
[2018-07-16] MEDS: TAMSULOSIN HCL 0.4 MG CAP PO SCH (18:04)
[2018-07-16] MEDS: AMITRIPTYLINE HCL 10 MG TAB PO SCH (18:04)
--- NOTE | 2018-07-16 18:36 | NUR ---
Pt will be seen by GI Dr. Michael
--- NOTE | 2018-07-16 19:30 | NUR ---
Bedside rounds complete with morning nurse. Pt siting in bed 60 degrees. Alert to name. Denies pain at this time. Family at bedside. No acute distress noted.
[2018-07-16] MEDS: ZOLPIDEM TARTRATE 10 MG TAB PO PRN (21:50)
--- NOTE | 2018-07-16 21:50 | NUR ---
Spoke with Dr.M. Miranda via phone informed me to tell Pt he will visit her in the morning if she's not seen by Dr. Cervantes.
[2018-07-17] VITALS (7 sets, daily range): BP systolic 121–167; BP diastolic 58–72
[2018-07-17] MEDS: METRONIDAZOLE 500MG/NS 100ML 100 ML IV SCH ×4 (03:19→21:10)
[2018-07-17] MEDS: LEVOTHYROXINE SODIUM 112 MCG TAB PO SCH (05:38)
[2018-07-17] MEDS: RIFAXIMIN 550 MG TABLET PO SCH ×2 (07:27→15:17)
[2018-07-17] MEDS: SODIUM CHLORIDE 0.9% 1000ML 1,000 ML IV SCH ×2 (07:49→18:03)
[2018-07-17] MEDS: POLYETHYLENE GLYCOL 3350 17 GM PACK PO SCH ×3 (09:00→18:03)
--- NOTE | 2018-07-17 09:00 | NUR ---
Pt received resting in bed. Alert and oriented x4 with saline lock #20 patent in right and hand. Oriented to staff and surroundings. Emotional support given. Fall precautions maintained. Call moore within reach. All meds given as ordered. Will monitor
[2018-07-17] MEDS: DICYCLOMINE HCL 20 MG TAB PO SCH ×4 (09:21→21:10)
[2018-07-17] MEDS: DOCUSATE SODIUM 100 MG CAP PO SCH (09:21)
[2018-07-17] MEDS: PANTOPRAZOL 40MG/SOD CHL 0.9% 50 ML IV SCH ×3 (09:21→18:03)
[2018-07-17] MEDS: CITALOPRAM HYDROBROMIDE 20 MG TAB PO SCH (09:21)
[2018-07-17] MEDS: NIFEDIPINE CR 30 MG TAB PO SCH (09:22)
[2018-07-17] MEDS: PHENAZOPYRIDINE HCL 100 MG TAB PO SCH ×3 (09:22→18:03)
[2018-07-17] MEDS: PROMETHAZINE 12.5MG/ NACL 0.9% 12.5 MG/50 ML BAG IV PRN ×2 (09:30→16:45)
[2018-07-17] MEDS: HYDROMORPHONE 2MG/ML 2 MG/ML ML IV PRN ×2 (09:30→16:45)
[2018-07-17] MEDS: VSL PO SCH (12:04)
--- NOTE | 2018-07-17 14:18 | Progress Note ---
DATE: CARDIOLOGY PROGRESS NOTE SUBJECTIVE: Patient still reports abdominal discomfort. Self reported "constipation." However, reports watery stools. Denies any chest pain, shortness of breath or bleeding complaints. OBJECTIVE VITAL SIGNS: Temperature is 97.5, heart rate is 65, respirations are 18, blood pressure is 140/63, oxygen saturation 100% on room air. GENERAL: Well-appearing obese woman lying comfortably in bed in no apparent distress. VASCULAR: Regular rate and rhythm. LUNGS: Clear to auscultation. ABDOMEN: Soft and nontender. Normoactive bowel sounds. EXTREMITIES: No edema. MEDICATIONS: Reviewed. LABORATORY DATA: Reviewed. Imaging data including a CT angiogram of the abdomen and pelvis showed no evidence to substantiate mesenteric ischemia, significant visceral vessels stenosis or bowel wall thickening. No acute abnormality within the abdomen. IMPRESSION 1. Abdominal pain. 2. Anxiety and depression. 3. Diarrhea and constipation. 4. Hypertension. RECOMMENDATIONS: Continue current cardiovascular medications for irritable bowel syndrome, pain and anxiety and depression. She is hemodynamically stable from a cardiovascular standpoint. Gastroenterology has been consulted and will evaluate the patient. There is no acute general surgery need at this point in time. If no further evaluation with gastroenterology is needed as an inpatient, patient may be discharged with outpatient followup. Job#: [id number] ANUM
[2018-07-17] MEDS: TAMSULOSIN HCL 0.4 MG CAP PO SCH (18:03)
[2018-07-17] MEDS: AMITRIPTYLINE HCL 10 MG TAB PO SCH (18:03)
--- NOTE | 2018-07-17 18:26 | NUR ---
Pt resting comfortably in bed. Plan for possible discharge tomorrow. Emotional support given. Will endorse to next shift
[2018-07-17] MEDS: ZOLPIDEM TARTRATE 10 MG TAB PO PRN (21:10)
[2018-07-18] VITALS (10 sets, daily range): BP systolic 113–174; BP diastolic 53–88
[2018-07-18] MEDS: PANTOPRAZOL 40MG/SOD CHL 0.9% 50 ML IV SCH ×5 (00:19→21:10)
[2018-07-18] MEDS: METRONIDAZOLE 500MG/NS 100ML 100 ML IV SCH ×4 (03:35→20:30)
[2018-07-18] MEDS: HYDROMORPHONE 2MG/ML 2 MG/ML ML IV PRN ×2 (05:45→12:29)
[2018-07-18] MEDS: LEVOTHYROXINE SODIUM 112 MCG TAB PO SCH (06:03)
--- NOTE | 2018-07-18 07:30 | NUR ---
PATIENT IS IN STABLE CONDITION WITH NO S/S OF RESPIRATORY DISTRESS. NO PAIN VOICED. IV FLUIDS AND IV PROTONIX INFUSING. BED ALARM ON. CALL LIGHT IS WITHIN REACH, INSTRUCTED TO CALL FOR ASSISTANCE NEEDED.
[2018-07-18] MEDS: SODIUM CHLORIDE 0.9% 1000ML 1,000 ML IV SCH ×2 (07:40→21:10)
[2018-07-18] MEDS: PROMETHAZINE 12.5MG/ NACL 0.9% 12.5 MG/50 ML BAG IV PRN (08:16)
--- NOTE | 2018-07-18 08:50 | NUR ---
PATIENT OFF THE UNIT PER WHEELCHAIR TO RADIOLOGY- PATIENT IS IN STABLE CONDITION WITH NO S/S OF RESPIRATORY DISTRESS.
[2018-07-18] MEDS: POLYETHYLENE GLYCOL 3350 17 GM PACK PO SCH ×2 (09:00→17:00)
[2018-07-18] MEDS: RIFAXIMIN 550 MG TABLET PO SCH ×2 (09:00→17:32)
[2018-07-18] MEDS: DICYCLOMINE HCL 20 MG TAB PO SCH ×4 (09:00→20:30)
[2018-07-18] MEDS: PHENAZOPYRIDINE HCL 100 MG TAB PO SCH ×3 (09:00→18:05)
--- NOTE | 2018-07-18 11:51 | NUR ---
CALL PLACED OUT TO DR. BOOTHE REGARDING DIET ORDER- AWAITING CALLBACK.
--- NOTE | 2018-07-18 12:07 | NUR ---
CALL PLACED OUT TO DR. WILLIAMSON REGARDING BP MEDICATION FOR PATIENT'S MANUAL BP OF 174/88- AWAITING CALLBACK.
--- NOTE | 2018-07-18 12:40 | NUR ---
RECEIVED CALL BACK FROM DR. Zaira MEJIA TO RESUME GI SOFT DIET AND PO MEDICATIONS.
--- NOTE | 2018-07-18 12:41 | Diagnostic Imaging Report ---
PROCEDURE: SMALL BOWEL SERIES COMPARISON: None. INDICATIONS: ABDOMINAL PAIN TECHNIQUE: The patient was given oral contrast to drink and multiple sequential images of the abdomen were obtained through one hour and 20 minutes until contrast was noted to reach the ascending colon. Multiple spot images of the small bowel and terminal ileum were obtained. FINDINGS: Tile Trimmer film reveals clips in the right upper quadrant from a prior cholecystectomy. There is normal small bowel motility and mobility. Small bowel caliber and folds are within normal limits. There is no evidence of intraluminal mass or extrinsic compression. The terminal ileum is normal in appearance. Fluoroscopy time: 0.8 minutes Total dose: 49.59 mGy CONCLUSION: Normal small bowel series. Dillan Florence D.O. Dictated by: Dillan Florence D.O. on 07/18/2018 at 12:51 Electronically approved by: Dillan Florence D.O. on 07/18/2018 at 12:51
[2018-07-18] MEDS: CITALOPRAM HYDROBROMIDE 20 MG TAB PO SCH (12:57)
[2018-07-18] MEDS: VSL PO SCH (12:57)
[2018-07-18] MEDS: NIFEDIPINE CR 30 MG TAB PO SCH (12:58)
[2018-07-18] MEDS: ALPRAZOLAM 1 MG TAB PO PRN (17:40)
[2018-07-18] MEDS: TAMSULOSIN HCL 0.4 MG CAP PO SCH (18:05)
[2018-07-18] MEDS: AMITRIPTYLINE HCL 10 MG TAB PO SCH (18:05)
--- NOTE | 2018-07-18 19:10 | NUR ---
PATIENT IS RESTING IN BED-IN STABLE CONDITION WITH NO S/S OF RESPIRATORY DISTRESS. DAUGHTER PRESENT IN ROOM AND ASKED FOR BED ALARM TO BE OFF SO SHE CAN SIT AND TAKE HER MOM TO THE RESTROOM. DAUGHTER WILL INFORM FIRER MARINE NURSE WHEN SHE WILL LEAVE SO BED ALARM CAN BE TURNED ON. CALL LIGHT IS WITHIN REACH, INSTRUCTED TO CALL FOR ASSISTANCE NEEDED. REPORT GIVEN TO ONCOMING NURSE.
--- NOTE | 2018-07-18 19:30 | NUR ---
patient recieved awake, alert, lying quietly in bed. vss. no c/o pain noted. ivf continue to infuse without difficulty. pm assessment complete. patient instructed to call for assistance when needed.
--- NOTE | 2018-07-18 21:40 | NUR ---
patient medicated with dilaudid 2 mg and zofran 4 mg ivp for pain and nausea at this time. Addendum: 07/19/18 at 0050 by Bel Raymond RN error--wrong patient.
[2018-07-19] VITALS (7 sets, daily range): BP systolic 124–157; BP diastolic 56–68
[2018-07-19] MEDS: HYDROMORPHONE 2MG/ML 2 MG/ML ML IV PRN ×3 (01:00→19:57)
--- NOTE | 2018-07-19 01:00 | NUR ---
patient oob to bathroom with assistance. small loose bm noted. patient medicated with dilaudid 0.5 mg ivp for c/o abd pain 01/07.
[2018-07-19] MEDS: METRONIDAZOLE 500MG/NS 100ML 100 ML IV SCH ×4 (02:20→20:19)
[2018-07-19] MEDS ORDERED: PANTOPRAZOL 40MG/SOD CHL 0.9% 50 ML IV ONE (02:24)
[2018-07-19] MEDS: PANTOPRAZOL 40MG/SOD CHL 0.9% 50 ML IV SCH (03:00)
--- NOTE | 2018-07-19 04:55 | NUR ---
patient awake, lying quietly in bed. no c/o pain noted this am. ivf/protonix drip continues to infuse without difficulty.
[2018-07-19] MEDS: LEVOTHYROXINE SODIUM 112 MCG TAB PO SCH (05:06)
--- NOTE | 2018-07-19 07:16 | NUR ---
PATIENT IS AWAKE, ALERT, AND IN STABLE CONDITION WITH NO S/S OF RESPIRATORY DISTRESS. NO PAIN VOICED. IV FLUIDS INFUSING. BED ALARCALL LIGHT IS WITHIN REACH, INSTRUCTED TO CALL FOR ASSISTANCE NEEDED.
[2018-07-19] MEDS: DICYCLOMINE HCL 20 MG TAB PO SCH ×4 (08:43→20:19)
[2018-07-19] MEDS: VSL PO SCH (08:43)
[2018-07-19] MEDS: POLYETHYLENE GLYCOL 3350 17 GM PACK PO SCH (08:43)
[2018-07-19] MEDS: CITALOPRAM HYDROBROMIDE 20 MG TAB PO SCH (08:43)
[2018-07-19] MEDS: PHENAZOPYRIDINE HCL 100 MG TAB PO SCH ×3 (08:44→17:30)
[2018-07-19] MEDS: RIFAXIMIN 550 MG TABLET PO SCH ×2 (08:44→17:07)
[2018-07-19] MEDS: NIFEDIPINE CR 30 MG TAB PO SCH (08:44)
--- NOTE | 2018-07-19 10:39 | NUR ---
CALL PLACED OUT TO DR. BOOTHE REGARDING IV PROTONIX DRIP MEDICATION. MEDICATION HAS REACHED ITS STOP DATE- AWAITING CALLBACK.
[2018-07-19] MEDS: ALPRAZOLAM 1 MG TAB PO PRN (13:49)
[2018-07-19] MEDS: SODIUM CHLORIDE 0.9% 1000ML 1,000 ML IV SCH (13:54)
--- NOTE | 2018-07-19 16:10 | NUR ---
CALL PLACED OUT TO DR. BOOTHE REGARDING DISCHARGE CLEARANCE PER DR. WADSWORTH- AWAITING CALLBACK.
--- NOTE | 2018-07-19 17:01 | Progress Note ---
DATE: CARDIOLOGY PROGRESS NOTE SUBJECTIVE: Patient states that she had mild abdominal pain this morning; however, is currently feeling well. Reports shaking when going to the bathroom. OBJECTIVE VITAL SIGNS: Temperature is 98.7, heart rate is 73, respirations are 20, blood pressure is 157/68, oxygen saturation is 96% on room air. GENERAL: She is a well-appearing elderly woman lying comfortably in bed, no apparent distress. CARDIOVASCULAR: Regular rate and rhythm. LUNGS: Clear to auscultation. ABDOMEN: Soft, nontender. EXTREMITIES: No edema. VASCULAR: 2+ pulses. NEUROLOGICAL: No focal deficits noted. All medications reviewed. LABORATORY DATA: None current. SMALL-BOWEL X-RAY: Yesterday showed normal small-bowel series. IMPRESSION 1. Abdominal pain. 2. Anxiety/depression. 3. Diarrhea and constipation. 4. Hypertension. 5. Irritable bowel syndrome. PLAN: Continue all current cardiovascular medications and treatments for her anxiety and gastrointestinal issues. Blood pressure is mildly elevated; so, will increase Procardia. Appreciate Dr. Miranda's input. General Surgery has seen the patient, and no acute surgical need is required at this time. If no further evaluation or treatment is to be performed by Gastroenterology, the patient may be discharged with outpatient followup. Job#: [id number] CHRIS
[2018-07-19] MEDS: TAMSULOSIN HCL 0.4 MG CAP PO SCH (17:07)
[2018-07-19] MEDS: AMITRIPTYLINE HCL 10 MG TAB PO SCH (17:07)
--- NOTE | 2018-07-19 19:01 | NUR ---
PATIENT IS SITTING UP IN THE RECLINER- IN STABLE CONDITION WITH NO S/S OF RESPIRATORY DISTRESS. NO PAIN VOICED. IV FLUIDS INFUSING. DAUGHTER PRESENT NEAR RECLINER. REPORT GIVEN TO ONCOMING NURSE.
--- NOTE | 2018-07-19 19:15 | NUR ---
patient recieved awake, alert, sitting up in chair. vss. no c/o pain noted. ivf continue to infuse without difficulty. pm assessment complete. daughter noted at the bedside. patient/daughter instructed to call for assistance when needed.
[2018-07-19] MEDS: ONDANSETRON HCL INJ 2 MG/ML VIAL IV PRN (19:57)
--- NOTE | 2018-07-19 19:57 | NUR ---
patient medicated with dilaudid 0.5 mg and zofran 4 mg ivp for c/o abd pain /. will continue to monitor. Dr. Ponce Bradford here to see patient. family will discuss and decide on laparoscopy for tomorrow.
[2018-07-19] MEDS: ZOLPIDEM TARTRATE 10 MG TAB PO PRN (20:55)
--- NOTE | 2018-07-19 21:00 | NUR ---
patient and family agreed on diagnostic laparoscopy for tomorrow. Dr. Ponce Bradford notified of this at this time. orders recieved to obtain consent and to keep patient npo after mn. patient/daughter instructed of this.
--- NOTE | 2018-07-20 | NUR ---
patient ambulatory to bathroom with assistance. patient voids without difficulty. no c/o pain noted at this time.
[2018-07-20] MEDS: PANTOPRAZOLE INJ 40 MG in SODIUM CHLORIDE 0.9% 50ML 50 ML IV SCH ×2 (01:00→06:00)
--- NOTE | 2018-07-20 01:00 | NUR ---
protonix drip reinitiated per orders at this time.
[2018-07-20] MEDS ORDERED: PANTOPRAZOL 40MG/SOD CHL 0.9% 50 ML IV ONE ×2 (01:06→04:44)
[2018-07-20] MEDS: METRONIDAZOLE 500MG/NS 100ML 100 ML IV SCH ×3 (02:58→15:00)
[2018-07-20] MEDS: LEVOTHYROXINE SODIUM 112 MCG TAB PO SCH (05:23)
[2018-07-20 05:56] LABS: BASOPHILS % 0.7 % (0.0-1.0); EOSINOPHILS # (AUTO) 0.1 (0.0-0.4); EOSINOPHILS % 4.3 % (0.0-6.0); HEMATOCRIT 29.6 % (34.2-44.1); HEMOGLOBIN 9.4 g/dL (12.0-16.0); LYMPHOCYTES # (AUTO) 0.8 (1.0-3.2); LYMPHOCYTES % 26.4 % (18.0-39.1); MEAN CORPUSCULAR HEMOGLOBIN 27.8 pg (28-32); MEAN CORPUSCULAR HGB CONC 31.8 g/dL (31-35); MEAN CORPUSCULAR VOLUME 87.6 fL (81-99); MONOCYTES # (AUTO) 0.3 (0.2-0.8); MONOCYTES % 10.7 % (4.4-11.3); NEUTROPHILS # (AUTO) 1.7 (2.1-6.9); NEUTROPHILS % 57.6 % (38.7-80.0); PLATELET COUNT 137 x10e3/uL (140-360); RED BLOOD COUNT 3.38 x10e6/uL (3.6-5.1); RED CELL DISTRIBUTION WIDTH 14.6 % (11.7-14.4)
[2018-07-20] MEDS: SODIUM CHLORIDE 0.9% 1000ML 1,000 ML IV SCH ×3 (06:00→22:55)
--- NOTE | 2018-07-20 06:00 | NUR ---
consent obtained for diagnostic laparoscopy per orders and placed on patients chart.
[2018-07-20 06:15] LABS: ALBUMIN 3.1 g/dL (3.5-5.0); ALBUMIN/GLOBULIN RATIO 1.3 (0.8-2.0); ANION GAP 11.3 mmol/L (8-16); CALCIUM 8.1 mg/dL (8.4-10.2); CREATININE, SERUM 0.94 mg/dL (0.57-1.11); POTASSIUM 3.3 mmol/L (3.5-5.1)
[2018-07-20] MEDS: VSL PO SCH (09:00)
[2018-07-20] MEDS: POLYETHYLENE GLYCOL 3350 17 GM PACK PO SCH (09:00)
[2018-07-20 09:05] VITALS: BP 148/65
[2018-07-20] MEDS: HYDROMORPHONE 2MG/ML 2 MG/ML ML IV PRN ×2 (09:25→13:59)
[2018-07-20] MEDS: RIFAXIMIN 550 MG TABLET PO SCH ×2 (09:26→17:00)
[2018-07-20] MEDS: PHENAZOPYRIDINE HCL 100 MG TAB PO SCH ×3 (09:26→17:22)
[2018-07-20] MEDS: CITALOPRAM HYDROBROMIDE 20 MG TAB PO SCH (09:26)
[2018-07-20] MEDS: NIFEDIPINE CR 30 MG TAB PO SCH (09:26)
[2018-07-20] MEDS: DICYCLOMINE HCL 20 MG TAB PO SCH ×4 (09:26→21:17)
--- NOTE | 2018-07-20 09:30 | NUR ---
PT IN BED SLEEPING NO S/S DISCOMFORT.
--- NOTE | 2018-07-20 09:31 | NUR ---
PT C/O SEVERE PAIN TRYING TO URINATE BLADDER SCAN SHOWED 548 CC RESIDUAL ,PAGED DR WADSWORTH,
--- NOTE | 2018-07-20 09:45 | NUR ---
maldonado inserted 500 cc odalis urine returned
[2018-07-20] MEDS ORDERED: SODIUM CHLORIDE 0.9% 50ML 50 ML ONE (11:07)
[2018-07-20] MEDS: PANTOPRAZOL 40MG/SOD CHL 0.9% 50 ML IV SCH ×3 (12:30→21:12)
[2018-07-20 13:40] VITALS: BP 142/63
[2018-07-20] MEDS ORDERED: ONDANSETRON HCL INJ 2 MG/ML VIAL ONE (14:16)
[2018-07-20] MEDS ORDERED: DEXAMETHASONE SOD PHOS INJ 4 MG/ML VIAL ONE (14:16)
[2018-07-20] MEDS ORDERED: GLYCOPYRROLATE INJ 1MG/ 5 ML SYR ONE (14:16)
[2018-07-20] MEDS ORDERED: SEVOFLURANE INHAL SOLN 250 ML PEN BTL ONE (14:16)
[2018-07-20] MEDS ORDERED: NEOSTIGMINE 5 MG/5ML SYR ONE (14:16)
[2018-07-20] MEDS ORDERED: ROCURONIUM BROMIDE 10 MG/ML 5ML VIAL ONE (14:16)
[2018-07-20] MEDS ORDERED: LIDOCAINE HCL 2% LOCAL INJ 5 ML SDV VIAL INJ ONE (14:16)
[2018-07-20] MEDS ORDERED: PROPOFOL IV EMULSION 10 MG/ML 20 ML VIAL ONE (14:16)
[2018-07-20] MEDS ORDERED: BUPIVACAINE 0.25% 30ML SDV INJ ONE (14:27)
--- NOTE | 2018-07-20 14:35 | NUR ---
PT TRANSPORTED TO OR VIA BED
[2018-07-20] MEDS ORDERED: METRONIDAZOLE 500MG/NS 100ML 100 ML IV ONE (15:16)
[2018-07-20] MEDS ORDERED: FENTANYL CITRATE/PF 100MCG/2 ML INJ ONE ×2 (16:43→18:40)
--- NOTE | 2018-07-20 16:43 | NUR ---
Nutrition Screen Note RD Recommendation for Physician: -Advance to GI soft diet as medically appropriate -Ordered Ensure Compact w/ each meal per family request (Notified RN Susan) -Encourage PO and hydration Plan of Care: RD following, monitoring for adequacy and tolerance Nutrition reason for involvement: Follow up Primary Diagnose(s): Abdominal pain Ht:60 in Wt:174lbs BMI:34 kg/m2 IBW:100lbs RD Assessment: (07/20/2018) Pt was discussed during rounds. Ex-lap was done today. Pt has had on and off appetite since admission. RN recorded ~50-75% PO intake. Family has been bringing foods and Ensure from home to feed pt. Pt usually drinks 1-2 Ensure a day. No complains of nausea or vomiting today. LBM 07/19, liquid stool per chart (possibly due to meds). No chewing or swallowing difficulty noted. Will continue to monitor and follow. (07/14/2018) Initial encounter with patient. Diet Hx: Pt denies any known food allergies. Pt denies any wt changes, +constipation, no difficulty chewing or swallowing and is reporting a good appetite and is ready to eat solid foods. Current Diet: full liquid diet Malnutrition Evaluation (07/14/2018) The patient does not meet criteria for a specified degree of malnutrition at this time. Will re-evaluate at follow-up as appropriate. Diet Education Needs Assessment: Diet education not indicated. Diet Adequacy: Meeting calorie needs, Meeting protein needs, Meeting fluid needs Tolerance: Tolerating PO Nutrition Care Level: low Jerilyn Parnell, MS, RD, LD
[2018-07-20] MEDS ORDERED: HYDROMORPHONE 2MG/ML 2 MG/ML ML ONE (16:59)
--- NOTE | 2018-07-20 17:21 | Operative Report ---
DATE OF PROCEDURE: July 20, 2018 PREOPERATIVE DIAGNOSIS: Abdominal and pelvic pain. Rule out gastrointestinal or pelvic pathology. POSTOPERATIVE DIAGNOSIS: Right fimbrial cyst. No other abdominal pathology except for intraabdominal adhesions. OPERATION PERFORMED: Diagnostic laparoscopy, resection of a right fimbrial cyst, and lysis of anterior abdominal adhesions. ANESTHESIA: General. COMPLICATIONS: None. ESTIMATED BLOOD LOSS: Minimal. DESCRIPTION OF PROCEDURE: With the patient lying in bed in the supine position under good general endotracheal anesthesia, the abdomen was prepped with Betadine solution and draped in the usual manner. A Veress needle was introduced into the umbilicus, and pneumoperitoneum was established without any difficulty. A 5 mm trocar was placed into the umbilicus, and a 5 mm video laparoscope was placed into the intraabdominal cavity. Under direct vision, a 5 mm trocar was placed in the suprapubic region and another 5 mm trocar was placed in the left lower abdomen. Video laparoscopy at this point revealed some adhesions to the anterior abdominal wall from the patient's previous gallbladder surgery. All of these adhesions were then slowly and carefully taken down. Examination of the liver revealed the liver to have a normal appearance. The undersurface of the right lobe of the liver was stuck with adhesions from the patient's recent cholecystectomy. We decided to leave those adhesions alone. The pelvis was then examined. The uterus appeared to be within normal limits. The right and left ovaries were involuted, which was normal for the patient's age. There was a right fimbrial cyst probably about 3 cm in size, which was a simple cyst, and this was simply resected without any problems. Examination of the cul-de-sac did not reveal any sign of endometriosis. There were no adhesions. There were no lesions in the area. The bowel was then run. The cecum was identified, and the appendix was partially retrocecal and perfectly normal. The ascending colon, transverse colon and the rest of the colon externally appeared to be within normal limits. There was no sign of any inflammatory reaction in the cul-de-sac or in the sigmoid colon. The small bowel was then run from the terminal ileum all the way to the ligament of Treitz, and the small bowel was perfectly normal. There were no adhesions that were impeding the flow of the bowel at any point. The whole area was then thoroughly irrigated. All of the excess fluid was aspirated, and the pneumoperitoneum was evacuated and the procedure was concluded by closing the trocars sites with subcuticular 5-0 Vicryl, Benzoin, Steri-Strips and Band-Aids. The patient tolerated the procedure well and returned to the recovery room in stable condition. Job#: [id number] EV
[2018-07-20] MEDS: AMITRIPTYLINE HCL 10 MG TAB PO SCH (17:22)
[2018-07-20] MEDS: TAMSULOSIN HCL 0.4 MG CAP PO SCH ×2 (17:22→20:12)
--- NOTE | 2018-07-20 17:40 | NUR ---
RECD PT FROM OR VIA BED DROWSY,EASILY AROUSED,CAMP TO BSD, IVF INFUSING,O2 2L NC IN PLACE,NO S/S DISCOMFORT,VS 143/65,70,97.3
--- NOTE | 2018-07-20 17:45 | NUR ---
BAND AIDS X3 CD&I.TO ABD
[2018-07-20] MEDS ORDERED: MIDAZOLAM HCL 2 MG/2 ML VIAL ONE (18:40)
[2018-07-20] MEDS ORDERED: AMITRIPTYLINE HCL 10 MG TAB PO SCH (19:47)
--- NOTE | 2018-07-20 19:57 | NUR ---
RECEIVED PT IN BED AOX3 .FAMILY AT THE BEDSIDE RESPIRATIONS ARE EVEN AND UNLABORED CALL LIGHT WITH IN REACH CONTINUE TO MONITOR
[2018-07-20 20:00] VITALS: BP 160/71
[2018-07-20] MEDS ORDERED: TRAMADOL HCL 50 MG TAB PO PRN (22:00)
[2018-07-20] MEDS ORDERED: HYDROMORPHONE 2MG/ML 2 MG/ML ML IV PRN (22:00)
[2018-07-20] MEDS: ZOLPIDEM TARTRATE 10 MG TAB PO PRN (22:10)
--- NOTE | 2018-07-20 22:44 | NUR ---
AMBIEN ,PAIN MEDICATION AND OTHER SLEEPING MEDICATIONS ARE D/C .CALLED DR AND RENEW THE MEDICATIONS AND GIVEN SLEEPING PILL.
[2018-07-21] VITALS (8 sets, daily range): BP systolic 113–156; BP diastolic 56–68
[2018-07-21] MEDS: HYDROMORPHONE 2MG/ML 2 MG/ML ML IV PRN ×3 (00:35→21:07)
[2018-07-21] MEDS: SODIUM CHLORIDE 0.9% 1000ML 1,000 ML IV SCH ×3 (02:20→15:40)
[2018-07-21] MEDS: PANTOPRAZOL 40MG/SOD CHL 0.9% 50 ML IV SCH ×5 (02:30→22:00)
[2018-07-21] MEDS: LEVOTHYROXINE SODIUM 112 MCG TAB PO SCH (06:13)
[2018-07-21 06:54] LABS: BASOPHILS % 0.2 % (0.0-1.0); EOSINOPHILS % 0.6 % (0.0-6.0); HEMATOCRIT 31.5 % (34.2-44.1); HEMOGLOBIN 10.3 g/dL (12.0-16.0); LYMPHOCYTES # (AUTO) 0.9 (1.0-3.2); LYMPHOCYTES % 17.3 % (18.0-39.1); MEAN CORPUSCULAR HEMOGLOBIN 28.6 pg (28-32); MEAN CORPUSCULAR HGB CONC 32.7 g/dL (31-35); MEAN CORPUSCULAR VOLUME 87.5 fL (81-99); MONOCYTES # (AUTO) 0.5 (0.2-0.8); MONOCYTES % 9.1 % (4.4-11.3); NEUTROPHILS # (AUTO) 3.7 (2.1-6.9); NEUTROPHILS % 72.4 % (38.7-80.0); PLATELET COUNT 177 x10e3/uL (140-360); RED CELL DISTRIBUTION WIDTH 14.4 % (11.7-14.4)
[2018-07-21 07:12] LABS: ANION GAP 12.5 mmol/L (8-16); CALCIUM 8.5 mg/dL (8.4-10.2); CREATININE, SERUM 0.96 mg/dL (0.57-1.11); POTASSIUM 3.5 mmol/L (3.5-5.1)
--- NOTE | 2018-07-21 07:12 | NUR ---
PT C/O PAIN AND GIVEN ORDERED PAIN MEDICATION .CALL LIGHT WITH IN REACH .REPORT GIVEN ORDERED PAIN MEDICATION.
--- NOTE | 2018-07-21 07:30 | NUR ---
PT IN BED SLEEPING ,NO S/S DISCOMFORT.
--- NOTE | 2018-07-21 08:25 | NUR ---
ASSISTED PT UP TO CHAIR TOLERATED WELL.PAIN LEVEL 2 ,DISCOMFORT FROM CAMP
[2018-07-21] MEDS: RIFAXIMIN 550 MG TABLET PO SCH ×2 (09:00→17:00)
[2018-07-21] MEDS: NIFEDIPINE CR 30 MG TAB PO SCH (09:00)
[2018-07-21] MEDS: PHENAZOPYRIDINE HCL 100 MG TAB PO SCH ×3 (09:00→17:59)
[2018-07-21] MEDS: CITALOPRAM HYDROBROMIDE 20 MG TAB PO SCH (09:00)
[2018-07-21] MEDS: POLYETHYLENE GLYCOL 3350 17 GM PACK PO SCH (09:00)
[2018-07-21] MEDS: DICYCLOMINE HCL 20 MG TAB PO SCH ×4 (09:00→21:07)
[2018-07-21] MEDS: VSL PO SCH (09:00)
--- NOTE | 2018-07-21 09:15 | NUR ---
ASSISTED BACK TO BED NO C/O PAIN
--- NOTE | 2018-07-21 12:30 | NUR ---
PT CRYING VERY ANXIOUS MEDICATED,CO PAIN MEDICATED
[2018-07-21] MEDS: ALPRAZOLAM 1 MG TAB PO PRN (12:33)
--- NOTE | 2018-07-21 12:55 | Progress Note ---
DATE: July 21, 2018 CARDIOLOGY PROGRESS NOTE SUBJECTIVE: The patient denies chest pain or shortness of breath. OBJECTIVE VITAL SIGNS: Temperature 98.6 degrees, pulse 66, respiratory rate 20, blood pressure 145/79, oxygen saturation 98% on room air. GENERAL: Awake, alert, no acute distress. LUNGS: Clear to auscultation bilaterally. No wheezes or crackles. CARDIOVASCULAR: Normal rate. Regular rhythm. No murmur. Normal S1, S2. ABDOMEN: Soft. Slightly tender to palpation. EXTREMITIES: No edema. CARDIAC MEDICATIONS 1. Nifedipine 30 mg p.o. daily. 2. Levothyroxine 112 mcg p.o. daily. LABS: WBC 5.04, hemoglobin 10.3, hematocrit 31.5, platelets 177, sodium 139, potassium 3.5, chloride 105, CO2 of 25, BUN 9, creatinine 0.96. IMPRESSION 1. Abdominal pain. 2. Anxiety/depression. 3. Diarrhea and constipation. 4. Irritable bowel syndrome. 5. Hypertension. RECOMMENDATIONS: Continue current cardiac medications. Evaluation of abdominal pain per GI and general surgery. Once patient cleared by consultants, patient will be discharged home for outpatient followup. In the meantime, increase antihypertensive therapy. Job#: [id number] MANDA
--- NOTE | 2018-07-21 17:43 | NUR ---
PT RESTING NO S/S DISCOMFORT OR ANXIETY
[2018-07-21] MEDS: AMITRIPTYLINE HCL 10 MG TAB PO SCH (17:59)
[2018-07-21] MEDS: TAMSULOSIN HCL 0.4 MG CAP PO SCH (17:59)
--- NOTE | 2018-07-21 19:15 | NUR ---
Patient visited in room during nursing rounds. Patient alert and oriented x3. Daughter (Catrina) and son-in-law at bedside visiting. Patient states she feels uncomfortable and feel bloated on her lower abdomen. Aviles catheter in place appearing to drain quite sluggishly. Informed patient will attempt to irrigate and use syringe to withdraw urine to possibly help with the discomfort.
--- NOTE | 2018-07-21 19:18 | NUR ---
With charge nurse (Tonya Perez RN) as witness, maldonado catheter irrigated (20 ml) and aspirated with empty syringe. No urine withdrawn on syringe. Bladder scan performed and resulted 35ml as output. Informed patient and patient's daughter that nurse (Don) will call Dr. Waldo Bradford for notification on patient discomfort.
--- NOTE | 2018-07-21 20:20 | NUR ---
Called and spoke with Dr. Sav Bradford over the phone and informed him of patient's discomfort on lower abdomen. Dr. Bradford denies this is a surgical issue and strongly believes it is a urological issue. Dr. Walod Bradford told nurse (CHAPARRO Ochoa) to call urologist (on-call: Dr. Lawler) to inform of the issue.
--- NOTE | 2018-07-21 20:30 | NUR ---
Called and spoke with Dr. Mitesh Lawler and informed him of patient having discomfort on lower abdomen with maldonado catheter draining sluggishly. Informed Dr. Lwaler bladder scan resulted 35ml in bladder. Dr. Lawler condescendingly said "This is not an emergency" and informed of his displeasure that a bladder scan was performed. Dr. Lawler said that there was nothing wrong with maldonado catheter. Dr. Lawler was rude and insulted nurse (Don) telling him to go back to nursing school for the reason of him being called because of patient's discomfort. Charge nurse (Tonya Perez RN) informed of Dr. Lawler's rude comments. Patient's daughter (Catrina) aware no new orders given by Dr. Lawler and that maldonado was working properly (per Dr. Lawler). Nurse (Don) informed patient to try to move around and possibly might help with the discomfort and release trapped gas in lower abdomen. Patient to given pain medication per request.
[2018-07-21] MEDS: ZOLPIDEM TARTRATE 10 MG TAB PO PRN (21:54)
[2018-07-22] VITALS (7 sets, daily range): BP systolic 105–158; BP diastolic 50–68
[2018-07-22] MEDS: SODIUM CHLORIDE 0.9% 1000ML 1,000 ML IV SCH ×3 (01:04→20:57)
--- NOTE | 2018-07-22 02:10 | NUR ---
Dr. Kervin Miranda came and visited patient in room during rounds. MD aware of patient condition. Patient stated she felt better.
[2018-07-22] MEDS: PANTOPRAZOL 40MG/SOD CHL 0.9% 50 ML IV SCH ×5 (03:30→23:30)
[2018-07-22] MEDS: LEVOTHYROXINE SODIUM 112 MCG TAB PO SCH (06:40)
[2018-07-22] MEDS: RIFAXIMIN 550 MG TABLET PO SCH ×2 (09:00→18:14)
[2018-07-22] MEDS: DICYCLOMINE HCL 20 MG TAB PO SCH ×4 (09:36→20:24)
[2018-07-22] MEDS: NIFEDIPINE CR 30 MG TAB PO SCH (09:36)
[2018-07-22] MEDS: CITALOPRAM HYDROBROMIDE 20 MG TAB PO SCH (09:36)
[2018-07-22] MEDS: POLYETHYLENE GLYCOL 3350 17 GM PACK PO SCH (09:36)
[2018-07-22] MEDS: PHENAZOPYRIDINE HCL 100 MG TAB PO SCH ×3 (09:36→18:14)
[2018-07-22] MEDS: VSL PO SCH (09:40)
[2018-07-22] MEDS: HYDROMORPHONE 2MG/ML 2 MG/ML ML IV PRN ×3 (09:53→23:45)
[2018-07-22] MEDS: ALPRAZOLAM 1 MG TAB PO PRN (13:29)
--- NOTE | 2018-07-22 14:07 | Consultation ---
UROLOGY CONSULTATION DATE OF CONSULTATION: July 21, 2018 CONSULTATION CALLED BY: Dr. Williamson. CHIEF COMPLAINT AND REASON FOR CONSULTATION: Urinary retention. HISTORY OF PRESENT ILLNESS: Ms. Nj is a 78-year-old female patient of Dr. Osorio who the hospital cannot get a hold of. The patient was admitted to the hospital with abdominal pain, has undergone a laparoscopic cyst removal by Dr. Bradford on 07/20/2018. Postoperatively, she had urinary retention greater than 500 mL, nocturia for quite some time with a history of urinary tract infection. PAST MEDICAL HISTORY: Notable for hypertension, anxiety, depression. PAST SURGICAL HISTORY: Cholecystectomy and bilateral tubal ligation. MEDICATIONS: Please see MAR. ALLERGIES: NKDA. SOCIAL HISTORY: No smoking or drinking. FAMILY HISTORY: Denied urologic stones or malignancies. REVIEW OF SYSTEMS: Noncontributory other than problems as mentioned above for 12-point systems. PHYSICAL EXAMINATION GENERAL: An elderly appearing female currently in no acute distress. VITALS: Temperature 99.3, pulse 75, respirations 20, blood pressure 160/71. HEENT: Sclerae anicteric. NECK: Supple. BACK: Without costovertebral angle tenderness bilaterally. ABDOMEN: Soft, nontender, nondistended. No palpable mass. No palpable hernias. No palpable inguinal lymphadenopathy. : Normal female external genitalia. EXTREMITIES: No edema. Moves all 4 extremities. PSYCH: Mood is appropriate. SKIN: Intact. Normal color. PERTINENT LABORATORY DATA: CT scan revealing a 2.8 cm left upper pole renal cyst. L5-S1 disk narrowing. Hemoglobin 11, hematocrit 34, platelet count 174,000. White blood cell count 5910. On admission, platelet count 137,000. Sodium 136, potassium 3.8, chloride 103, bicarb 22, BUN 18, creatinine 0.88, and glucose 83. IMPRESSION 1. Urinary retention. 2. Hypertension. 3. Anemia. 4. Thrombocytopenia. 5. Renal cyst. 6. L5-S1 disk narrowing ? neurogenic bladder. PLAN 1. The patient has a Aviles catheter, has had urinary retention. We would recommend keeping the Aviles catheter and having the patient follow up as an outpatient for urodynamics. For this simple renal cyst, she will need surveillance. Her thrombocytopenia and anemia, this has been improving. Patient's hypertension, we will defer to Dr. Williamson in Primary Service. Urologically, again we recommend continuing the Aviles catheter with the patient to follow up with the urologist of her choice. Job#: [id number] WINTER cc:DR. WILLIAMSON
[2018-07-22] MEDS: TAMSULOSIN HCL 0.4 MG CAP PO SCH (18:14)
[2018-07-22] MEDS: AMITRIPTYLINE HCL 10 MG TAB PO SCH (18:14)
--- NOTE | 2018-07-22 18:50 | Progress Note ---
DATE: July 22, 2018 CARDIOLOGY PROGRESS NOTE SUBJECTIVE: Patient denies chest pain or shortness of breath. She reports lower abdominal pain and constipation. OBJECTIVE VITAL SIGNS: Temperature 99.5 degrees, pulse 73, respiratory rate 17, blood pressure 137/63, oxygen saturation 94% on room air. GENERAL: Awake, alert, in no acute distress. LUNGS: Clear to auscultation bilaterally. No wheezes or crackles. CARDIOVASCULAR: Normal rate, regular rhythm. No murmur. Normal S1 and S2. ABDOMEN: Soft, slightly tender to palpation. EXTREMITIES: No edema. CARDIAC MEDICATIONS 1. Nifedipine 60 mg p.o. daily. 2. Levothyroxine 112 mcg p.o. daily. LABS: None today. IMPRESSION 1. Abdominal pain. 2. Urinary retention. 3. Anxiety/depression. 4. Diarrhea and constipation. 5. Irritable bowel syndrome. 6. Hypertension. RECOMMENDATIONS: Continue current cardiac medications. Patient's blood pressure is for the most part controlled. Evaluation of abdominal pain per GI. Await their clearance for discharge. Urology has evaluated the patient and recommended continuation of Aviles catheter on discharge to follow up with urology as an outpatient. Likely discharge home tomorrow if cleared by GI. Thank you for this consult. We will continue to follow. Job#: [id number] ERICA
--- NOTE | 2018-07-22 19:15 | NUR ---
Patient visited in room during nursing rounds. Patient alert and oriented x3. Daughter at bedside visiting. Aviles in place draining clear dark yellow to orange urine. Protonix drip at 10ml/hr and IVF (Ns at 50ml/hr) infusing via IV. Patient still having some frequent lower abdomen pain. Will medicate patient accordingly.
[2018-07-22] MEDS ORDERED: HYDROCODONE/APAP 10MG-325MG TAB PO ONE (20:30)
--- NOTE | 2018-07-22 20:40 | NUR ---
Dr. Kervin Miranda came and visited patient. MD talked to patient and daughter.
[2018-07-22] MEDS: ZOLPIDEM TARTRATE 10 MG TAB PO PRN (20:55)
[2018-07-23] VITALS: BP 128/60
[2018-07-23] MEDS: HYDROMORPHONE 2MG/ML 2 MG/ML ML IV PRN (03:50)
[2018-07-23 04:00] VITALS: BP 117/56
[2018-07-23] MEDS: LEVOTHYROXINE SODIUM 112 MCG TAB PO SCH (06:39)
[2018-07-23] MEDS: PANTOPRAZOL 40MG/SOD CHL 0.9% 50 ML IV SCH ×2 (06:39→11:46)
[2018-07-23] MEDS: METRONIDAZOLE 500MG/NS 100ML 100 ML IV SCH ×3 (06:39→11:46)
[2018-07-23 07:30] VITALS: BP 112/54
--- NOTE | 2018-07-23 07:30 | NUR ---
RECEIVED PATIENT RESTING IN BED. NO S/S OF DISTRESS NOTED. CALL LIGHT WITHIN REACH. BED IN THE LOWEST POSITION. BED ALARM ON.
[2018-07-23 07:48] VITALS: BP 112/54
[2018-07-23] MEDS: NIFEDIPINE CR 30 MG TAB PO SCH (08:35)
[2018-07-23] MEDS: DICYCLOMINE HCL 20 MG TAB PO SCH ×2 (08:35→12:22)
[2018-07-23] MEDS: PHENAZOPYRIDINE HCL 100 MG TAB PO SCH ×2 (08:35→12:22)
[2018-07-23] MEDS: RIFAXIMIN 550 MG TABLET PO SCH (08:35)
[2018-07-23] MEDS: VSL PO SCH (08:35)
[2018-07-23] MEDS: CITALOPRAM HYDROBROMIDE 20 MG TAB PO SCH (08:35)
[2018-07-23] MEDS ORDERED: POLYETHYLENE GLYCOL 3350 17 GM PACK PO SCH (09:00)
--- NOTE | 2018-07-23 10:16 | NUR ---
CM SPOKE WITH DR. Waldo SUMMERS REGARDING PATIENT'S POC. HE STATES PATIENT IS READY FOR DC FROM HIS STANDPOINT. DR. SUMMERS ALSO EXPRESSED THIS TO MARCEL, RN/BEDSIDE NURSE. NO DC NEEDS AT THIS TIME. CM WILL CONTINUE TO FOLLOW FOR ONGOING ASSESSMENT OF DC NEEDS.
[2018-07-23 11:46] VITALS: BP 121/57
[2018-07-23] MEDS ORDERED: HYDROCODONE/APAP 10MG-325MG TAB PO PRN (14:30)
--- NOTE | 2018-07-23 15:27 | Discharge Summary ---
ADMITTING DIAGNOSIS: Abdominal pain. DISCHARGE DIAGNOSIS: Abdominal pain. HISTORY OF PRESENT ILLNESS: This is a 78-year-old woman with history of anxiety, depression, and hypertension who presents with complaints of abdominal pain and 40-pound weight loss. The patient was admitted for further evaluation. She had a CTA of the abdomen, which did not reveal any evidence of mesenteric ischemia, significant visceral vessel stenosis or bowel wall thickening. GI was consulted for evaluation and management of the patient's irritable bowel syndrome. Given continued abdominal pain, general surgery was consulted and performed diagnostic laparoscopy with resection of a right fimbrial cyst and lysis of anterior abdominal adhesions. Urology was consulted due to urinary retention. A Aviles was placed to be continued upon discharge, and urology recommend outpatient urodynamic study. The patient was discharged home to complete evaluation as an outpatient after discussion with consultants. DISCHARGE MEDICATIONS: Please see medication reconciliation. FOLLOWUP 1. Dr. Arechiga. 2. Dr. Miranda. 3. Dr. Pelaez. 4. Dr. Bradford. PHYSICAL EXAMINATION: Temperature 98.8 degrees, pulse 64, respiratory rate 20, blood pressure 121/57. Oxygen saturation 95% on room air. General: Awake, alert, in no acute distress. Lungs: Clear to auscultation bilaterally with no wheezes or crackles. Cardiovascular: Normal rate, regular rhythm, no murmur. Normal S1 and S2. Abdomen is soft. Slightly tender to palpation. Extremities: No edema. CATHY JIMENEZ MD Job#: [id number]
[2018-07-23 15:54] VITALS: BP 129/62
--- NOTE | 2018-07-23 16:02 | NUR ---
DISCHARGE ORDER RECEIVED FROM . PATIENT IS IN STABLE CONDITION. PAIN AT A TOLERABLE LEVEL AT THIS TIME. IV LINES DC'D WITH TIP INTACT, PRESSURE APPLIED TO SITE, NO BLEEDING NOTED. DISCHARGE TEACHING PROVIDED TO DAUGHTER. ALL DISCHARGE PAPERWORK AND PERSONAL ITEMS ON HAND. PATIENT GIVEN LEG BAG AND ANOTHER CAMP BAG FOR HOME. PATIENT ACCOMPANIED TO PRIVATE AUTO VIA WHEELCHAIR BY STAFF.
[2018-07-26] MEDS ORDERED: LEVOTHYROXINE112 MCG PO (13:03)
[2018-07-26] MEDS ORDERED: PYRIDIUM100 MG PO (13:04)
[2018-07-26] MEDS ORDERED: DICYCLOMINE HCL10 MG PO (13:04)
[2018-07-26] MEDS ORDERED: CLONAZEPAM0.5 MG PO (13:05)
[2018-07-26] MEDS ORDERED: AMITIZA24 MCG PO (13:05)
[2018-07-26] MEDS ORDERED: POLYETHYLENE GL17 GM PO (13:06)
[2018-07-26] MEDS ORDERED: ULTRAM 50MG50 MG PO (13:06)
[2018-07-26] MEDS ORDERED: URIBEL CAPSULE1 EACH PO (13:06)
== END 2018-07-23 16:02 | disposition home or self-care (01) | DRG 337 ==
LOC: CT 11:26 → MED/SURG 19:13 → MED/SURG3 07-16 13:59
PROVIDERS: ADMIT Internal Medicine Interventional Cardiology; ATTEND Internal Medicine Interventional Cardiology
PROC: 0DNW4ZZ Release Peritoneum, Percutaneous Endoscopic Approach (ICD-10-PCS; 2018-07-20)
PROC: 0UB04ZZ Excision of Right Ovary, Percutaneous Endoscopic Approach (ICD-10-PCS; principal; 2018-07-20 15:11)
DX: R10.13 Epigastric pain (principal); Q50.4 Embryonic cyst of fallopian tube; N83.201 Unspecified ovarian cyst, right side; K66.0 Peritoneal adhesions (postprocedural) (postinfection); R33.9 Retention of urine, unspecified; I10 Essential (primary) hypertension; D64.9 Anemia, unspecified; D69.6 Thrombocytopenia, unspecified; N28.1 Cyst of kidney, acquired; N31.9 Neuromuscular dysfunction of bladder, unspecified; M48.07 Spinal stenosis, lumbosacral region; Z88.5 Allergy status to narcotic agent; Z88.2 Allergy status to sulfonamides; Z88.8 Allergy status to other drugs, medicaments and biological substances; E03.9 Hypothyroidism, unspecified; F41.9 Anxiety disorder, unspecified; F32.9 Major depressive disorder, single episode, unspecified; K59.00 Constipation, unspecified
CPT/HCPCS: 36415; 74175; 74250; 80048; 80053; 82565; 84443; 84520; 85025; 85610; 85651; 85730; 86140; 96361; 96366; J0500; J1100; J2001; J2250; J2405; J2550; J2765; J7030; Q9967

== ENCOUNTER → 2018-08-02 | Day surgery (SDC) | payer MEDICARE ==
[2018-07-26 13:50] LABS: BASOPHILS % 0.3 % (0.0-1.0); EOSINOPHILS # (AUTO) 0.2 (0.0-0.4); EOSINOPHILS % 2.8 % (0.0-6.0); HEMATOCRIT 37.3 % (34.2-44.1); HEMOGLOBIN 12.2 g/dL (12.0-16.0); LYMPHOCYTES # (AUTO) 1.3 (1.0-3.2); LYMPHOCYTES % 19.3 % (18.0-39.1); MEAN CORPUSCULAR HEMOGLOBIN 28.6 pg (28-32); MEAN CORPUSCULAR HGB CONC 32.7 g/dL (31-35); MEAN CORPUSCULAR VOLUME 87.4 fL (81-99); MONOCYTES # (AUTO) 0.5 (0.2-0.8); MONOCYTES % 8.3 % (4.4-11.3); NEUTROPHILS # (AUTO) 4.5 (2.1-6.9); PLATELET COUNT 253 x10e3/uL (140-360); RED BLOOD COUNT 4.27 x10e6/uL (3.6-5.1); RED CELL DISTRIBUTION WIDTH 14.6 % (11.7-14.4)
[2018-07-26 14:05] LABS: ANION GAP 16.1 mmol/L (8-16); CALCIUM 9.7 mg/dL (8.4-10.2); CREATININE, SERUM 0.95 mg/dL (0.57-1.11); POTASSIUM 4.1 mmol/L (3.5-5.1)
--- NOTE | 2018-07-26 17:59 | Diagnostic Imaging Report ---
EXAMINATION: CHEST 2 VIEWS INDICATION: ^PRE ADMIT. Hematuria. Preop for surgery and cystoscopy. COMPARISON: CTA abdomen 07/13/2018. FINDINGS: PA and lateral views TUBES and LINES: None. LUNGS: Lungs are well inflated. Lungs are clear. There is no evidence of pneumonia or pulmonary edema. PLEURA: No pleural effusion or pneumothorax. HEART AND MEDIASTINUM: The cardiomediastinal silhouette is unremarkable. BONES AND SOFT TISSUES: No acute osseous lesion. Soft tissues are unremarkable. UPPER ABDOMEN: No free air under the diaphragm. IMPRESSION: No acute thoracic abnormality. Signed by: Dr. Juancho Bah M.D. on 07/26/2018 5:56 PM
[~2018-08-02] MED LIST: ALPRAZOLAM1 MG PO; AMITIZA24 MCG PO; AMITRIPTYLINE H10 MG PO; CEFTRIAXONE SOD 1 GM/NS 50 ML 50 ML IV ONE; CITALOPRAM HBR20 MG PO; CLONAZEPAM0.5 MG PO; DEXAMETHASONE SOD PHOS INJ 4 MG/ML VIAL ONE; DICYCLOMINE HCL10 MG PO; FENTANYL CITRATE/PF 100MCG/2 ML INJ ONE; FLOMAX0.4 MG PO; HYDROMORPHONE 2MG/ML 2 MG/ML ML ONE; LEVOTHYROXINE112 MCG PO; LIDOCAINE HCL 2% LOCAL INJ 5 ML SDV VIAL INJ ONE; NIFEDIPINE ER30 M1 PO; NORCO 10-325 T1 EACH PO; ONDANSETRON HCL INJ 2 MG/ML VIAL ONE; POLYETHYLENE GL17 GM PO; PROPOFOL IV EMULSION 10 MG/ML 20 ML VIAL ONE; PYRIDIUM100 MG PO; SEVOFLURANE INHAL SOLN 250 ML PEN BTL ONE; ULTRAM 50MG50 MG PO; URIBEL CAPSULE1 EACH PO; ZOLPIDEM TARTRA10 MG PO
--- OUTSIDE RECORDS SUMMARY | 2018-08-02 05:28 | XMS REPORT | Clinical Summary ---
Author Author Garcia Rastafari Organization [place] [facility]ast[facility] Address Unknown Phone Unavailable Care Team Providers Care District Sales Leader Name Role Phone Silvano Ryan MD PCP [...] Overview: Added automatically from request for surgery [id number] Postoperative pain 01/27/2018 Intractable epigastric abdominal pain 01/12/2018 Epigastric pain 01/12/2018 Overview: Added automatically from request for surgery [id number] Injury of bile duct 01/12/2018 Overview: Added automatically from request for surgery [id number] Abdominal pain 01/03/2018 Intractable abdominal pain 12/31/2017 [...] pain; Right upper quadrant abdominal pain 01/12/2018 [facility] Internal Medicine - Encounter 01/23/2018 Ceci [...] abdominal pain (Primary Dx); RUQ pain 12/31/2017 [facility] Internal Medicine - Encounter 01/07/2018 Silvano Ryan MD Adnexal tenderness, right (Primary Dx); Stomach ache 12/27/2017 Transcribe Access Orders after 08/01/2017 Immunizations Name Dates Previously Given Next Due [...] Lot Implanted Type Area Manufactur er 11/13/2019 [id number] / / [id number] Stent Bili Advanix Duodbnd Noé 10fr Surgical N/A: N/A BSC 5cm Prldd Naviflex Ds - [id number] Stents ENDOSCOPY Implanted: 01/17/2018 (Quantity not on [...] 12-LEAD STAT 12/31/2017 1:52 PM CDT after 08/01/2017 Results * CT Abdomen Pelvis W Contrast [...] obstruction. Bosniak category 1 left renal cyst. [id number] Procedure Note Hm Interface, Radiology Results Incoming [...] obstruction. Bosniak category 1 left renal cyst. [id number]-[id number] Performing Organization Address City/State/Zipcode Phone Number [facility] [address] [place] [address] * Estimated GFR (05/31/2018 6:03 PM CDT) Estimated GFR 54 (A) mL/min/1.73 m2 [facility] OF Comment: PATHOLOGY AND CatergoryUnitsInte GENOMIC MEDICINE rpretation G1 >=90 Normal or high G2 60-89Mildly decreased [id number] Mildly to moderately decreased [id number] Moderately to severely decreased G4 15-29Severely decreased G5 <15Kidney failure The eGFR was calculated using the Chronic Kidney Disease Epidemiology Collaboration (CKD-EPI) equation. Interpretation is based on recommendations of the National Kidney Foundation-Kidney Disease Outcomes Quality Initiative (NKF-KDOQI) published in 2014. Specimen Blood Performing Organization Address City/State/Zipcode Phone Number [facility] DEPARTMENT OF [address] [place] [address] PATHOLOGY AND GENOMIC MEDICINE * POC creatinine (05/31/2018 6:03 PM CDT) POC creatinine 1.0 (H) 0.5 - 0.9 mg/dl [facility] OF Comment: PATHOLOGY AND Meter ID: [id number] GENOMIC MEDICINE Advertising Account Representative: Nataliegillian Madrid Specimen Blood Performing Organization Address City/[facility] Phone Number [address] [place] [address] PATHOLOGY AND GENOMIC MEDICINE * Mammo Breast Screen Tomosynthesis Bilateral (05/12/2018 8:50 AM CDT) Narrative Performed At PROCEDURE:MAMMO BREAST SCREEN TOMOSYNTHESIS [id number]/13/2018 8:12 AM [facility] This patient's mammogram was interpreted with the [...] mammography. This facility is accredited by [employer] for Mammography. A negative x-ray report should not delay biopsy if a dominant or clinically suspicious mass is present. Not all cancers are identified by x-ray. [id number] The results of this exam have been sent to the patient. Performing Organization Address City/State/Zipcode Phone Number [facility] [address] [place] [address] * Estimated GFR (02/26/2018 6:20 AM CDT) Only the most recent of 29 results within the time period is included. GFR Non Af Amer 54 (A) mL/min/1.73 m2 [facility] PATHOLOGY AND GENOMIC MEDICINE GFR Af Amer 65 mL/min/1.73 m2 [facility] OF Comment: PATHOLOGY AND Chronic kidney [...] Americans. Specimen Plasma specimen Performing Organization Address City/[facility]/Zipcode Phone Number [address] [place] [address] PATHOLOGY AND [employer] [facility] * Manual differential (02/26/2018 6:20 AM CDT) Only the most recent of 3 results within the time period is included. Manual differential PERFORMED [facility] OF PATHOLOGY AND GENOMIC MEDICINE Neutrophils 45.0 36.0 - 66.0 % [facility] PATHOLOGY AND GENOMIC MEDICINE Lymphocytes 38.0 24.0 - 44.0 % [facility] PATHOLOGY AND GENOMIC MEDICINE Monocytes 9.0 (H) 0.0 - 6.0 % [facility] PATHOLOGY AND GENOMIC MEDICINE Eosinophils 2.0 0.0 - 6.0 % [facility] PATHOLOGY AND GENOMIC MEDICINE Basophils 0.0 0.0 - 1.2 % [facility] OF PATHOLOGY AND GENOMIC MEDICINE Metamyelocytes 0 0 - 1 % [facility] PATHOLOGY AND GENOMIC MEDICINE Promyelocytes 0 0 - 1 % [facility] PATHOLOGY AND GENOMIC MEDICINE Reactive lymphocytes 6.0 [facility] PATHOLOGY AND GENOMIC MEDICINE Platelet slide review Quintin adequate [facility] PATHOLOGY AND GENOMIC MEDICINE Anisocytosis Slight [facility] PATHOLOGY AND GENOMIC MEDICINE Polychromasia Slight [facility] PATHOLOGY AND GENOMIC MEDICINE Performing Organization Address City/[facility]/Zipcode Phone Number [address] [place] [phone] PATHOLOGY AND [employer] [facility] * CBC with platelet and differential (02/26/2018 6:20 AM CDT) Only the most recent of 28 results within the time period is included. WBC 3.1 (L) 4.2 - 11.0 k/uL [facility] PATHOLOGY AND GENOMIC MEDICINE RBC 3.40 (L) 4.04 - 5.86 m/uL [facility] OF PATHOLOGY AND GENOMIC MEDICINE HGB 9.3 (L) 11.5 - 15.3 g/dL [facility] PATHOLOGY AND GENOMIC MEDICINE HCT 29.8 (L) 34.0 - 45.0 % [facility] PATHOLOGY AND GENOMIC MEDICINE MCV 87.6 80.0 - 98.0 fL [facility] PATHOLOGY AND GENOMIC MEDICINE MCH 27.4 27.0 - 34.0 pg [facility] PATHOLOGY AND GENOMIC MEDICINE MCHC 31.2 (L) 31.5 - 36.5 g/dL [facility] OF PATHOLOGY AND GENOMIC MEDICINE RDW - SD 42.5 37.0 - 51.0 fL [facility] PATHOLOGY AND GENOMIC MEDICINE MPV 10.7 (H) 7.4 - 10.4 fL [facility] PATHOLOGY AND GENOMIC MEDICINE Platelet count 180 150 - 400 k/uL [facility] PATHOLOGY AND GENOMIC MEDICINE Nucleated RBC 0.00 /100 WBC [facility] PATHOLOGY AND GENOMIC MEDICINE Neutrophils 45.0 36.0 - 66.0 % [facility] PATHOLOGY AND GENOMIC MEDICINE Lymphocytes 38.0 24.0 - 44.0 % [facility] PATHOLOGY AND GENOMIC MEDICINE Monocytes 9.0 (H) 0.0 - 6.0 % [facility] PATHOLOGY AND GENOMIC MEDICINE Eosinophils 2.0 0.0 - 6.0 % [facility] PATHOLOGY AND GENOMIC MEDICINE Basophils 0.0 0.0 - 1.2 % [facility] PATHOLOGY AND GENOMIC MEDICINE Specimen Blood Performing Organization Address City/State/Zipcode Phone Number [facility] [address] [place] [address] PATHOLOGY AND GENOMIC MEDICINE * Basic metabolic panel (02/26/2018 6:20 AM CDT) Only the most recent of 21 results within the time period is included. Sodium 139 135 - 150 mEq/L [facility] PATHOLOGY AND GENOMIC MEDICINE Potassium 3.7 3.5 - 5.0 mEq/L [facility] PATHOLOGY AND GENOMIC MEDICINE Chloride 102 98 - 112 mEq/L [facility] PATHOLOGY AND GENOMIC MEDICINE CO2 27 24 - 31 mmol/L [facility] OF PATHOLOGY AND GENOMIC MEDICINE Anion gap 10@ANIO 7 - 15 mEq/L [facility] PATHOLOGY AND GENOMIC MEDICINE BUN 9 7 - 18 mg/dL [facility] PATHOLOGY AND GENOMIC MEDICINE Creatinine 1.00 (H) 0.50 - 0.90 mg/dL [facility] PATHOLOGY AND GENOMIC MEDICINE Glucose 82 65 - 100 mg/dL [facility] OF PATHOLOGY AND GENOMIC MEDICINE Calcium 9.2 8.8 - 10.2 mg/dL [facility] PATHOLOGY AND GENOMIC MEDICINE Specimen Plasma specimen Performing Organization Address [facility] [place] [address] PATHOLOGY AND GENOMIC MEDICINE * Magnesium level (02/23/2018 5:48 AM CDT) Only the most recent of 6 results within the time period is included. Magnesium 1.70 1.60 - 2.40 mg/dL [facility] PATHOLOGY AND GENOMIC MEDICINE Specimen Plasma specimen Performing Organization Address [facility] [place] [address] PATHOLOGY AND [facility] * Thyroid stimulating hormone (02/22/2018 6:00 AM CDT) Only the most recent of 2 results within the time period is included. TSH 1.74 0.27 - 4.20 uIU/mL [facility] PATHOLOGY AND [facility] Specimen Plasma specimen Performing Organization Address [facility] [place] [address] PATHOLOGY AND [facility] * POC glucose (02/21/2018 6:03 PM CDT) Only the most recent of 7 results within the time period is included. POC glucose 98 65 - 100 mg/dL [facility] Comment: PATHOLOGY AND Meter ID: [id number] GENOMIC MEDICINE Advertising Account Representative: Alfred Rojas Performing Organization Address [facility] [place] [address] PATHOLOGY AND GENOMIC MEDICINE * [place] ERCP [...] are identified. Removal of a biliary stent. [id number] . Procedure Note [facility], Radiology Results Incoming - 02/21/2018 11:05 AM [...] are identified. Removal of a biliary stent. [facility][id number] . Performing Organization Address City/State/Zipcode Phone Number [facility] [address] [place] [address] * IR Endovascular Consult (02/20/2018 2:51 PM [...] drainage catheter located in the gallbladder fossa. [facility]-[id number] Procedure Note Interface, Radiology Results Incoming - [...] drainage catheter located in the gallbladder fossa. [facility]-[id number] Performing Organization Address City/State/Zipcode Phone Number [facility] [address] [place] [address] * CT Abdomen Wo Contrast (02/19/2018 9:06 PM CDT) Narrative Performed At EXAMINATION:CT ABDOMEN WO CONTRAST RADIBANNER CLINICAL HISTORY:s p drainage abscess 02-16-18 COMPARISON:02/07/2018 [...] placement with interval resolution of gallbladder abscess. [facility]-[id number] Procedure Note Hm Interface, Radiology Results Incoming [...] placement with interval resolution of gallbladder abscess. [facility]-[id number] Performing Organization Address City/State/Zipcode Phone Number [facility] [address] [place] [address] * Urinalysis, automated with microscopy (02/17/2018 5:16 AM CDT) Only the most recent of 2 results within the time period is included. Color, UA Yellow [facility] PATHOLOGY AND GENOMIC MEDICINE Appearance, UA Cloudy [facility] PATHOLOGY AND GENOMIC MEDICINE Specific gravity, UA 1.016 1.001 - 1.035 [facility] OF PATHOLOGY AND GENOMIC MEDICINE pH, UA 5.0 5.0 - 8.5 [facility] OF PATHOLOGY AND GENOMIC MEDICINE Protein, UA Negative Negative [facility] OF PATHOLOGY AND GENOMIC MEDICINE Glucose, UA Negative Negative [facility] OF PATHOLOGY AND GENOMIC MEDICINE Ketones, UA Negative Negative [facility] OF PATHOLOGY AND GENOMIC MEDICINE Bilirubin, UA Negative Negative [facility] OF PATHOLOGY AND GENOMIC MEDICINE Blood, UA Moderate (A) Negative [facility] OF PATHOLOGY AND GENOMIC MEDICINE Nitrite, UA Negative Negative [facility] OF PATHOLOGY AND GENOMIC MEDICINE Urobilinogen, UA Negative <2.0 [facility] OF PATHOLOGY AND GENOMIC MEDICINE Leukocyte esterase, UA Large (A) Negative [facility] OF PATHOLOGY AND GENOMIC MEDICINE Epithelial cells, UA Moderate /HPF [facility] OF PATHOLOGY AND GENOMIC MEDICINE Round epithelial cells, Many 0 - 1 /HPF [facility] OF UA PATHOLOGY AND GENOMIC MEDICINE WBC, UA >200 (H) 0 - 5 /HPF [facility] OF PATHOLOGY AND GENOMIC MEDICINE RBC, UA 22 (H) 0 - 5 /HPF [facility] OF PATHOLOGY AND GENOMIC MEDICINE Bacteria, UA Trace None seen [facility] OF PATHOLOGY AND GENOMIC MEDICINE Amorphous crystals Few [facility] OF PATHOLOGY AND GENOMIC MEDICINE WBC clumps, UA Many (A) [facility] OF PATHOLOGY AND GENOMIC MEDICINE Yeast, UA None seen [facility] OF PATHOLOGY AND GENOMIC MEDICINE Yeast with pseudohyphae, None seen [facility] OF UA PATHOLOGY AND GENOMIC MEDICINE Specimen Urine Performing Organization Address City/State/Zipcode Phone Number [facility] DEPARTMENT OF [address] [place] [address] PATHOLOGY AND GENOMIC MEDICINE * Gram stain (02/17/2018 5:16 AM CDT) Only the most recent of 3 results within the time period is included. Gram stain result Few WBC's [facility] DEPARTMENT OF Rare Gram negative rods PATHOLOGY AND Comment: GENOMIC MEDICINE Specimen Information Specimen Source: Urine Specimen Site: Clean catch Specimen Urine Performing Organization Address City/State/Zipcode Phone Number [facility] DEPARTMENT OF [address] [place] [address] PATHOLOGY AND GENOMIC MEDICINE * Urine culture (02/17/2018 5:16 AM CDT) Only the most recent of 6 results within the time period is included. Urine culture isolate Klebsiella pneumoniae [facility] DEPARTMENT OF colony count undetermined, PATHOLOGY AND probably due to inhibiting GENOMIC MEDICINE substance. The performance characteristics of this assay on this isolate were validated by the Microbiology Laboratory at [facility].This source has not been approved by the [...] pneumoniae Performing Organization Address City/State/Zipcode Phone Number [facility] DEPARTMENT OF [address] [place] [address] PATHOLOGY AND GENOMIC MEDICINE * XR Chest 2 Vw (02/16/2018 7:05 PM CDT) Narrative Performed At EXAMINATION:XR CHEST 2 VW RADIANT CLINICAL HISTORY:fever COMPARISON:None. IMPRESSION: Atelectasis in the left lower lobe The right lung is clear The heart is nonenlarged Bony structures are within normal limits [facility]-[id number] Procedure Note Hm Interface, Radiology Results Incoming - 02/16/2018 7:14 PM CDT EXAMINATION: XR CHEST 2 VW CLINICAL HISTORY: fever COMPARISON: None. IMPRESSION: Atelectasis in the left lower lobe The right lung is clear The heart is nonenlarged Bony structures are within normal limits [facility]-[id number] Performing Organization Address City/State/Zipcode Phone Number [facility] [address] [place] [address] * CT Guided Abscess Drain (02/16/2018 6:10 [...] fully monitored and given moderate sedation. Doctor-patient lcnq-kl-ptjy time was 30 minutes.. The patient was [...] the Yueh needle was removed.. A 8.3 Burkinan pigtail all-purpose drainage catheter was inserted over [...] good condition. IMPRESSION: There were no complications [facility][id number] Procedure Note Hm Interface, Radiology Results Incoming [...] fully monitored and given moderate sedation. Doctor-patient eoqh-ld-nhii time was 30 minutes.. The patient was [...] the Yueh needle was removed.. A 8.3 Burkinan pigtail all-purpose drainage catheter was inserted over [...] good condition. IMPRESSION: There were no complications [id number] Performing Organization Address City/State/Zipcode Phone Number [facility] [address] [place] [address] * Aerobic culture (02/16/2018 5:35 PM CDT) Aerobic culture isolate Klebsiella pneumoniae [facility] DEPARTMENT OF Occasional PATHOLOGY AND susceptibility to follow GENOMIC MEDICINE (A) Comment: Specimen Information Specimen Source: Abscess Specimen Site: abdominal abscess Aerobic culture isolate Enterococcus faecalis [facility] DEPARTMENT OF Occasional PATHOLOGY AND Enterococcus susceptible to GENOMIC MEDICINE high levels of Gentamicin. Susceptibility results indicate synergy with Penicillins and Vancomycin. This organism is Vancomycin Sensitive. (A) Aerobic culture isolate Alpha Strep, not pneumococcus [facility] DEPARTMENT OF Occasional PATHOLOGY AND identification to [...] mcg/mL: Susceptible Enterococcus faecalis Performing Organization Address [facility] Phone Number [facility] DEPARTMENT OF [address] [place] [address] PATHOLOGY AND GENOMIC MEDICINE * Anaerobic culture (02/16/2018 5:35 PM CDT) Anaerobic culture isolate Zachariahllaraceli mallory [facility] DEPARTMENT OF The performance PATHOLOGY AND characteristics of this assay GENOMIC MEDICINE on this isolate were validated by the Microbiology Laboratory at [facility].This source has not been approved by the U.S. Food and Drug Administration.The results are not intended to be used as the sole means for clinical diagnosis or patient management.The Microbiology Laboratory is authorized under the clinical Laboratory Improvement Amendments of 1988 (CLIA-88) to perform high complexity testing. (A) Comment: Specimen Information Specimen Source: Abscess Specimen Site: abdominal abscess Specimen Abscess Performing Organization Address [facility] Phone Number [facility] DEPARTMENT OF [address] [place] [address] PATHOLOGY AND GENOMIC MEDICINE * Partial thromboplastin time, activated (02/16/2018 2:34 PM CDT) Only the most recent of 5 results within the time period is included. PTT 46.4 (H) 23.0 - 36.0 sec [facility] DEPARTMENT OF Comment: PATHOLOGY AND PTT therapeutic range for [facility] unfractionated heparin is 61.0-112.0 seconds which corresponds to Anti-Xa 0.3-0.7 U/ml. Note:Change in Panic Value The PTT Panic Value is changing from 110 sec. to 100 sec. due to new instrumentation and reagents. Correlation studies have been performed to validate this result. Specimen Blood Performing Organization Address City/[facility] Centercode Phone Number [address] [place] [address] PATHOLOGY AND [facility] * Prothrombin time with INR (02/16/2018 2:34 PM CDT) Only the most recent of 5 results within the time period is included. Prothrombin time 14.5 12.0 - 15.0 sec [facility] DE[facility]MENT OF PATHOLOGY AND [facility] INR 1.11 0.92 - 1.12 [facility] DEPARTMENT OF Comment: PATHOLOGY AND For patients on anticoagulant GENOMIC MEDICINE therapy, reference ranges below: Indication: INR Value Treatment of Venous Thrombosis, 2.0-3.0 pulmonary emboli, or prophylaxis of a venous thrombosis, or systemic emboli. High dose, high risk patients 3.0-4.5 with mechanical valves. NOTE:INR values over 3.0 are sometimes associated with gastrointestinal hemorrhage, especially values over 4.0. Specimen Blood Performing Organization Address [facility] Cent[facility]ode Phone Number [address] AND [facility] * CTA Abdomen Pelvis W And Or [...] abscess at least partially involving the liver. [facility][id number] Procedure Note Interface, Radiology Results - 02/11/2018 [...] abscess at least partially involving the liver. [id number]-[id number] Performing Organization Address City/State/Zipcode Phone Number [facility] [address] [place] [address] * Surgical pathology request (02/11/2018 9:31 AM CDT) Only the most recent of 3 results within the time period is included. [facility] DE[facility]MENT OF PATHOLOGY AND GENOMIC MEDICINE Surgical pathology report See link below for PDF Lab [facility] DEPARTMENT OF Report PATHOLOGY AND GENOMIC MEDICINE Result status This is Final Report to [facility] DEPARTMENT OF [id number] PATHOLOGY AND GENOMIC MEDICINE Performing Organization Address City/State/Zipcode Phone Number [address] [address] PATHOLOGY AND GENOMIC MEDICINE * Urinalysis screen and microscopy, with reflex to culture (02/07/2018 7:40 PM CDT) Only the most recent of 5 results within the time period is included. Specimen site [place]iles [facility]MENT OF PATHOLOGY AND GENOMIC MEDICINE Color, UA Yellow [facility] DE[facility]MENT OF PATHOLOGY AND GENOMIC MEDICINE Appearance, UA Clear [facility] DEPARTMENT OF PATHOLOGY AND GENOMIC MEDICINE Specific gravity, UA 1.015 1.001 - 1.035 [facility] DEPARTMENT OF PATHOLOGY AND GENOMIC MEDICINE pH, UA 6.0 5.0 - 8.5 [facility] DE[facility]MENT OF PATHOLOGY AND GENOMIC MEDICINE Protein, UA Negative Negative [facility] DE[facility]MENT OF PATHOLOGY AND GENOMIC MEDICINE Glucose, UA Negative Negative [facility] DE[facility]MENT OF PATHOLOGY AND GENOMIC MEDICINE Ketones, UA Negative Negative [facility] DE[facility]MENT OF PATHOLOGY AND GENOMIC MEDICINE Bilirubin, UA Negative Negative [facility] DEPARTMENT OF PATHOLOGY AND GENOMIC MEDICINE Blood, UA Negative Negative [facility] DEPARTMENT OF PATHOLOGY AND GENOMIC MEDICINE Nitrite, UA Negative Negative [facility] DEPARTMENT OF PATHOLOGY AND GENOMIC MEDICINE Urobilinogen, UA 2.0 (A) <2.0 [facility] DEPARTMENT OF PATHOLOGY AND GENOMIC MEDICINE Leukocyte esterase, UA Negative Negative [facility] DEPARTMENT OF PATHOLOGY AND GENOMIC MEDICINE Epithelial cells, UA Few /HPF [facility] DEPARTMENT OF PATHOLOGY AND GENOMIC MEDICINE WBC, UA 1 0 - 5 /HPF [facility] OF PATHOLOGY AND GENOMIC MEDICINE RBC, UA <1 0 - 5 /HPF [facility] OF PATHOLOGY AND GENOMIC MEDICINE Bacteria, UA None seen None seen [facility] OF PATHOLOGY AND GENOMIC MEDICINE Yeast, UA None seen [facility] DE[facility] OF PATHOLOGY AND GENOMIC MEDICINE Yeast with pseudohyphae, None seen [facility] DE[facility]MENT OF PATHOLOGY AND GENOMIC MEDICINE Specimen Urine Performing Organization Address City/[facility] [place] [address] PATHOLOGY AND GENOMIC MEDICINE * Troponin (02/07/2018 4:33 PM CDT) Troponin <0.30 0.00 - 0.30 ng/mL [facility] DEPARTMENT OF Comment: PATHOLOGY AND 0.11 - 1.49 GENOMIC MEDICINE ng/mlMay indicate increased risk of acute coronary syndrome. >=1.5 ng/ml Consistent with acute myocardial infarction. The diagnostic value of a single normal or non-diagnostic result is questionable.Serial samples at 2-6 hour intervals are required to rule out acute myocardial injury. Specimen Plasma specimen Performing Organization Address [facility] [place] [address] PATHOLOGY AND [facility] * B natriuretic peptide (02/07/2018 4:33 PM CDT) BNP 195 (H) 0 - 100 pg/mL [facility] DEPART[facility] PATHOLOGY AND GENOMIC MEDICINE Specimen Blood Performing Organization Address City/[facility] [place] [address] PATHOLOGY AND GENOMIC MEDICINE * Lipase level (02/07/2018 4:33 PM CDT) Only the most recent of 8 results within the time period is included. Lipase 43 13 - 60 U/L [facility] DEPARTMENT OF PATHOLOGY AND GENOMIC MEDICINE Specimen Plasma specimen Performing Organization Address City/[facility] [place] [address] PATHOLOGY AND GENOMIC MEDICINE * Comprehensive metabolic panel (02/07/2018 4:33 PM CDT) Only the most recent of 8 results within the time period is included. Sodium 139 135 - 150 mEq/L [facility] DEPARTMENT OF PATHOLOGY AND GENOMIC MEDICINE Potassium 3.1 (L) 3.5 - 5.0 mEq/L [facility] OF PATHOLOGY AND GENOMIC MEDICINE Chloride 99 98 - 112 mEq/L [facility] OF PATHOLOGY AND GENOMIC MEDICINE CO2 25 24 - 31 mmol/L [facility] DE[facility]MENT OF PATHOLOGY AND GENOMIC MEDICINE Anion gap 15@ANIO 7 - 15 mEq/L [facility] OF PATHOLOGY AND GENOMIC MEDICINE BUN 8 7 - 18 mg/dL [facility] OF PATHOLOGY AND GENOMIC MEDICINE Creatinine 0.90 0.50 - 0.90 mg/dL [facility] OF PATHOLOGY AND GENOMIC MEDICINE Glucose 107 (H) 65 - 100 mg/dL [facility] DEPARTMENT OF PATHOLOGY AND GENOMIC MEDICINE Calcium 9.1 8.8 - 10.2 mg/dL [facility] DEPARTMENT OF PATHOLOGY AND GENOMIC MEDICINE Protein 7.2 6.3 - 8.3 g/dL [facility] OF PATHOLOGY AND GENOMIC MEDICINE Albumin 3.1 (L) 3.5 - 5.0 g/dL [facility] OF PATHOLOGY AND GENOMIC MEDICINE A/G ratio 0.8 0.7 - 3.8 [facility] OF PATHOLOGY AND GENOMIC MEDICINE Alkaline phosphatase 86 0 - 104 U/L [facility] DEPART[facility] OF PATHOLOGY AND GENOMIC MEDICINE AST 50 (H) 10 - 35 U/L [facility] DE[facility] OF PATHOLOGY AND GENOMIC MEDICINE ALT 26 5 - 50 U/L [facility] DE[facility]MENT OF PATHOLOGY AND GENOMIC MEDICINE Total bilirubin 0.4 0.2 - 1.2 mg/dL [facility] DE[facility]MENT OF PATHOLOGY AND GENOMIC MEDICINE Specimen Plasma specimen Performing Organization Address City/State/Zipcode Phone Number [place] [address] [place] [address] PATHOLOGY AND GENOMIC MEDICINE * XR Abdomen [...] 3. Mild colonic fecal retention is present. [facility]-[id number] Procedure Note Interface, Radiology Results Incoming - [...] 3. Mild colonic fecal retention is present. [facility]-[id number] Performing Organization Address City/State/Zipcode Phone Number [facility] [address] [place] [address] * Occult blood, stool (02/01/2018 7:30 PM CDT) Occult blood, stool Negative for occult blood. [facility] DEPARTMENT OF Comment: PATHOLOGY AND Specimen Information GENOMIC MEDICINE Specimen Source: Stool Specimen Site: Nonpreserved Specimen Stool - Nonpreserved Performing Organization Address City/[facility] Centercode Phone Number [facility] DEPARTMENT OF [address] [place] [address] PATHOLOGY AND GENOMIC MEDICINE * FL Esophagram Complete (02/01/2018 10:40 AM CDT) Narrative Performed At EXAMINATION:[place] ESOPHAGRAM COMPLETE RADIBANNER CLINICAL HISTORY:DIFFICULTY SWALLOWING COMPARISON:None. Fluoroscopy time: 0.6 FINDINGS: No obstructing or constricting lesions. Intermittent tertiary waves were noted with mild esophageal dysmotility. Intraesophageal reflux was present. The EG junction is patent. No obstructing or constricting lesions. No hiatal hernia or gastroesophageal reflux. IMPRESSION: 1.No obstructing or constricting lesions. Patent EG junction. Mild esophageal dysmotility and intraesophageal reflux. No gastroesophageal reflux. [facility]-[id number] Procedure Note Interface, Radiology Results Incoming - [...] dysmotility and intraesophageal reflux. No gastroesophageal reflux. [facility]-[id number] Performing Organization Address City/[facility] Centercode Phone Number [facility] [address] [place] [address] * Hemoglobin & hematocrit (01/31/2018 7:48 AM CDT) HGB 8.0 (L) 12.0 - 16.0 g/dL [facility] DEPARTMENT OF PATHOLOGY AND GENOMIC MEDICINE HCT 25.7 (L) 37.0 - 47.0 % [facility] DEPARTMENT OF PATHOLOGY AND GENOMIC MEDICINE Specimen Blood Performing Organization Address City/[facility]ode Phone Number [facility] DEPARTMENT [address] [address] PATHOLOGY AND GENOMIC MEDICINE * Potassium level (01/31/2018 7:01 AM CDT) Potassium 3.4 (L) 3.5 - 5.0 mEq/L [facility] DEPARTMENT OF PATHOLOGY AND GENOMIC MEDICINE Specimen Plasma specimen Performing Organization Address [facility]ercori Phone Number [facility] [place] [address] PATHOLOGY AND GENOMIC MEDICINE * US Renal (01/30/2018 2:00 PM CDT) Only the most recent of 2 results within the time period is included. Narrative Performed At EXAMINATION:US RENAL RADIBANNER CLINICAL HISTORY:HYDRONEPHROSIS COMPARISON:None. FINDINGS: The kidneys are generally normal in size and echogenicity. There is no evidence of solid renal mass, stone or hydronephrosis. The right kidney .4 x 4.5 x 5.1 cm.. The left kidney giozqkyt62.1 x 5.2 x 6.2 cm.There is a 2.4 cm cyst.. The urinary bladder is nondistended at time of exam.. IMPRESSION: Normal renal ultrasound examination. [facility]-[id number] Procedure Note Interface, Radiology Results Incoming - [...] of exam.. IMPRESSION: Normal renal ultrasound examination. [facility]-[id number] Performing Organization Address City/[facility]/Zipcode Phone Number [facility] [address] [place] [address] * YOVANNY test (01/30/2018 7:45 AM CDT) YOVANNY test Negative after 24 hours. [facility] DEPARTMENT OF Comment: PATHOLOGY AND Specimen Information GENOMIC MEDICINE Specimen Source: Biopsy Specimen Site: gastric tissue Specimen Biopsy Performing Organization Address [facility] Centercode Phone Number [facility] [address] PATHOLOGY AND GENOMIC MEDICINE * Type and screen (01/30/2018 4:30 AM CDT) Only the most recent of 3 results within the time period is included. ABO grouping O [facility] DEPARTMENT OF PATHOLOGY AND GENOMIC MEDICINE Rh type POS [facility] DEPARTMENT OF PATHOLOGY AND GENOMIC MEDICINE Antibody screen (gel) NEG [facility] DEPARTMENT OF PATHOLOGY AND GENOMIC MEDICINE Specimen Blood Performing Organization Address [facility] [place] [address] PATHOLOGY AND GENOMIC MEDICINE * T4, free (01/30/2018 4:30 AM CDT) T4, free 0.8 (L) 0.9 - 1.7 ng/dL [facility] DEPARTMENT OF PATHOLOGY AND GENOMIC MEDICINE Specimen Plasma specimen Performing Organization Address [facility] [place] [address] PATHOLOGY AND GENOMIC MEDICINE * Phosphorus level (01/30/2018 4:30 AM CDT) Only the most recent of 5 results within the time period is included. Phosphorus 3.8 2.4 - 4.5 mg/dL [facility] DEPARTMENT OF PATHOLOGY AND GENOMIC MEDICINE Specimen Plasma specimen Performing Organization Address [facility] Cent[facility]ode Phone Number [facility] [place] [address] PATHOLOGY AND GENOMIC MEDICINE * Immunoglobulin E (01/30/2018 4:30 AM CDT) IgE 6.8 0.0 - 100.0 IU/mL [facility] DEPARTMENT OF PATHOLOGY AND GENOMIC MEDICINE Specimen Plasma specimen Performing Organization Address [facility]/[place] [address] PATHOLOGY AND GENOMIC MEDICINE * NM Hepatobiliary (HIDA Scan) (01/27/2018 12:13 PM CDT) Only the most recent of 3 results within the time period is included. Narrative Performed At Procedure:NM HEPATOBILIARY (HIDA SCAN) [facility] Clinical History:s p lap samantha with cystic duct stump leak and stent placement. Re-evaluate for resolution of leak Technique: The patient was injected with 4 mCi of [id number] intravenously, followed by dynamic imaging of the [...] Incoming - 01/27/2018 12:44 PM CDT Procedure: [place] HEPATOBILIARY (HIDA SCAN) Clinical History: s p lap samantha with cystic duct stump leak and stent placement. Re-evaluate for resolution of leak Technique: The patient was injected with 4 mCi of [id number] intravenously, followed by dynamic imaging of the [...] of the pronounced leak seen on 01-16-2018. [id number] Performing Organization Address City/State/Zipcode Phone Number [facility] [address] [place] [address] * Lactic acid level, SEPSIS - Now and repeat 2x every 3 hours (01/27/2018 7:03 AM CDT) Only the most recent of 2 results within the time period is included. Lactic acid 0.8 0.5 - 2.2 mmol/L [facility] DEPARTMENT OF PATHOLOGY AND GENOMIC MEDICINE Specimen Blood Performing Organization Address City/State/Zipcode Phone Number [facility] DEPARTMENT OF [address] [place] [address] PATHOLOGY AND GENOMIC MEDICINE * US Gallbladder [...] further delineating position of the biliary stent [id number] Procedure Note Interface, Radiology Results Incoming - [...] further delineating position of the biliary stent [id number] Performing Organization Address City/State/Zipcode Phone Number [facility] [address] [place] [address] * Amylase level (01/20/2018 7:54 AM CDT) Only the most recent of 3 results within the time period is included. Amylase 19 (L) 28 - 100 U/L [facility] DEPARTMENT OF PATHOLOGY AND GENOMIC MEDICINE Specimen Plasma specimen Performing Organization Address [facility] [place] [address] PATHOLOGY AND GENOMIC MEDICINE * Hepatic function panel (01/20/2018 7:54 AM CDT) Only the most recent of 10 results within the time period is included. Albumin 2.9 (L) 3.5 - 5.0 g/dL [facility] DEPARTMENT OF PATHOLOGY AND GENOMIC MEDICINE Total bilirubin 0.3 0.2 - 1.2 mg/dL [facility] DEPARTMENT OF PATHOLOGY AND GENOMIC MEDICINE Bilirubin direct <0.2 0.0 - 0.4 mg/dL [facility] DEPARTMENT OF PATHOLOGY AND GENOMIC MEDICINE Alkaline phosphatase 57 0 - 104 U/L [facility] DEPARTMENT OF PATHOLOGY AND GENOMIC MEDICINE Protein 5.7 (L) 6.3 - 8.3 g/dL [facility] DEPARTMENT OF PATHOLOGY AND GENOMIC MEDICINE ALT 17 5 - 50 U/L [facility] DEPARTMENT OF PATHOLOGY AND GENOMIC MEDICINE AST 28 10 - 35 U/L [facility] DEPARTMENT OF PATHOLOGY AND GENOMIC MEDICINE Specimen Plasma specimen Performing Organization Address [facility] [place] [address] PATHOLOGY AND GENOMIC [facility] * Ionized calcium (01/17/2018 7:18 AM CDT) Only the most recent of 2 results within the time period is included. pH 7.39 [facility] DEPARTMENT OF PATHOLOGY AND GENOMIC MEDICINE Ionized calcium 1.16 1.11 - 1.32 mmol/L [facility] PATHOLOGY AND GENOMIC MEDICINE Specimen Plasma specimen Performing Organization Address [facility] [place] [address] PATHOLOGY AND GENOMIC MEDICINE * XR Abdomen [...] pyelograms performed on 01/16/2018 at 1144 hours. [facility]-[id number] Procedure Note Hm Interface, Radiology Results Incoming [...] pyelograms performed on 01/16/2018 at 1144 hours. [facility]-[id number] Performing Organization Address City/State/Zipcode Phone Number [facility] [address] [place] [address] * FL Pyelogram Retrograde (01/16/2018 12:10 PM CDT) Narrative Performed At EXAMINATION:[place] PYELOGRAM RETROGRADE RADIBANNER CLINICAL HISTORY:Retrograde pyelograms COMPARISON:None. TECHNIQUE: C-arm fluoroscopy [...] of the upper urinary tracts as visualized. [id number] Procedure Note Interface, Radiology Results Incoming - [...] of the upper urinary tracts as visualized. [id number] Performing Organization Address City/State/Zipcode Phone Number [facility] [address] [place] [address] * [place] Cholangiogram Intraoperative (01/13/2018 1:31 PM CDT) Narrative Performed At EXAMINATION:[place] CHOLANGIOGRAM INTRAOPERATIVE RADIBANNER CLINICAL HISTORY:Intraoperative COMPARISON:None. TECHNIQUE: Intraoperative cholangiogram was performed. No radiologist present. Spot radiographs were made available for evaluation. FLUOROSCOPIC TIME:23.6 seconds, 3 images IMPRESSION: 1.See procedure report for more complete details. 2.2 views submitted show well opacified common duct and proximal intrahepatic ducts, and no filling defects. Contrast also noted within the duodenum. [facility]-[id number] Procedure Note Interface, Radiology Results Incoming - [...] defects. Contrast also noted within the duodenum. [facility]-[id number] Performing Organization Address City/State/Zipcode Phone Number [facility] [address] [place] [address] * US Pelvic Transvaginal (01/06/2018 2:58 PM CDT) Narrative Performed At EXAMINATION:US PELVIC TRANSVAGINAL [facility] CLINICAL HISTORY:Pelvic Pain COMPARISON:None. TECHNIQUE:Transabdominal and endovaginal [...] Mildly prominent endometrial stripe; see discussion above. [facility]-[id number] Procedure Note [facility], Radiology Results Incoming - 01/06/2018 3:25 PM [...] Mildly prominent endometrial stripe; see discussion above. [facility]-[id number] Performing Organization Address City/State/Zipcode Phone Number [facility] [address] [place] [address] * US Pelvic Transabdominal (01/06/2018 2:58 PM CDT) Narrative Performed At EXAMINATION:US PELVIC TRANSABDOMINAL [facility] CLINICAL HISTORY:Pelvic Pain COMPARISON:None. TECHNIQUE:Transabdominal and endovaginal [...] Mildly prominent endometrial stripe; see discussion above. [facility]-[id number] Procedure Note Interface, Radiology Results [facility] - 01/06/2018 3:21 PM CDT EXAMINATION: [...] Mildly prominent endometrial stripe; see discussion above. [facility]-[id number] Performing Organization Address [facility]/Zipcode Phone Number [facility] [address] [place] [address] * CT Head Wo Contrast (01/04/2018 11:08 [...] calvarium to be intact. IMPRESSION: Unremarkable examination. [id number] Procedure Note Interface, Radiology Results Incoming - [...] calvarium to be intact. IMPRESSION: Unremarkable examination. [facility]-[id number] Performing Organization Address City/[facility]/Zipcode Phone Number [facility] [address] [place] [address] * Cancer antigen 19-9 (01/02/2018 11:45 AM CDT) CA 19-9 20 0 - 35 U/mL [facility] DEPARTMENT OF Comment: PATHOLOGY AND The [employer] 8000 CA19-9 GENOMIC MEDICINE immunoassay was used. Results obtained with different assay methods or kits should not be used interchangeably and may be different. Specimen Plasma specimen Performing Organization Address City/State/Zipcode Phone Number [facility] DEPARTMENT OF [address] [place] [address] PATHOLOGY AND GENOMIC MEDICINE * MRI CHOLANGIOGRAM [...] ERCP. 2.Cholelithiasis without evidence of acute cholecystitis. [facility]-[id number] Procedure Note Interface, Radiology Results - 12/31/2017 [...] 2. Cholelithiasis without evidence of acute cholecystitis. [facility]-[id number] Performing Organization Address City/State/Zipcode Phone Number [facility] [address] [place] [address] * ECG ED Preliminary Interpretation - NOT AN ORDER (12/31/2017 2:18 PM CDT) Narrative Performed At Kadeem Kincaid MD 12/31/20176:20 PM ECG ED Preliminary Interpretation - Not an Order Performed by: KADEEM KINCAID Authorized by: KADEEM KINCAID ECG reviewed by ED Physician in the absence of a automobile mechanic supervisor: yes Previous ECG: Previous ECG:Unavailable Interpretation: Interpretation: abnormal Rate: ECG rate:80 ECG rate assessment: normal Rhythm: Rhythm: sinus rhythm Ectopy: Ectopy: none QRS: QRS axis:Left Conduction: Conduction: normal ST segments: ST segments:Normal T waves: T waves: flattening Flattening:AVL * ECG 12 lead (12/31/2017 1:52 PM CDT) Ventricular rate 80 [facility] Atrial rate 80 [facility] [place] interval 216 [facility] QRSD interval 92 [...] available- Performing Organization Address City/State/Zipcode Phone Number [facility] MUSE [address] [place] [address] after 08/01/2017 Insurance Payer Benefit Subscriber ID Type Phone Address Plan / Group [facility] MEDICARE AARP xxxxxxxxx O MEDICARE COMPLETE MCR Advance Directives Patient has advance care planning documents on file. For more information, renita e contact: Jose Siddiqi [address] [place] [address]
[2018-08-02 09:50] VITALS: BP 114/55
--- NOTE | 2018-08-06 08:22 | Operative Report ---
DATE OF PROCEDURE: August 02, 2018 PREOPERATIVE DIAGNOSIS: Chronic cystitis. POSTOPERATIVE DIAGNOSIS: Chronic cystitis. OPERATIVE PROCEDURES PERFORMED 1. Cystoscopy. 2. Bladder biopsy. ANESTHESIA: General anesthesia. ESTIMATED BLOOD LOSS: Minimal. INDICATIONS: Ms. Bindu Nj is a 78-year-old woman with recurrent urinary tract infections and persistent flank pain and a presumed diagnosis of interstitial cystitis. She now presents for definitive management to rule out other potential causes for her bladder pain. PROCEDURE IN DETAIL: Patient was brought to the operating room, placed in supine position, and after administration of general anesthesia, was prepped and draped in usual sterile fashion. She had a Aviles catheter that was previously placed. This was removed. Cystourethroscopy was performed using 21-Romanian cystoscope. The anterior and posterior urethra were noted to be normal. The bladder was entered without difficulty. Upon entrance into the bladder, there was some mucosal edema noted from the Aviles balloon. On the posterior wall, there were some erythematous patches, which did not appear to be from the catheter. These sites were biopsied using the alligator forceps and the biopsy sites were fulgurated using Bugbee electrode. Three separate biopsies were obtained from suspicious areas. The bladder's overall capacity was noted to be reasonable. There was some evidence of bleeding noted with filling of the bladder to capacity. There were no focal glomerulations or Hunner's ulcers seen. Once adequate hemostasis was obtained, the bladder was then drained in its entirety and the patient was returned to supine position. Anesthesia was reversed. She was transferred to bed and taken to the postanesthesia care unit in good condition. Of note, the needle and instrument counts were correct at the conclusion of the case. Job#: [id number] ERICA TEE
== END | disposition home or self-care (01) ==
LOC: OR 05:24
PROVIDERS: ATTEND Urology
DX: N30.20 Other chronic cystitis without hematuria (principal); E03.9 Hypothyroidism, unspecified; I10 Essential (primary) hypertension; F32.9 Major depressive disorder, single episode, unspecified; F41.9 Anxiety disorder, unspecified; Z88.6 Allergy status to analgesic agent; Z88.1 Allergy status to other antibiotic agents; Z01.812 Encounter for preprocedural laboratory examination; Z01.818 Encounter for other preprocedural examination; Z68.30 Body mass index [BMI] 30.0-30.9, adult
CPT/HCPCS: 36415; 52204; 71046; 80048; 85025; 88305; 88313; J0696; J1100; J2001; J2405; J2704

== ENCOUNTER 2018-09-13 20:20 | Emergency (ER) | payer MEDICARE ==
[~2018-09-13] VITALS: Ht 152.4 cm; Wt 73.0 kg
[~2018-09-13 20:20] MED LIST changes: -CEFTRIAXONE SOD 1 GM/NS 50 ML 50 ML IV ONE; -DEXAMETHASONE SOD PHOS INJ 4 MG/ML VIAL ONE; -FENTANYL CITRATE/PF 100MCG/2 ML INJ ONE; -HYDROMORPHONE 2MG/ML 2 MG/ML ML ONE; -LIDOCAINE HCL 2% LOCAL INJ 5 ML SDV VIAL INJ ONE; -ONDANSETRON HCL INJ 2 MG/ML VIAL ONE; -PROPOFOL IV EMULSION 10 MG/ML 20 ML VIAL ONE; -SEVOFLURANE INHAL SOLN 250 ML PEN BTL ONE
--- OUTSIDE RECORDS SUMMARY | 2018-09-13 20:23 | XMS REPORT | Clinical Summary ---
Author Author [facility] [employer] [facility] [employer] Address Unknown Phone Unavailable Care Team Providers Care Vp Compliance Name Role Phone Silvano Ryan MD PCP [...] Overview: Added automatically from request for surgery [id number] Postoperative pain 01/27/2018 Intractable epigastric abdominal pain 01/12/2018 Epigastric pain 01/12/2018 Overview: Added automatically from request for surgery [id number] Injury of bile duct 01/12/2018 Overview: Added automatically from request for surgery [id number] Abdominal pain 01/03/2018 Intractable abdominal pain 12/31/2017 [...] pain; Right upper quadrant abdominal pain 01/12/2018 [facility] Internal Medicine - Encounter 01/23/2018 [...] abdominal pain (Primary Dx); RUQ pain 12/31/2017 [facility] Internal Medicine - Encounter 01/07/2018 Silvano Ryan MD Adnexal tenderness, right (Primary Dx); Stomach ache 12/27/2017 Transcribe Access Orders after 09/12/2017 Immunizations Name Dates Previously Given Next Due [...] 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 Bosniak category 1 left renal cyst. [facility][id number] Procedure Note Hm Interface, Radiology Results Incoming [...] obstruction. Bosniak category 1 left renal cyst. [id number] Performing Organization Address City/State/Zipcode Phone Number [facility] [address] [place] [address] * Estimated GFR (05/31/2018 6:03 PM CDT) Estimated GFR 54 (A) mL/min/1.73 m2 [facility] DEPARTMENT OF Comment: PATHOLOGY AND CatergoryUnitsInte GENOMIC MEDICINE rpretation G1 >=90 Normal or high G2 60-89Mildly decreased D6h33-48 Mildly to moderately decreased C7t18-26 Moderately to severely decreased G4 15-29Severely decreased G5 <15Kidney failure The eGFR was calculated using the Chronic Kidney Disease Epidemiology Collaboration (CKD-EPI) equation. Interpretation is based on recommendations of the National Kidney Foundation-Kidney Disease Outcomes Quality Initiative (NKF-KDOQI) published in 2014. Specimen Blood Performing Organization Address City/State/Zipcode Phone Number [facility] DEPART[facility] OF [address] [place] [address] PATHOLOGY AND GENOMIC MEDICINE * POC creatinine (05/31/2018 6:03 PM CDT) POC creatinine 1.0 (H) 0.5 - 0.9 mg/dl [facility] DEPARTMENT OF Comment: PATHOLOGY AND Meter ID: [id number] GENOMIC MEDICINE Cafe Server: Nataliegillian [place] Specimen Blood Performing Organization Address City/[facility] Phone Number [address] [place] [address] PATHOLOGY AND GENOMIC MEDICINE * Mammo Breast Screen Tomosynthesis Bilateral (05/12/2018 8:50 AM CDT) Narrative Performed At PROCEDURE:MAMMO BREAST SCREEN TOMOSYNTHESIS VOVHXSARK85/13/2018 8:12 AM [facility] This patient's mammogram was interpreted with the [...] mammography. This facility is accredited by [employer] for Mammography. A negative x-ray report should not delay biopsy if a dominant or clinically suspicious mass is present. Not all cancers are identified by x-ray. [id number] The results of this exam have been sent to the patient. Performing Organization Address City/State/Zipcode Phone Number [facility] [address] [place] [address] * Estimated GFR (02/26/2018 6:20 AM CDT) Only the most recent of 29 results within the time period is included. GFR Non Af Amer 54 (A) mL/min/1.73 m2 [facility] OF PATHOLOGY AND GENOMIC MEDICINE GFR Af Amer 65 mL/min/1.73 m2 [facility] DEPARTMENT OF Comment: PATHOLOGY AND Chronic kidney [...] Americans. Specimen Plasma specimen Performing Organization Address City/[facility]/Zipcode Phone Number [address] [place] [address] PATHOLOGY AND [employer] [facility] * Manual differential (02/26/2018 6:20 AM CDT) Only the most recent of 3 results within the time period is included. Manual differential PERFORMED [facility] DEPARTMENT OF PATHOLOGY AND GENOMIC MEDICINE Neutrophils 45.0 36.0 - 66.0 % [facility] DE[facility]MENT PATHOLOGY AND GENOMIC MEDICINE Lymphocytes 38.0 24.0 - 44.0 % [facility] PATHOLOGY AND GENOMIC MEDICINE Monocytes 9.0 (H) 0.0 - 6.0 % [facility] DE[facility] OF PATHOLOGY AND GENOMIC MEDICINE Eosinophils 2.0 0.0 - 6.0 % [facility] DEPARTMENT PATHOLOGY AND GENOMIC MEDICINE Basophils 0.0 0.0 - 1.2 % [facility] DE[facility]MENT OF PATHOLOGY AND GENOMIC MEDICINE Metamyelocytes 0 0 - 1 % [facility] OF PATHOLOGY AND GENOMIC MEDICINE Promyelocytes 0 0 - 1 % [facility] PATHOLOGY AND GENOMIC MEDICINE Reactive lymphocytes 6.0 [facility] DE[facility] OF PATHOLOGY AND GENOMIC MEDICINE Platelet slide review Quintin adequate [facility] OF PATHOLOGY AND GENOMIC MEDICINE Anisocytosis Slight [facility] DE[facility]MENT OF PATHOLOGY AND GENOMIC MEDICINE Polychromasia Slight [facility] PATHOLOGY AND GENOMIC MEDICINE Performing Organization Address City/[facility]/Zipcode Phone Number [address] [place] [id number] PATHOLOGY AND [employer] [facility] * CBC with platelet and differential (02/26/2018 6:20 AM CDT) Only the most recent of 28 results within the time period is included. WBC 3.1 (L) 4.2 - 11.0 k/uL [facility] DE[facility] OF PATHOLOGY AND GENOMIC MEDICINE RBC 3.40 (L) 4.04 - 5.86 m/uL [facility] DE[facility]MENT OF PATHOLOGY AND GENOMIC MEDICINE HGB 9.3 (L) 11.5 - 15.3 g/dL [facility] DE[facility]MENT OF PATHOLOGY AND GENOMIC MEDICINE HCT 29.8 (L) 34.0 - 45.0 % [facility] DE[facility]MENT OF PATHOLOGY AND GENOMIC MEDICINE MCV 87.6 80.0 - 98.0 fL [facility] DE[facility] OF PATHOLOGY AND GENOMIC MEDICINE MCH 27.4 27.0 - 34.0 pg [facility] DE[facility]MENT OF PATHOLOGY AND GENOMIC MEDICINE MCHC 31.2 (L) 31.5 - 36.5 g/dL [facility] DE[facility]MENT OF PATHOLOGY AND GENOMIC MEDICINE RDW - SD 42.5 37.0 - 51.0 fL [facility] DE[facility]MENT OF PATHOLOGY AND GENOMIC MEDICINE MPV 10.7 (H) 7.4 - 10.4 fL [facility] DE[facility]MENT OF PATHOLOGY AND GENOMIC MEDICINE Platelet count 180 150 - 400 k/uL [facility] DE[facility]MENT OF PATHOLOGY AND GENOMIC MEDICINE Nucleated RBC 0.00 /100 WBC [facility] DE[facility]MENT OF PATHOLOGY AND GENOMIC MEDICINE Neutrophils 45.0 36.0 - 66.0 % [facility] DE[facility]MENT OF PATHOLOGY AND GENOMIC MEDICINE Lymphocytes 38.0 24.0 - 44.0 % [facility] DE[facility]MENT OF PATHOLOGY AND GENOMIC MEDICINE Monocytes 9.0 (H) 0.0 - 6.0 % [facility] DE[facility]MENT OF PATHOLOGY AND GENOMIC MEDICINE Eosinophils 2.0 0.0 - 6.0 % [facility] DE[facility]MENT OF PATHOLOGY AND GENOMIC MEDICINE Basophils 0.0 0.0 - 1.2 % [facility] DE[facility]MENT OF PATHOLOGY AND GENOMIC MEDICINE Specimen Blood Performing Organization Address City/State/Zipcode Phone Number [facility] [address] [place] [address] PATHOLOGY AND GENOMIC MEDICINE * Basic metabolic panel (02/26/2018 6:20 AM CDT) Only the most recent of 21 results within the time period is included. Sodium 139 135 - 150 mEq/L [facility] DEPARTMENT OF PATHOLOGY AND GENOMIC MEDICINE Potassium 3.7 3.5 - 5.0 mEq/L [facility] DEPARTMENT OF PATHOLOGY AND GENOMIC MEDICINE Chloride 102 98 - 112 mEq/L [facility] DE[facility]MENT OF PATHOLOGY AND GENOMIC MEDICINE CO2 27 24 - 31 mmol/L [facility] DE[facility]MENT OF PATHOLOGY AND GENOMIC MEDICINE Anion gap 10@ANIO 7 - 15 mEq/L [facility] DE[facility]MENT OF PATHOLOGY AND GENOMIC MEDICINE BUN 9 7 - 18 mg/dL [facility] DE[facility]MENT OF PATHOLOGY AND GENOMIC MEDICINE Creatinine 1.00 (H) 0.50 - 0.90 mg/dL [facility] DE[facility]MENT OF PATHOLOGY AND GENOMIC MEDICINE Glucose 82 65 - 100 mg/dL [facility] DE[facility]MENT OF PATHOLOGY AND GENOMIC MEDICINE Calcium 9.2 8.8 - 10.2 mg/dL [facility] DE[facility]MENT OF PATHOLOGY AND GENOMIC MEDICINE Specimen Plasma specimen Performing Organization Address [facility] [place] [address] PATHOLOGY AND GENOMIC MEDICINE * Magnesium level (02/23/2018 5:48 AM CDT) Only the most recent of 6 results within the time period is included. Magnesium 1.70 1.60 - 2.40 mg/dL [facility] PATHOLOGY AND GENOMIC MEDICINE Specimen Plasma specimen Performing Organization Address [facility] [place] [address] PATHOLOGY AND [facility] * Thyroid stimulating hormone (02/22/2018 6:00 AM CDT) Only the most recent of 2 results within the time period is included. TSH 1.74 0.27 - 4.20 uIU/mL [facility] PATHOLOGY AND [facility] MEDICINE Specimen Plasma specimen Performing Organization Address [facility] [place] [address] PATHOLOGY AND [facility] MEDICINE * POC glucose (02/21/2018 6:03 PM CDT) Only the most recent of 7 results within the time period is included. POC glucose 98 65 - 100 mg/dL [facility] DE[facility] OF Comment: PATHOLOGY AND Meter ID: [id number] GENOMIC MEDICINE Cafe Server: Alfred Rojas Performing Organization Address [facility] [place] [address] PATHOLOGY AND GENOMIC MEDICINE * [place] ERCP [...] are identified. Removal of a biliary stent. [id number] . Procedure Note [facility], Radiology Results Incoming - 02/21/2018 11:05 AM [...] are identified. Removal of a biliary stent. [id number] . Performing Organization Address City/State/Zipcode Phone Number [facility] [address] [place] [address] * IR Endovascular Consult (02/20/2018 2:51 PM [...] drainage catheter located in the gallbladder fossa. [facility]-[id number] Procedure Note Interface, Radiology Results Incoming - [...] drainage catheter located in the gallbladder fossa. [facility]-[id number] Performing Organization Address City/State/Zipcode Phone Number [facility] [address] [place] [address] * CT Abdomen Wo Contrast (02/19/2018 9:06 PM CDT) Narrative Performed At EXAMINATION:CT ABDOMEN WO CONTRAST [facility] CLINICAL HISTORY:s p drainage abscess 02-16-18 COMPARISON:02/07/2018 [...] placement with interval resolution of gallbladder abscess. [facility]-[id number] Procedure Note Hm Interface, Radiology Results Incoming [...] placement with interval resolution of gallbladder abscess. [facility]-[id number] Performing Organization Address City/State/Zipcode Phone Number [facility] [address] [place] [address] * Urinalysis, automated with microscopy (02/17/2018 5:16 AM CDT) Only the most recent of 2 results within the time period is included. Color, UA Yellow [facility] DE[facility] OF PATHOLOGY AND GENOMIC MEDICINE Appearance, UA Cloudy [facility] DE[facility]MENT OF PATHOLOGY AND GENOMIC MEDICINE Specific gravity, UA 1.016 1.001 - 1.035 [facility] DEPARTMENT OF PATHOLOGY AND GENOMIC MEDICINE pH, UA 5.0 5.0 - 8.5 [facility] DE[facility]MENT OF PATHOLOGY AND GENOMIC MEDICINE Protein, UA Negative Negative [facility] DE[facility]MENT OF PATHOLOGY AND GENOMIC MEDICINE Glucose, UA Negative Negative [facility] DE[facility]MENT OF PATHOLOGY AND GENOMIC MEDICINE Ketones, UA Negative Negative [facility] DE[facility]MENT OF PATHOLOGY AND GENOMIC MEDICINE Bilirubin, UA Negative Negative [facility] DE[facility]MENT OF PATHOLOGY AND GENOMIC MEDICINE Blood, UA Moderate (A) Negative [facility] DE[facility]MENT OF PATHOLOGY AND GENOMIC MEDICINE Nitrite, UA Negative Negative [facility] DEPARTMENT OF PATHOLOGY AND GENOMIC MEDICINE Urobilinogen, UA Negative <2.0 [facility] DEPARTMENT OF PATHOLOGY AND GENOMIC MEDICINE Leukocyte esterase, UA Large (A) Negative [facility] DEPARTMENT OF PATHOLOGY AND GENOMIC MEDICINE Epithelial cells, UA Moderate /HPF [facility] DEPARTMENT OF PATHOLOGY AND GENOMIC MEDICINE Round epithelial cells, Many 0 - 1 /HPF [facility] DE[facility]MENT OF UA PATHOLOGY AND GENOMIC MEDICINE WBC, UA >200 (H) 0 - 5 /HPF [facility] DE[facility]MENT OF PATHOLOGY AND GENOMIC MEDICINE RBC, UA 22 (H) 0 - 5 /HPF [facility] DE[facility]MENT OF PATHOLOGY AND GENOMIC MEDICINE Bacteria, UA Trace None seen [facility] DE[facility]MENT OF PATHOLOGY AND GENOMIC MEDICINE Amorphous crystals Few [facility] DE[facility]MENT OF PATHOLOGY AND GENOMIC MEDICINE WBC clumps, UA Many (A) [facility] DE[facility]MENT OF PATHOLOGY AND GENOMIC MEDICINE Yeast, UA None seen [facility] DE[facility]MENT OF PATHOLOGY AND GENOMIC MEDICINE Yeast with pseudohyphae, None seen [facility] DE[facility]MENT OF UA PATHOLOGY AND GENOMIC MEDICINE Specimen Urine Performing Organization Address City/State/Zipcode Phone Number [facility] DEPARTMENT OF [address] [place] [address] PATHOLOGY AND GENOMIC MEDICINE * Gram stain (02/17/2018 5:16 AM CDT) Only the most recent of 3 results within the time period is included. Gram stain result Few WBC's [facility] DEPARTMENT OF Rare Gram negative rods PATHOLOGY AND Comment: GENOMIC MEDICINE Specimen Information Specimen Source: Urine Specimen Site: Clean catch Specimen Urine Performing Organization Address City/State/Zipcode Phone Number [facility] DEPARTMENT OF [address] [place] [address] PATHOLOGY AND GENOMIC MEDICINE * Urine culture (02/17/2018 5:16 AM CDT) Only the most recent of 6 results within the time period is included. Urine culture isolate Klebsiella pneumoniae [facility] DEPARTMENT OF colony count undetermined, PATHOLOGY AND probably due to inhibiting GENOMIC MEDICINE substance. The performance characteristics of this assay on this isolate were validated by the Microbiology Laboratory at [facility].This source has not been approved by the [...] ARGENIS <=0.5 mcg/mL: Susceptible Klebsiella pneumoniae Nitrofurantoin ARGEINS 32 mcg/mL: Susceptible Klebsiella pneumoniae Cefoxitin ARGENIS [...] pneumoniae Performing Organization Address City/State/Zipcode Phone Number [facility] DEPARTMENT OF [address] [place] [address] PATHOLOGY AND GENOMIC MEDICINE * XR Chest 2 Vw (02/16/2018 7:05 PM CDT) Narrative Performed At EXAMINATION:XR CHEST 2 VW [facility] CLINICAL HISTORY:fever COMPARISON:None. IMPRESSION: Atelectasis in the left lower lobe The right lung is clear The heart is nonenlarged Bony structures are within normal limits [facility]-[id number] Procedure Note Hm Interface, Radiology Results Incoming - 02/16/2018 7:14 PM CDT EXAMINATION: XR CHEST 2 VW CLINICAL HISTORY: fever COMPARISON: None. IMPRESSION: Atelectasis in the left lower lobe The right lung is clear The heart is nonenlarged Bony structures are within normal limits [facility]-[id number] Performing Organization Address City/State/Zipcode Phone Number [facility] [address] [place] [address] * CT Guided Abscess Drain (02/16/2018 6:10 [...] fully monitored and given moderate sedation. Doctor-patient nujg-qh-smev time was 30 minutes.. The patient was [...] the Yueh needle was removed.. A 8.3 Libyan pigtail all-purpose drainage catheter was inserted over [...] good condition. IMPRESSION: There were no complications [id number] Procedure Note Hm Interface, Radiology Results Incoming [...] fully monitored and given moderate sedation. Doctor-patient bwij-hu-pfpl time was 30 minutes.. The patient was [...] the Yueh needle was removed.. A 8.3 Libyan pigtail all-purpose drainage catheter was inserted over [...] good condition. IMPRESSION: There were no complications [id number] Performing Organization Address City/State/Zipcode Phone Number [facility] [address] [place] [address] * Aerobic culture (02/16/2018 5:35 PM CDT) Aerobic culture isolate Klebsiella pneumoniae [facility] DEPARTMENT OF Occasional PATHOLOGY AND susceptibility to follow GENOMIC MEDICINE (A) Comment: Specimen Information Specimen Source: Abscess Specimen Site: abdominal abscess Aerobic culture isolate Enterococcus faecalis [facility] DEPARTMENT OF Occasional PATHOLOGY AND Enterococcus susceptible to GENOMIC MEDICINE high levels of Gentamicin. Susceptibility results indicate synergy with Penicillins and Vancomycin. This organism is Vancomycin Sensitive. (A) Aerobic culture isolate Alpha Strep, not pneumococcus [facility] DEPARTMENT OF Occasional PATHOLOGY AND identification to [...] mcg/mL: Susceptible Enterococcus faecalis Performing Organization Address [facility] Phone Number [facility] DEPARTMENT OF [address] [place] [address] PATHOLOGY AND GENOMIC MEDICINE * Anaerobic culture (02/16/2018 5:35 PM CDT) Anaerobic culture isolate Zachariahllaraceli mallory [facility] DEPARTMENT OF The performance PATHOLOGY AND characteristics of this assay GENOMIC MEDICINE on this isolate were validated by the Microbiology Laboratory at [facility].This source has not been approved by the U.S. Food and Drug Administration.The results are not intended to be used as the sole means for clinical diagnosis or patient management.The Microbiology Laboratory is authorized under the clinical Laboratory Improvement Amendments of 1988 (CLIA-88) to perform high complexity testing. (A) Comment: Specimen Information Specimen Source: Abscess Specimen Site: abdominal abscess Specimen Abscess Performing Organization Address [facility] Phone Number [facility] DEPARTMENT OF [address] [place] [address] PATHOLOGY AND GENOMIC MEDICINE * Partial thromboplastin time, activated (02/16/2018 2:34 PM CDT) Only the most recent of 5 results within the time period is included. PTT 46.4 (H) 23.0 - 36.0 sec [facility] DEPARTMENT OF Comment: PATHOLOGY AND PTT therapeutic range for [facility] unfractionated heparin is 61.0-112.0 seconds which corresponds to Anti-Xa 0.3-0.7 U/ml. Note:Change in Panic Value The PTT Panic Value is changing from 110 sec. to 100 sec. due to new instrumentation and reagents. Correlation studies have been performed to validate this result. Specimen Blood Performing Organization Address City/[facility] Phone Number [address] [place] [address] PATHOLOGY AND [facility] * Prothrombin time with INR (02/16/2018 2:34 PM CDT) Only the most recent of 5 results within the time period is included. Prothrombin time 14.5 12.0 - 15.0 sec [facility] DEPARTMENT OF PATHOLOGY AND [facility] INR 1.11 0.92 - 1.12 [facility] DEPARTMENT OF Comment: PATHOLOGY AND For patients on anticoagulant GENOMIC MEDICINE therapy, reference ranges below: Indication: INR Value Treatment of Venous Thrombosis, 2.0-3.0 pulmonary emboli, or prophylaxis of a venous thrombosis, or systemic emboli. High dose, high risk patients 3.0-4.5 with mechanical valves. NOTE:INR values over 3.0 are sometimes associated with gastrointestinal hemorrhage, especially values over 4.0. Specimen Blood Performing Organization Address [facility] Phone Number [address] AND [facility] * CTA Abdomen Pelvis W And Or [...] abscess at least partially involving the liver. [id number] Procedure Note Interface, Radiology Results - 02/11/2018 [...] abscess at least partially involving the liver. [facility]-[id number] Performing Organization Address City/State/Zipcode Phone Number [facility] [address] [place] [address] * Surgical pathology request (02/11/2018 9:31 AM CDT) Only the most recent of 3 results within the time period is included. [facility] DEPARTMENT OF PATHOLOGY AND GENOMIC MEDICINE Surgical pathology report See link below for PDF Lab [facility] DEPARTMENT OF Report PATHOLOGY AND GENOMIC MEDICINE Result status This is Final Report to [facility] DEPARTMENT OF [id number] PATHOLOGY AND GENOMIC MEDICINE Performing Organization Address City/State/Zipcode Phone Number [address] [address] PATHOLOGY AND GENOMIC MEDICINE * Urinalysis screen and microscopy, with reflex to culture (02/07/2018 7:40 PM CDT) Only the most recent of 5 results within the time period is included. Specimen site [employer] [facility] DEPARTMENT OF PATHOLOGY AND GENOMIC MEDICINE Color, UA Yellow [facility] DEPARTMENT OF PATHOLOGY AND GENOMIC MEDICINE Appearance, UA Clear [facility] DEPARTMENT OF PATHOLOGY AND GENOMIC MEDICINE Specific gravity, UA 1.015 1.001 - 1.035 [facility] DEPARTMENT OF PATHOLOGY AND GENOMIC MEDICINE pH, UA 6.0 5.0 - 8.5 [facility] DEPARTMENT OF PATHOLOGY AND GENOMIC MEDICINE Protein, UA Negative Negative [facility] DEPARTMENT OF PATHOLOGY AND GENOMIC MEDICINE Glucose, UA Negative Negative [facility] DEPARTMENT OF PATHOLOGY AND GENOMIC MEDICINE Ketones, UA Negative Negative [facility] DEPARTMENT OF PATHOLOGY AND GENOMIC MEDICINE Bilirubin, UA Negative Negative [facility] DEPARTMENT OF PATHOLOGY AND GENOMIC MEDICINE Blood, UA Negative Negative [facility] DE[facility]MENT OF PATHOLOGY AND GENOMIC MEDICINE Nitrite, UA Negative Negative [facility] DE[facility]MENT OF PATHOLOGY AND GENOMIC MEDICINE Urobilinogen, UA 2.0 (A) <2.0 [facility] DE[facility]MENT OF PATHOLOGY AND GENOMIC MEDICINE Leukocyte esterase, UA Negative Negative [facility] DEPARTMENT OF PATHOLOGY AND GENOMIC MEDICINE Epithelial cells, UA Few /HPF [facility] DE[facility]MENT OF PATHOLOGY AND GENOMIC MEDICINE WBC, UA 1 0 - 5 /HPF [facility] DE[facility]MENT OF PATHOLOGY AND GENOMIC MEDICINE RBC, UA <1 0 - 5 /HPF [facility] DE[facility]MENT OF PATHOLOGY AND GENOMIC MEDICINE Bacteria, UA None seen None seen [facility] DE[facility]MENT OF PATHOLOGY AND GENOMIC MEDICINE Yeast, UA None seen [facility] DE[facility]MENT OF PATHOLOGY AND GENOMIC MEDICINE Yeast with pseudohyphae, None seen [facility] DEPARTMENT OF PATHOLOGY AND GENOMIC MEDICINE Specimen Urine Performing Organization Address City/[facility] [place] [address] PATHOLOGY AND GENOMIC MEDICINE * Troponin (02/07/2018 4:33 PM CDT) Troponin <0.30 0.00 - 0.30 ng/mL [facility] DEPARTMENT OF Comment: PATHOLOGY AND 0.11 - 1.49 GENOMIC MEDICINE ng/mlMay indicate increased risk of acute coronary syndrome. >=1.5 ng/ml Consistent with acute myocardial infarction. The diagnostic value of a single normal or non-diagnostic result is questionable.Serial samples at 2-6 hour intervals are required to rule out acute myocardial injury. Specimen Plasma specimen Performing Organization Address [facility] [place] [address] PATHOLOGY AND [facility] MEDICINE * B natriuretic peptide (02/07/2018 4:33 PM CDT) BNP 195 (H) 0 - 100 pg/mL [facility] DEPARTMENT PATHOLOGY AND GENOMIC MEDICINE Specimen Blood Performing Organization Address City/[facility] [place] [address] PATHOLOGY AND GENOMIC MEDICINE * Lipase level (02/07/2018 4:33 PM CDT) Only the most recent of 8 results within the time period is included. Lipase 43 13 - 60 U/L [facility] DEPARTMENT OF PATHOLOGY AND GENOMIC MEDICINE Specimen Plasma specimen Performing Organization Address City/[facility] [place] [address] PATHOLOGY AND GENOMIC MEDICINE * Comprehensive metabolic panel (02/07/2018 4:33 PM CDT) Only the most recent of 8 results within the time period is included. Sodium 139 135 - 150 mEq/L [facility] DEPARTMENT OF PATHOLOGY AND GENOMIC MEDICINE Potassium 3.1 (L) 3.5 - 5.0 mEq/L [facility] DEPARTMENT OF PATHOLOGY AND GENOMIC MEDICINE Chloride 99 98 - 112 mEq/L [facility] DEPARTMENT OF PATHOLOGY AND GENOMIC MEDICINE CO2 25 24 - 31 mmol/L [facility] DEPARTMENT OF PATHOLOGY AND GENOMIC MEDICINE Anion gap 15@ANIO 7 - 15 mEq/L [facility] DEPARTMENT OF PATHOLOGY AND GENOMIC MEDICINE BUN 8 7 - 18 mg/dL [facility] DEPARTMENT OF PATHOLOGY AND GENOMIC MEDICINE Creatinine 0.90 0.50 - 0.90 mg/dL [facility] DEPARTMENT OF PATHOLOGY AND GENOMIC MEDICINE Glucose 107 (H) 65 - 100 mg/dL [facility] DEPARTMENT OF PATHOLOGY AND GENOMIC MEDICINE Calcium 9.1 8.8 - 10.2 mg/dL [facility] OF PATHOLOGY AND GENOMIC MEDICINE Protein 7.2 6.3 - 8.3 g/dL [facility] DEPARTMENT OF PATHOLOGY AND GENOMIC MEDICINE Albumin 3.1 (L) 3.5 - 5.0 g/dL [facility] DEPARTMENT OF PATHOLOGY AND GENOMIC MEDICINE A/G ratio 0.8 0.7 - 3.8 [facility] DEPARTMENT OF PATHOLOGY AND GENOMIC MEDICINE Alkaline phosphatase 86 0 - 104 U/L [facility] DEPARTMENT OF PATHOLOGY AND GENOMIC MEDICINE AST 50 (H) 10 - 35 U/L [facility] DEPARTMENT OF PATHOLOGY AND GENOMIC MEDICINE ALT 26 5 - 50 U/L [facility] DEPARTMENT OF PATHOLOGY AND GENOMIC MEDICINE Total bilirubin 0.4 0.2 - 1.2 mg/dL [facility] DEPARTMENT OF PATHOLOGY AND GENOMIC MEDICINE Specimen Plasma specimen Performing Organization Address City/State/Zipcode Phone Number [place] [address] [place] [address] PATHOLOGY AND GENOMIC MEDICINE * XR Abdomen [...] 3. Mild colonic fecal retention is present. [facility]-[id number] Procedure Note Interface, Radiology Results Incoming - [...] 3. Mild colonic fecal retention is present. [facility]-[id number] Performing Organization Address City/State/Zipcode Phone Number [facility] [address] [place] [address] * Occult blood, stool (02/01/2018 7:30 PM CDT) Occult blood, stool Negative for occult blood. [facility] DEPARTMENT OF Comment: PATHOLOGY AND Specimen Information GENOMIC MEDICINE Specimen Source: Stool Specimen Site: Nonpreserved Specimen Stool - Nonpreserved Performing Organization Address City/[facility] Phone Number [facility] DEPARTMENT OF [address] [place] [address] PATHOLOGY AND GENOMIC MEDICINE * FL Esophagram Complete (02/01/2018 10:40 AM CDT) Narrative Performed At EXAMINATION:[place] ESOPHAGRAM [facility]PLETE [facility] CLINICAL HISTORY:DIFFICULTY SWALLOWING COMPARISON:None. Fluoroscopy time: 0.6 FINDINGS: No obstructing or constricting lesions. Intermittent tertiary waves were noted with mild esophageal dysmotility. Intraesophageal reflux was present. The EG junction is patent. No obstructing or constricting lesions. No hiatal hernia or gastroesophageal reflux. IMPRESSION: 1.No obstructing or constricting lesions. Patent EG junction. Mild esophageal dysmotility and intraesophageal reflux. No gastroesophageal reflux. [facility]-[id number] Procedure Note Interface, Radiology Results Incoming - [...] dysmotility and intraesophageal reflux. No gastroesophageal reflux. [facility]-[id number] Performing Organization Address City/[facility] Phone Number [facility] [address] [place] [address] * Hemoglobin & hematocrit (01/31/2018 7:48 AM CDT) HGB 8.0 (L) 12.0 - 16.0 g/dL [facility] DEPARTMENT OF PATHOLOGY AND GENOMIC MEDICINE HCT 25.7 (L) 37.0 - 47.0 % [facility] DEPARTMENT OF PATHOLOGY AND GENOMIC MEDICINE Specimen Blood Performing Organization Address City/[facility] Phone Number [facility] DEPARTMENT [address] [address] PATHOLOGY AND GENOMIC MEDICINE * Potassium level (01/31/2018 7:01 AM CDT) Potassium 3.4 (L) 3.5 - 5.0 mEq/L [facility] DEPARTMENT OF PATHOLOGY AND GENOMIC MEDICINE Specimen Plasma specimen Performing Organization Address [facility] Phone Number [facility] [place] [address] PATHOLOGY AND GENOMIC MEDICINE * US Renal (01/30/2018 2:00 PM CDT) Only the most recent of 2 results within the time period is included. Narrative Performed At EXAMINATION:US RENAL [facility] CLINICAL HISTORY:HYDRONEPHROSIS COMPARISON:None. FINDINGS: The kidneys are generally normal in size and echogenicity. There is no evidence of solid renal mass, stone or hydronephrosis. The right kidney axorvtil82.4 x 4.5 x 5.1 cm.. The left kidney .1 x 5.2 x 6.2 cm.There is a 2.4 cm cyst.. The urinary bladder is nondistended at time of exam.. IMPRESSION: Normal renal ultrasound examination. [facility]-[id number] Procedure Note Interface, Radiology Results Incoming - [...] of exam.. IMPRESSION: Normal renal ultrasound examination. [facility]-[id number] Performing Organization Address City/[facility]/Zipcode Phone Number [facility] [address] [place] [address] * YOVANNY test (01/30/2018 7:45 AM CDT) YOVANNY test Negative after 24 hours. [facility] DEPARTMENT OF Comment: PATHOLOGY AND Specimen Information GENOMIC MEDICINE Specimen Source: Biopsy Specimen Site: gastric tissue Specimen Biopsy Performing Organization Address [facility] Phone Number [facility] [place] [address] PATHOLOGY AND GENOMIC MEDICINE * Type and screen (01/30/2018 4:30 AM CDT) Only the most recent of 3 results within the time period is included. ABO grouping O [facility] DEPARTMENT OF PATHOLOGY AND GENOMIC MEDICINE Rh type POS [facility] DEPARTMENT OF PATHOLOGY AND GENOMIC MEDICINE Antibody screen (gel) NEG [facility] DEPARTMENT OF PATHOLOGY AND GENOMIC MEDICINE Specimen Blood Performing Organization Address [facility] [place] [address] PATHOLOGY AND GENOMIC MEDICINE * T4, free (01/30/2018 4:30 AM CDT) T4, free 0.8 (L) 0.9 - 1.7 ng/dL [facility] DEPARTMENT OF PATHOLOGY AND GENOMIC MEDICINE Specimen Plasma specimen Performing Organization Address [facility] [place] [address] PATHOLOGY AND GENOMIC MEDICINE * Phosphorus level (01/30/2018 4:30 AM CDT) Only the most recent of 5 results within the time period is included. Phosphorus 3.8 2.4 - 4.5 mg/dL [facility] DEPARTMENT OF PATHOLOGY AND GENOMIC MEDICINE Specimen Plasma specimen Performing Organization Address [facility] Phone Number [facility] [place] [address] PATHOLOGY AND GENOMIC MEDICINE * Immunoglobulin E (01/30/2018 4:30 AM CDT) IgE 6.8 0.0 - 100.0 IU/mL [facility] DEPARTMENT OF PATHOLOGY AND GENOMIC MEDICINE Specimen Plasma specimen Performing Organization Address [facility]/[place] [address] PATHOLOGY AND GENOMIC MEDICINE * NM Hepatobiliary (HIDA Scan) (01/27/2018 12:13 PM CDT) Only the most recent of 3 results within the time period is included. Narrative Performed At Procedure:NM HEPATOBILIARY (HIDA SCAN) [facility] Clinical History:s p lap samantha with cystic duct stump leak and stent placement. Re-evaluate for resolution of leak Technique: The patient was injected with 4 mCi of [id number] intravenously, followed by dynamic imaging of the [...] Incoming - 01/27/2018 12:44 PM CDT Procedure: [place] HEPATOBILIARY (HIDA SCAN) Clinical History: s p lap samantha with cystic duct stump leak and stent placement. Re-evaluate for resolution of leak Technique: The patient was injected with 4 mCi of [id number] intravenously, followed by dynamic imaging of the [...] of the pronounced leak seen on 01-16-2018. [employer] Performing Organization Address City/State/Zipcode Phone Number [facility] [address] [place] [address] * Lactic acid level, SEPSIS - Now and repeat 2x every 3 hours (01/27/2018 7:03 AM CDT) Only the most recent of 2 results within the time period is included. Lactic acid 0.8 0.5 - 2.2 mmol/L [facility] DEPARTMENT OF PATHOLOGY AND GENOMIC MEDICINE Specimen Blood Performing Organization Address City/State/Zipcode Phone Number [facility] DEPARTMENT OF [address] [place] [address] PATHOLOGY AND GENOMIC MEDICINE * US Gallbladder [...] further delineating position of the biliary stent [id number] Procedure Note Interface, Radiology Results Incoming - [...] further delineating position of the biliary stent [id number] Performing Organization Address City/State/Zipcode Phone Number [facility] [address] [place] [address] * Amylase level (01/20/2018 7:54 AM CDT) Only the most recent of 3 results within the time period is included. Amylase 19 (L) 28 - 100 U/L [facility] DEPARTMENT OF PATHOLOGY AND GENOMIC MEDICINE Specimen Plasma specimen Performing Organization Address [facility] [place] [address] PATHOLOGY AND GENOMIC MEDICINE * Hepatic function panel (01/20/2018 7:54 AM CDT) Only the most recent of 10 results within the time period is included. Albumin 2.9 (L) 3.5 - 5.0 g/dL [facility] DEPARTMENT OF PATHOLOGY AND GENOMIC MEDICINE Total bilirubin 0.3 0.2 - 1.2 mg/dL [facility] DEPARTMENT OF PATHOLOGY AND GENOMIC MEDICINE Bilirubin direct <0.2 0.0 - 0.4 mg/dL [facility] DEPARTMENT OF PATHOLOGY AND GENOMIC MEDICINE Alkaline phosphatase 57 0 - 104 U/L [facility] DEPARTMENT OF PATHOLOGY AND GENOMIC MEDICINE Protein 5.7 (L) 6.3 - 8.3 g/dL [facility] DEPARTMENT OF PATHOLOGY AND GENOMIC MEDICINE ALT 17 5 - 50 U/L [facility] DEPARTMENT OF PATHOLOGY AND GENOMIC MEDICINE AST 28 10 - 35 U/L [facility] DEPARTMENT OF PATHOLOGY AND GENOMIC MEDICINE Specimen Plasma specimen Performing Organization Address [facility] [place] [address] PATHOLOGY AND GENOMIC [facility] * Ionized calcium (01/17/2018 7:18 AM CDT) Only the most recent of 2 results within the time period is included. pH 7.39 [facility] DEPARTMENT OF PATHOLOGY AND GENOMIC MEDICINE Ionized calcium 1.16 1.11 - 1.32 mmol/L [facility] PATHOLOGY AND GENOMIC MEDICINE Specimen Plasma specimen Performing Organization Address [facility] [place] [address] PATHOLOGY AND GENOMIC MEDICINE * XR Abdomen [...] pyelograms performed on 01/16/2018 at 1144 hours. [facility]-[id number] Procedure Note Hm Interface, Radiology Results Incoming [...] pyelograms performed on 01/16/2018 at 1144 hours. [facility]-[id number] Performing Organization Address City/State/Zipcode Phone Number [facility] [address] [place] [address] * [place] Pyelogram Retrograde (01/16/2018 12:10 PM CDT) Narrative Performed At EXAMINATION:[place] PYELOGRAM RETROGRADE [facility] CLINICAL HISTORY:Retrograde pyelograms COMPARISON:None. TECHNIQUE: C-arm fluoroscopy [...] of the upper urinary tracts as visualized. [id number] Procedure Note Interface, Radiology Results Incoming - [...] of the upper urinary tracts as visualized. [id number] Performing Organization Address City/State/Zipcode Phone Number [facility] [address] [place] [address] * [place] Cholangiogram Intraoperative (01/13/2018 1:31 PM CDT) Narrative Performed At EXAMINATION:[place] CHOLANGIOGRAM INTRAOPERATIVE [facility] CLINICAL HISTORY:Intraoperative COMPARISON:None. TECHNIQUE: Intraoperative cholangiogram was performed. No radiologist present. Spot radiographs were made available for evaluation. FLUOROSCOPIC TIME:23.6 seconds, 3 images IMPRESSION: 1.See procedure report for more complete details. 2.2 views submitted show well opacified common duct and proximal intrahepatic ducts, and no filling defects. Contrast also noted within the duodenum. [facility]-[id number] Procedure Note Interface, Radiology Results Incoming - [...] defects. Contrast also noted within the duodenum. [facility]-[id number] Performing Organization Address City/State/Zipcode Phone Number [facility] [address] [place] [address] * US Pelvic Transvaginal (01/06/2018 2:58 PM CDT) Narrative Performed At EXAMINATION:US PELVIC TRANSVAGINAL [facility] CLINICAL HISTORY:Pelvic Pain COMPARISON:None. TECHNIQUE:Transabdominal and endovaginal [...] Mildly prominent endometrial stripe; see discussion above. [facility]-[id number] Procedure Note [facility], Radiology Results Incoming - 01/06/2018 3:25 PM [...] Mildly prominent endometrial stripe; see discussion above. [facility]-[id number] Performing Organization Address City/State/Zipcode Phone Number [facility] [address] [place] [address] * [place] Pelvic Transabdominal (01/06/2018 2:58 PM CDT) Narrative Performed At EXAMINATION:US PELVIC TRANSABDOMINAL [facility] CLINICAL HISTORY:Pelvic Pain COMPARISON:None. TECHNIQUE:Transabdominal and endovaginal [...] Mildly prominent endometrial stripe; see discussion above. [facility]-[id number] Procedure Note Interface, Radiology Results [facility] - 01/06/2018 3:21 PM CDT EXAMINATION: US [...] Mildly prominent endometrial stripe; see discussion above. [facility]-[id number] Performing Organization Address [facility]/Zipcode Phone Number [facility] [address] [place] [address] * CT Head Wo Contrast (01/04/2018 11:08 [...] calvarium to be intact. IMPRESSION: Unremarkable examination. [facility]-[id number] Procedure Note Interface, Radiology Results Incoming - [...] calvarium to be intact. IMPRESSION: Unremarkable examination. [facility]-[id number] Performing Organization Address City/[facility]/Zipcode Phone Number [facility] [address] [place] [address] * Cancer antigen 19-9 (01/02/2018 11:45 AM CDT) CA 19-9 20 0 - 35 U/mL [facility] DEPARTMENT OF Comment: PATHOLOGY AND The [employer] 8000 CA19-9 GENOMIC MEDICINE immunoassay was used. Results obtained with different assay methods or kits should not be used interchangeably and may be different. Specimen Plasma specimen Performing Organization Address City/State/Zipcode Phone Number [facility] DEPARTMENT OF [address] [place] [address] PATHOLOGY AND GENOMIC MEDICINE * MRI CHOLANGIOGRAM [...] ERCP. 2.Cholelithiasis without evidence of acute cholecystitis. [facility]-[id number] Procedure Note Interface, Radiology Results - 12/31/2017 [...] 2. Cholelithiasis without evidence of acute cholecystitis. 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 Previous ECG: Previous ECG:Unavailable Interpretation: Interpretation: abnormal Rate: ECG rate:80 ECG rate assessment: normal Rhythm: Rhythm: sinus rhythm Ectopy: Ectopy: none QRS: QRS axis:Left Conduction: Conduction: normal ST segments: ST segments:Normal T waves: T waves: flattening Flattening:AVL * ECG 12 lead (12/31/2017 1:52 PM CDT) Ventricular rate 80 [facility] Atrial rate 80 [facility] VT interval 216 [facility] QRSD interval 92 [...] available- Performing Organization Address City/State/Zipcode Phone Number [facility] MUSE [address] [place] [address] after 09/12/2017 Insurance Payer Benefit Subscriber ID Type Phone Address Plan / Group [facility] MEDICARE AARP xxxxxxxxx O MEDICARE COMPLETE MCR Advance Directives Patient has advance care planning documents on file. For more information, renita e contact: Jose Siddiqi [address] [place] [address]
[2018-09-13] MEDS ORDERED: MINERAL OIL 132 ML BTL PR ONE (21:00)
[2018-09-13] MEDS ORDERED: GLYCERIN ADULT 3 GM SUPP PR NR (21:00)
--- NOTE | 2018-09-13 21:53 | Diagnostic Imaging Report ---
EXAM: ABDOMEN-1VIEW (KUB) DATE: 09/13/2018 8:29 PM INDICATION: Constipation, abdominal pain. COMPARISON: None FINDINGS: LINES/TUBES: None BOWEL PATTERN: No evidence for obstruction. Normal amount of stool in the colon. SOFT TISSUES: No abnormal calcifications. No mass effect. Cholecystectomy clips. LUNG BASES: Grossly clear. BONES: No acute findings. IMPRESSION: Nonobstructive bowel gas pattern. Signed by: DR. Josef Lazo MD on 09/13/2018 9:50 PM
[2018-09-13] MEDS ORDERED: FENTANYL CITRATE/PF 100MCG/2 ML INJ IV ONE (22:15)
[2018-09-13] MEDS ORDERED: FENTANYL 50 MCG/HR PATCH TOP SCH (22:30)
[2018-09-13 22:40] VITALS: BP 162/70
== END 2018-09-13 23:29 | disposition home or self-care (01) ==
LOC: ER 20:20
DX: R10.84 Generalized abdominal pain (principal); R11.0 Nausea
CPT/HCPCS: 74018; 99284

== ENCOUNTER → 2018-09-14 | Day surgery (SDC) | payer MEDICARE ==
[2018-09-05 16:02] LABS: BASOPHILS % 0.2 % (0.0-1.0); EOSINOPHILS # (AUTO) 0.3 (0.0-0.4); EOSINOPHILS % 6.9 % (0.0-6.0); HEMOGLOBIN 11.4 g/dL (12.0-16.0); LYMPHOCYTES # (AUTO) 1.4 (1.0-3.2); LYMPHOCYTES % 29.4 % (18.0-39.1); MEAN CORPUSCULAR HGB CONC 32.6 g/dL (31-35); MEAN CORPUSCULAR VOLUME 89.1 fL (81-99); MONOCYTES # (AUTO) 0.4 (0.2-0.8); MONOCYTES % 7.7 % (4.4-11.3); NEUTROPHILS # (AUTO) 2.6 (2.1-6.9); NEUTROPHILS % 55.6 % (38.7-80.0); PLATELET COUNT 183 x10e3/uL (140-360); RED BLOOD COUNT 3.93 x10e6/uL (3.6-5.1); RED CELL DISTRIBUTION WIDTH 13.8 % (11.7-14.4)
[~2018-09-14] MED LIST changes: +FENTANYL CITRATE/PF 100MCG/2 ML INJ ONE; +HYDROCODONE/APAP 5MG-325MG TAB ONE; +HYDROMORPHONE 2MG/ML 2 MG/ML ML ONE; +HYOSCYAMINE SULFATE 0.5 MG/ML INJ ONE; +LIDOCAINE HCL 2% LOCAL INJ 5 ML SDV VIAL INJ ONE; +MIDAZOLAM HCL 2 MG/2 ML VIAL ONE; +PROPOFOL IV EMULSION 10 MG/ML 50 ML VIAL ONE
--- OUTSIDE RECORDS SUMMARY | 2018-09-14 06:34 | XMS REPORT | Clinical Summary ---
Author Author [facility] Organization [place] [facility] Address Unknown Phone Unavailable Care Team Providers Care Bulk System Operator Name Role Phone Silvano Ryan MD [...] Overview: Added automatically from request for surgery [id number] Postoperative pain 01/27/2018 Intractable epigastric abdominal pain 01/12/2018 Epigastric pain 01/12/2018 Overview: Added automatically from request for surgery [id number] Injury of bile duct 01/12/2018 Overview: Added automatically from request for surgery [id number] Abdominal pain 01/03/2018 Intractable abdominal pain 12/31/2017 [...] pain; Right upper quadrant abdominal pain 01/12/2018 [facility] Internal Medicine - Encounter 01/23/2018 Ceci Rodney [...] abdominal pain (Primary Dx); RUQ pain 12/31/2017 [facility] Internal Medicine - Encounter 01/07/2018 Silvano Ryan MD Adnexal tenderness, right (Primary Dx); Stomach ache 12/27/2017 Transcribe Access Orders after 09/13/2017 Immunizations Name Dates Previously Given Next Due [...] Lot Implanted Type Area Manufactur er 11/13/2019 [id number] / / [id number] Stent Bili Advanix Duodbnd Noé 10fr Surgical N/A: N/A BSC 5cm Prldd Naviflex Ds - [id number] Stents ENDOSCOPY Implanted: 01/17/2018 (Quantity not on [...] 12-LEAD STAT 12/31/2017 1:52 PM CDT after 09/13/2017 Results * CT Abdomen Pelvis W Contrast [...] Bosniak category 1 left renal cyst. [id number] Procedure Note Hm Interface, Radiology Results Incoming [...] obstruction. Bosniak category 1 left renal cyst. [facility][id number] Performing Organization Address City/State/Zipcode Phone Number [facility] [address] [place] [address] * Estimated GFR (05/31/2018 6:03 PM CDT) Estimated GFR 54 (A) mL/min/1.73 m2 [facility] Comment: PATHOLOGY AND CatergoryUnitsInte GENOMIC MEDICINE rpretation G1 >=90 Normal or high G2 60-89Mildly decreased Y2t39-90 Mildly to moderately decreased Y6u43-75 Moderately to severely decreased G4 15-29Severely decreased G5 <15Kidney failure The eGFR was calculated using the Chronic Kidney Disease Epidemiology Collaboration (CKD-EPI) equation. Interpretation is based on recommendations of the National Kidney Foundation-Kidney Disease Outcomes Quality Initiative (NKF-KDOQI) published in 2014. Specimen Blood Performing Organization Address City/State/Zipcode Phone Number [facility] [address] [facility] [place] [address] PATHOLOGY AND GENOMIC MEDICINE * POC creatinine (05/31/2018 6:03 PM CDT) POC creatinine 1.0 (H) 0.5 - 0.9 mg/dl [facility] Comment: PATHOLOGY AND Meter ID: [id number] GENOMIC MEDICINE Welfare Aide: Nataliegillian Madrid Specimen Blood Performing Organization Address City/[facility] Phone Number [address] [place] [address] PATHOLOGY AND GENOMIC MEDICINE * Mammo Breast Screen Tomosynthesis Bilateral (05/12/2018 8:50 AM CDT) Narrative Performed At PROCEDURE:MAMMO BREAST SCREEN TOMOSYNTHESIS MIGZHEVNV63/13/2018 8:12 AM [facility] This patient's mammogram was interpreted with the [...] mammography. This facility is accredited by The [employer] for Mammography. A negative x-ray report should not delay biopsy if a dominant or clinically suspicious mass is present. Not all cancers are identified by x-ray. [id number] The results of this exam have been sent to the patient. Performing Organization Address City/State/Zipcode Phone Number [facility] [address] [place] [address] * Estimated GFR (02/26/2018 6:20 AM CDT) Only the most recent of 29 results within the time period is included. GFR Non Af Amer 54 (A) mL/min/1.73 m2 [facility] PATHOLOGY AND GENOMIC MEDICINE GFR Af Amer 65 mL/min/1.73 m2 [facility] Comment: PATHOLOGY AND Chronic kidney [...] Americans. Specimen Plasma specimen Performing Organization Address City/[facility]/Zipcode Phone Number [address] [place] [address] PATHOLOGY AND scrible [facility] * Manual differential (02/26/2018 6:20 AM CDT) Only the most recent of 3 results within the time period is included. Manual differential PERFORMED [facility] PATHOLOGY AND GENOMIC MEDICINE Neutrophils 45.0 36.0 - 66.0 % [facility] PATHOLOGY AND GENOMIC MEDICINE Lymphocytes 38.0 24.0 - 44.0 % [facility] PATHOLOGY AND GENOMIC MEDICINE Monocytes 9.0 (H) 0.0 - 6.0 % [facility] PATHOLOGY AND GENOMIC MEDICINE Eosinophils 2.0 0.0 - 6.0 % [facility] PATHOLOGY AND GENOMIC MEDICINE Basophils 0.0 0.0 - 1.2 % [facility] PATHOLOGY AND GENOMIC MEDICINE Metamyelocytes 0 0 - 1 % [facility] PATHOLOGY AND GENOMIC MEDICINE Promyelocytes 0 0 - 1 % [facility] PATHOLOGY AND GENOMIC MEDICINE Reactive lymphocytes 6.0 [facility]OLOGY AND GENOMIC MEDICINE Platelet slide review Quintin adequate [facility]OLOGY AND GENOMIC MEDICINE Anisocytosis Slight [facility] PATHOLOGY AND GENOMIC MEDICINE Polychromasia Slight [facility] PATHOLOGY AND GENOMIC MEDICINE Performing Organization Address City/[facility]/Zipcode Phone Number [address] [place] [phone] PATHOLOGY AND scrible [facility] * CBC with platelet and differential (02/26/2018 6:20 AM CDT) Only the most recent of 28 results within the time period is included. WBC 3.1 (L) 4.2 - 11.0 k/uL [facility] PATHOLOGY AND GENOMIC MEDICINE RBC 3.40 (L) 4.04 - 5.86 m/uL [facility] PATHOLOGY AND GENOMIC MEDICINE HGB 9.3 (L) 11.5 - 15.3 g/dL [facility] PATHOLOGY AND GENOMIC MEDICINE HCT 29.8 (L) 34.0 - 45.0 % [facility] PATHOLOGY AND GENOMIC MEDICINE MCV 87.6 80.0 - 98.0 fL [facility] PATHOLOGY AND GENOMIC MEDICINE MCH 27.4 27.0 - 34.0 pg [facility] PATHOLOGY AND GENOMIC MEDICINE MCHC 31.2 (L) 31.5 - 36.5 g/dL [facility] PATHOLOGY AND GENOMIC MEDICINE RDW - SD 42.5 37.0 - 51.0 fL [facility]OLOGY AND GENOMIC MEDICINE MPV 10.7 (H) 7.4 - 10.4 fL [facility]OLOGY AND GENOMIC MEDICINE Platelet count 180 150 - 400 k/uL [facility] PATHOLOGY AND GENOMIC MEDICINE Nucleated RBC 0.00 /100 WBC [facility] PATHOLOGY AND GENOMIC MEDICINE Neutrophils 45.0 36.0 - 66.0 % [facility] PATHOLOGY AND GENOMIC MEDICINE Lymphocytes 38.0 24.0 - 44.0 % [facility] PATHOLOGY AND GENOMIC MEDICINE Monocytes 9.0 (H) 0.0 - 6.0 % [facility] PATHOLOGY AND GENOMIC MEDICINE Eosinophils 2.0 0.0 - 6.0 % [facility] PATHOLOGY AND GENOMIC MEDICINE Basophils 0.0 0.0 - 1.2 % [facility] PATHOLOGY AND GENOMIC MEDICINE Specimen Blood Performing Organization Address City/State/Zipcode Phone Number [facility] [address] [place] [address] PATHOLOGY AND GENOMIC MEDICINE * Basic metabolic panel (02/26/2018 6:20 AM CDT) Only the most recent of 21 results within the time period is included. Sodium 139 135 - 150 mEq/L [facility] PATHOLOGY AND GENOMIC MEDICINE Potassium 3.7 3.5 - 5.0 mEq/L [facility] PATHOLOGY AND GENOMIC MEDICINE Chloride 102 98 - 112 mEq/L [facility] PATHOLOGY AND GENOMIC MEDICINE CO2 27 24 - 31 mmol/L [facility] PATHOLOGY AND GENOMIC MEDICINE Anion gap 10@ANIO 7 - 15 mEq/L [facility] PATHOLOGY AND GENOMIC MEDICINE BUN 9 7 - 18 mg/dL [facility] PATHOLOGY AND GENOMIC MEDICINE Creatinine 1.00 (H) 0.50 - 0.90 mg/dL [facility] PATHOLOGY AND GENOMIC MEDICINE Glucose 82 65 - 100 mg/dL [facility] PATHOLOGY AND GENOMIC MEDICINE Calcium 9.2 8.8 - 10.2 mg/dL [facility] PATHOLOGY AND GENOMIC MEDICINE Specimen Plasma specimen Performing Organization Address [facility] [place] [address] PATHOLOGY AND GENOMIC MEDICINE * Magnesium level (02/23/2018 5:48 AM CDT) Only the most recent of 6 results within the time period is included. Magnesium 1.70 1.60 - 2.40 mg/dL [facility] PATHOLOGY AND GENOMIC MEDICINE Specimen Plasma specimen Performing Organization Address [facility] [place] [address] PATHOLOGY AND [facility] * Thyroid stimulating hormone (02/22/2018 6:00 AM CDT) Only the most recent of 2 results within the time period is included. TSH 1.74 0.27 - 4.20 uIU/mL [facility] PATHOLOGY AND [facility] MEDICINE Specimen Plasma specimen Performing Organization Address [facility] [place] [address] PATHOLOGY AND [facility] MEDICINE * POC glucose (02/21/2018 6:03 PM CDT) Only the most recent of 7 results within the time period is included. POC glucose 98 65 - 100 mg/dL [facility] Comment: PATHOLOGY AND Meter ID: [id number] GENOMIC MEDICINE Welfare Aide: Alfred Rojas Performing Organization Address [facility] [place] [address] PATHOLOGY AND GENOMIC MEDICINE * [place] ERCP [...] are identified. Removal of a biliary stent. [id number] . Procedure Note [facility], Radiology Results Incoming - 02/21/2018 11:05 [...] identified. Removal of a biliary stent. [id number] . Performing Organization Address City/State/Zipcode Phone Number [facility] [address] [place] [address] * IR Endovascular Consult (02/20/2018 2:51 PM [...] drainage catheter located in the gallbladder fossa. [facility]-[id number] Procedure Note Interface, Radiology Results Incoming - [...] drainage catheter located in the gallbladder fossa. [facility]-[id number] Performing Organization Address City/State/Zipcode Phone Number [facility] [address] [place] [address] * CT Abdomen Wo Contrast (02/19/2018 9:06 PM CDT) Narrative Performed At EXAMINATION:CT ABDOMEN WO CONTRAST [facility]ICAL H[facility]:s p drainage abscess 02-16-18 [...] placement with interval resolution of gallbladder abscess. [facility]-[id number] Procedure Note Hm Interface, Radiology Results Incoming [...] placement with interval resolution of gallbladder abscess. [facility]-[id number] Performing Organization Address City/State/Zipcode Phone Number [facility] [address] [place] [address] * Urinalysis, automated with microscopy (02/17/2018 5:16 AM CDT) Only the most recent of 2 results within the time period is included. Color, UA Yellow [facility]Y AND GENOMIC MEDICINE Appearance, UA Cloudy [facility] PATHOLOGY AND GENOMIC MEDICINE Specific gravity, UA 1.016 1.001 - 1.035 [facility] PATHOLOGY AND GENOMIC MEDICINE pH, UA 5.0 5.0 - 8.5 [facility] PATHOLOGY AND GENOMIC MEDICINE Protein, UA Negative Negative [facility] PATHOLOGY AND GENOMIC MEDICINE Glucose, UA Negative Negative [facility] PATHOLOGY AND GENOMIC MEDICINE Ketones, UA Negative Negative [facility] PATHOLOGY AND GENOMIC MEDICINE Bilirubin, UA Negative Negative [facility] PATHOLOGY AND GENOMIC MEDICINE Blood, UA Moderate (A) Negative [facility] PATHOLOGY AND GENOMIC MEDICINE Nitrite, UA Negative Negative [facility] PATHOLOGY AND GENOMIC MEDICINE Urobilinogen, UA Negative <2.0 [facility] PATHOLOGY AND GENOMIC MEDICINE Leukocyte esterase, UA Large (A) Negative [facility] PATHOLOGY AND GENOMIC MEDICINE Epithelial cells, UA Moderate /HPF [facility] PATHOLOGY AND GENOMIC MEDICINE Round epithelial cells, Many 0 - 1 /HPF [facility] UA PATHOLOGY AND GENOMIC MEDICINE WBC, UA >200 (H) 0 - 5 /HPF [facility] PATHOLOGY AND GENOMIC MEDICINE RBC, UA 22 (H) 0 - 5 /HPF [facility] PATHOLOGY AND GENOMIC MEDICINE Bacteria, UA Trace None seen [facility] PATHOLOGY AND GENOMIC MEDICINE Amorphous crystals Few [facility] PATHOLOGY AND GENOMIC MEDICINE WBC clumps, UA Many (A) [facility] PATHOLOGY AND GENOMIC MEDICINE Yeast, UA None seen [facility] PATHOLOGY AND GENOMIC MEDICINE Yeast with pseudohyphae, None seen [facility] UA PATHOLOGY AND GENOMIC MEDICINE Specimen Urine Performing Organization Address City/State/Zipcode Phone Number [facility] [address] [place] [address] PATHOLOGY AND GENOMIC MEDICINE * Gram stain (02/17/2018 5:16 AM CDT) Only the most recent of 3 results within the time period is included. Gram stain result Few WBC's [facility] DEPARTMENT OF Rare Gram negative rods PATHOLOGY AND Comment: GENOMIC MEDICINE Specimen Information Specimen Source: Urine Specimen Site: Clean catch Specimen Urine Performing Organization Address City/State/Zipcode Phone Number [facility] DEPARTMENT OF [address] [place] [address] PATHOLOGY AND GENOMIC MEDICINE * Urine culture (02/17/2018 5:16 AM CDT) Only the most recent of 6 results within the time period is included. Urine culture isolate Klebsiella pneumoniae [facility] DEPARTMENT OF colony count undetermined, PATHOLOGY AND probably due to inhibiting GENOMIC MEDICINE substance. The performance characteristics of this assay on this isolate were validated by the Microbiology Laboratory at [facility].This source has not been approved by [...] pneumoniae Performing Organization Address City/State/Zipcode Phone Number [facility] DEPARTMENT OF [address] [place] [address] PATHOLOGY AND GENOMIC MEDICINE * XR Chest 2 Vw (02/16/2018 7:05 PM CDT) Narrative Performed At EXAMINATION:XR CHEST 2 VW [facility] CLINICAL HISTORY:fever COMPARISON:None. IMPRESSION: Atelectasis in the left lower lobe The right lung is clear The heart is nonenlarged Bony structures are within normal limits [facility]-[id number] Procedure Note Hm Interface, Radiology Results Incoming - 02/16/2018 7:14 PM CDT EXAMINATION: XR CHEST 2 VW CLINICAL HISTORY: fever COMPARISON: None. IMPRESSION: Atelectasis in the left lower lobe The right lung is clear The heart is nonenlarged Bony structures are within normal limits [facility]-[id number] Performing Organization Address City/State/Zipcode Phone Number [facility] [address] [place] [address] * CT Guided Abscess Drain (02/16/2018 6:10 [...] fully monitored and given moderate sedation. Doctor-patient umeq-dd-ukvq time was 30 minutes.. The patient was [...] the Yueh needle was removed.. A 8.3 Kuwaiti pigtail all-purpose drainage catheter was inserted over [...] condition. IMPRESSION: There were no complications [id number] Procedure Note Hm Interface, Radiology Results Incoming [...] fully monitored and given moderate sedation. Doctor-patient vlal-ag-toda time was 30 minutes.. The patient was [...] the Yueh needle was removed.. A 8.3 [place]i pigtail all-purpose drainage catheter was inserted over [...] condition. IMPRESSION: There were no complications [id number] Performing Organization Address City/State/Zipcode Phone Number [facility] [address] [place] [address] * Aerobic culture (02/16/2018 5:35 PM CDT) Aerobic culture isolate Klebsiella pneumoniae [facility] DEPARTMENT OF Occasional PATHOLOGY AND susceptibility to follow GENOMIC MEDICINE (A) Comment: Specimen Information Specimen Source: Abscess Specimen Site: abdominal abscess Aerobic culture isolate Enterococcus faecalis [facility] DEPARTMENT OF Occasional PATHOLOGY AND Enterococcus susceptible to GENOMIC MEDICINE high levels of Gentamicin. Susceptibility results indicate synergy with Penicillins and Vancomycin. This organism is Vancomycin Sensitive. (A) Aerobic culture isolate Alpha Strep, not pneumococcus [facility] DE[facility]MENT OF Occasional PATHOLOGY AND identification [...] mcg/mL: Susceptible Enterococcus faecalis Performing Organization Address [facility] Phone Number [facility] DEPARTMENT OF [address] [place] [address] PATHOLOGY AND GENOMIC MEDICINE * Anaerobic culture (02/16/2018 5:35 PM CDT) Anaerobic culture isolate Zachariahllaraceli mallory [facility] DEPARTMENT OF The performance PATHOLOGY AND characteristics of this assay GENOMIC MEDICINE on this isolate were validated by the Microbiology Laboratory at [facility].This source has not been approved by [...] abdominal abscess Specimen Abscess Performing Organization Address [facility] Phone Number [facility] DEPARTMENT OF [address] [place] [address] PATHOLOGY AND GENOMIC MEDICINE * Partial thromboplastin time, activated (02/16/2018 2:34 PM CDT) Only the most recent of 5 results within the time period is included. PTT 46.4 (H) 23.0 - 36.0 sec [facility] Comment: PATHOLOGY AND PTT therapeutic range for [facility] unfractionated heparin is 61.0-112.0 seconds which corresponds to Anti-Xa 0.3-0.7 U/ml. Note:Change in Panic Value The PTT Panic Value is changing from 110 sec. to 100 sec. due to new instrumentation and reagents. Correlation studies have been performed to validate this result. Specimen Blood Performing Organization Address City/[facility] Phone Number [address] [place] [address] PATHOLOGY AND [facility] * Prothrombin time with INR (02/16/2018 2:34 PM CDT) Only the most recent of 5 results within the time period is included. Prothrombin time 14.5 12.0 - 15.0 sec [facility] PATHOLOGY AND [facility] INR 1.11 0.92 - 1.12 [facility] Comment: PATHOLOGY AND For patients on anticoagulant GENOMIC MEDICINE therapy, reference ranges below: Indication: INR Value Treatment of Venous Thrombosis, 2.0-3.0 pulmonary emboli, or prophylaxis of a venous thrombosis, or systemic emboli. High dose, high risk patients 3.0-4.5 with mechanical valves. NOTE:INR values over 3.0 are sometimes associated with gastrointestinal hemorrhage, especially values over 4.0. Specimen Blood Performing Organization Address [facility] Phone Number [address] AND [facility] * CTA Abdomen Pelvis W And [...] at least partially involving the liver. [id number] Procedure Note Interface, Radiology Results - 02/11/2018 [...] abscess at least partially involving the liver. [id number]-[id number] Performing Organization Address City/State/Zipcode Phone Number [facility] [address] [place] [address] * Surgical pathology request (02/11/2018 9:31 AM CDT) Only the most recent of 3 results within the time period is included. [facility] PATHOLOGY AND GENOMIC MEDICINE Surgical pathology report See link below for PDF Lab [facility] Report PATHOLOGY AND GENOMIC MEDICINE Result status This is Final Report to [facility] [id number] PATHOLOGY AND GENOMIC MEDICINE Performing Organization Address City/State/Zipcode Phone Number [address] [address] PATHOLOGY AND GENOMIC MEDICINE * Urinalysis screen and microscopy, with reflex to culture (02/07/2018 7:40 PM CDT) Only the most recent of 5 results within the time period is included. Specimen site [employer] [facility] PATHOLOGY AND GENOMIC MEDICINE Color, UA Yellow [facility] PATHOLOGY AND GENOMIC MEDICINE Appearance, UA Clear [facility] PATHOLOGY AND GENOMIC MEDICINE Specific gravity, UA 1.015 1.001 - 1.035 [facility] PATHOLOGY AND GENOMIC MEDICINE pH, UA 6.0 5.0 - 8.5 [facility] PATHOLOGY AND GENOMIC MEDICINE Protein, UA Negative Negative [facility] PATHOLOGY AND GENOMIC MEDICINE Glucose, UA Negative Negative [facility] PATHOLOGY AND GENOMIC MEDICINE Ketones, UA Negative Negative [facility] PATHOLOGY AND GENOMIC MEDICINE Bilirubin, UA Negative Negative [facility] PATHOLOGY AND GENOMIC MEDICINE Blood, UA Negative Negative [facility] PATHOLOGY AND GENOMIC MEDICINE Nitrite, UA Negative Negative [facility] PATHOLOGY AND GENOMIC MEDICINE Urobilinogen, UA 2.0 (A) <2.0 [facility] PATHOLOGY AND GENOMIC MEDICINE Leukocyte esterase, UA Negative Negative [facility] PATHOLOGY AND GENOMIC MEDICINE Epithelial cells, UA Few /HPF [facility] PATHOLOGY AND GENOMIC MEDICINE WBC, UA 1 0 - 5 /HPF [facility] PATHOLOGY AND GENOMIC MEDICINE RBC, UA <1 0 - 5 /HPF [facility] PATHOLOGY AND GENOMIC MEDICINE Bacteria, UA None seen None seen [facility] PATHOLOGY AND GENOMIC MEDICINE Yeast, UA None seen [facility] PATHOLOGY AND GENOMIC MEDICINE Yeast with pseudohyphae, None seen [facility] PATHOLOGY AND GENOMIC MEDICINE Specimen Urine Performing Organization Address City/[facility] [place] [address] PATHOLOGY AND GENOMIC MEDICINE * Troponin (02/07/2018 4:33 PM CDT) Troponin <0.30 0.00 - 0.30 ng/mL [facility] Comment: PATHOLOGY AND 0.11 - 1.49 GENOMIC MEDICINE ng/mlMay indicate increased risk of acute coronary syndrome. >=1.5 ng/ml Consistent with acute myocardial infarction. The diagnostic value of a single normal or non-diagnostic result is questionable.Serial samples at 2-6 hour intervals are required to rule out acute myocardial injury. Specimen Plasma specimen Performing Organization Address [facility] [place] [address] PATHOLOGY AND [facility] MEDICINE * B natriuretic peptide (02/07/2018 4:33 PM CDT) BNP 195 (H) 0 - 100 pg/mL [facility] PATHOLOGY AND GENOMIC MEDICINE Specimen Blood Performing Organization Address City/[facility] [place] [address] PATHOLOGY AND GENOMIC MEDICINE * Lipase level (02/07/2018 4:33 PM CDT) Only the most recent of 8 results within the time period is included. Lipase 43 13 - 60 U/L [facility]OLOGY AND GENOMIC MEDICINE Specimen Plasma specimen Performing Organization Address City/[facility] [place] [address] PATHOLOGY AND GENOMIC MEDICINE * Comprehensive metabolic panel (02/07/2018 4:33 PM CDT) Only the most recent of 8 results within the time period is included. Sodium 139 135 - 150 mEq/L [facility]Y AND GENOMIC MEDICINE Potassium 3.1 (L) 3.5 - 5.0 mEq/L [facility]OLOGY AND GENOMIC MEDICINE Chloride 99 98 - 112 mEq/L [facility]OLOGY AND GENOMIC MEDICINE CO2 25 24 - 31 mmol/L [facility]OLOGY AND GENOMIC MEDICINE Anion gap 15@ANIO 7 - 15 mEq/L [facility]OLOGY AND GENOMIC MEDICINE BUN 8 7 - 18 mg/dL [facility]OLOGY AND GENOMIC MEDICINE Creatinine 0.90 0.50 - 0.90 mg/dL [facility]OLOGY AND GENOMIC MEDICINE Glucose 107 (H) 65 - 100 mg/dL [facility] OF [facility]OLOGY AND GENOMIC MEDICINE Calcium 9.1 8.8 - 10.2 mg/dL [facility] OF PATHOLOGY AND GENOMIC MEDICINE Protein 7.2 6.3 - 8.3 g/dL [facility]OLOGY AND GENOMIC MEDICINE Albumin 3.1 (L) 3.5 - 5.0 g/dL [facility]OLOGY AND GENOMIC MEDICINE A/G ratio 0.8 0.7 - 3.8 [facility]OLOGY AND GENOMIC MEDICINE Alkaline phosphatase 86 0 - 104 U/L [facility]OLOGY AND GENOMIC MEDICINE AST 50 (H) 10 - 35 U/L [facility] AND GENOMIC MEDICINE ALT 26 5 - 50 U/L [facility]OLOGY AND GENOMIC MEDICINE Total bilirubin 0.4 0.2 - 1.2 mg/dL [facility]OLOGY AND GENOMIC MEDICINE Specimen Plasma specimen Performing Organization Address City/State/Zipcode Phone Number [place] [address] [place] [address] PATHOLOGY AND GENOMIC MEDICINE * XR Abdomen [...] 3. Mild colonic fecal retention is present. [facility]-[id number] Procedure Note Interface, Radiology Results Incoming - [...] 3. Mild colonic fecal retention is present. [facility]-[id number] Performing Organization Address City/State/Zipcode Phone Number [facility] [address] [place] [address] * Occult blood, stool (02/01/2018 7:30 PM CDT) Occult blood, stool Negative for occult blood. [facility] DEPARTMENT OF Comment: PATHOLOGY AND Specimen Information GENOMIC MEDICINE Specimen Source: Stool Specimen Site: Nonpreserved Specimen Stool - Nonpreserved Performing Organization Address City/[facility] Phone Number [facility] DEPARTMENT OF [address] [place] [phone] PATHOLOGY AND GENOMIC MEDICINE * FL Esophagram Complete (02/01/2018 10:40 AM CDT) Narrative Performed At EXAMINATION:[place] ESOPHAGRAM [facility]PLETE [facility]ICAL H[facility]:DIFFICULTY SWALLOWING COMPARISON:None. Fluoroscopy time: 0.6 FINDINGS: No obstructing or constricting lesions. Intermittent tertiary waves were noted with mild esophageal dysmotility. Intraesophageal reflux was present. The EG junction is patent. No obstructing or constricting lesions. No hiatal hernia or gastroesophageal reflux. IMPRESSION: 1.No obstructing or constricting lesions. Patent EG junction. Mild esophageal dysmotility and intraesophageal reflux. No gastroesophageal reflux. [facility]-[id number] Procedure Note Interface, Radiology Results Incoming - [...] dysmotility and intraesophageal reflux. No gastroesophageal reflux. [facility]-[id number] Performing Organization Address City/[facility] Phone Number [facility] [address] [place] [address] * Hemoglobin & hematocrit (01/31/2018 7:48 AM CDT) HGB 8.0 (L) 12.0 - 16.0 g/dL [facility] DEPARTMENT OF PATHOLOGY AND GENOMIC MEDICINE HCT 25.7 (L) 37.0 - 47.0 % [facility] DEPARTMENT OF PATHOLOGY AND GENOMIC MEDICINE Specimen Blood Performing Organization Address City/[facility] Phone Number [facility] DEPARTMENT [address] [address] PATHOLOGY AND GENOMIC MEDICINE * Potassium level (01/31/2018 7:01 AM CDT) Potassium 3.4 (L) 3.5 - 5.0 mEq/L [facility] DEPARTMENT OF PATHOLOGY AND GENOMIC MEDICINE Specimen Plasma specimen Performing Organization Address [facility] Phone Number [facility] [place] [address] PATHOLOGY AND GENOMIC MEDICINE * US Renal (01/30/2018 2:00 PM CDT) Only the most recent of 2 results within the time period is included. Narrative Performed At EXAMINATION:US RENAL [facility]INICAL H[facility]ORY:HYDRONEPHROSIS COMPARISON:None. FINDINGS: The kidneys are generally normal in size and echogenicity. There is no evidence of solid renal mass, stone or hydronephrosis. The right kidney .4 x 4.5 x 5.1 cm.. The left kidney biisqjai92.1 x 5.2 x 6.2 cm.There is a 2.4 cm cyst.. The urinary bladder is nondistended at time of exam.. IMPRESSION: Normal renal ultrasound examination. [facility]-[id number] Procedure Note Interface, Radiology Results Incoming - [...] of exam.. IMPRESSION: Normal renal ultrasound examination. [facility]-[id number] Performing Organization Address City/[facility]/Zipcode Phone Number [facility] [address] [place] [address] * YOVANNY test (01/30/2018 7:45 AM CDT) YOVANNY test Negative after 24 hours. [facility] DEPARTMENT OF Comment: PATHOLOGY AND Specimen Information GENOMIC MEDICINE Specimen Source: Biopsy Specimen Site: gastric tissue Specimen Biopsy Performing Organization Address [facility] Phone Number [facility] [place] [address] PATHOLOGY AND GENOMIC MEDICINE * Type and screen (01/30/2018 4:30 AM CDT) Only the most recent of 3 results within the time period is included. ABO grouping O [facility] DEPARTMENT OF PATHOLOGY AND GENOMIC MEDICINE Rh type POS [facility] DEPARTMENT OF PATHOLOGY AND GENOMIC MEDICINE Antibody screen (gel) NEG [facility] DEPARTMENT OF PATHOLOGY AND GENOMIC MEDICINE Specimen Blood Performing Organization Address [facility] [place] [address] PATHOLOGY AND GENOMIC MEDICINE * T4, free (01/30/2018 4:30 AM CDT) T4, free 0.8 (L) 0.9 - 1.7 ng/dL [facility] DEPARTMENT OF PATHOLOGY AND GENOMIC MEDICINE Specimen Plasma specimen Performing Organization Address [facility] [place] [address] PATHOLOGY AND GENOMIC MEDICINE * Phosphorus level (01/30/2018 4:30 AM CDT) Only the most recent of 5 results within the time period is included. Phosphorus 3.8 2.4 - 4.5 mg/dL [facility] DEPARTMENT OF PATHOLOGY AND GENOMIC MEDICINE Specimen Plasma specimen Performing Organization Address [facility] Phone Number [facility] [place] [address] PATHOLOGY AND GENOMIC MEDICINE * Immunoglobulin E (01/30/2018 4:30 AM CDT) IgE 6.8 0.0 - 100.0 IU/mL [facility] DEPARTMENT OF PATHOLOGY AND GENOMIC MEDICINE Specimen Plasma specimen Performing Organization Address [facility]/[place] [address] PATHOLOGY AND GENOMIC MEDICINE * NM Hepatobiliary (HIDA Scan) (01/27/2018 12:13 PM CDT) Only the most recent of 3 results within the time period is included. Narrative Performed At Procedure:NM HEPATOBILIARY (HIDA SCAN) [facility] Clinical History:s p lap samantha with cystic duct stump leak and stent placement. Re-evaluate for resolution of leak Technique: The patient was injected with 4 mCi of [id number] intravenously, followed by dynamic imaging of the [...] Incoming - 01/27/2018 12:44 PM CDT Procedure: [place] HEPATOBILIARY (HIDA SCAN) Clinical History: s p lap samantha with cystic duct stump leak and stent placement. Re-evaluate for resolution of leak Technique: The patient was injected with 4 mCi of [id number] intravenously, followed by dynamic imaging of the [...] of the pronounced leak seen on 01-16-2018. [employer] Performing Organization Address City/State/Zipcode Phone Number [facility] [address] [place] [address] * Lactic acid level, SEPSIS - Now and repeat 2x every 3 hours (01/27/2018 7:03 AM CDT) Only the most recent of 2 results within the time period is included. Lactic acid 0.8 0.5 - 2.2 mmol/L [facility] DEPARTMENT OF PATHOLOGY AND GENOMIC MEDICINE Specimen Blood Performing Organization Address City/State/Zipcode Phone Number [facility] DEPARTMENT OF [address] [place] [address] PATHOLOGY AND GENOMIC MEDICINE * US Gallbladder [...] further delineating position of the biliary stent [id number] Procedure Note Interface, Radiology Results Incoming - [...] further delineating position of the biliary stent [id number] Performing Organization Address City/State/Zipcode Phone Number [facility] [address] [place] [address] * Amylase level (01/20/2018 7:54 AM CDT) Only the most recent of 3 results within the time period is included. Amylase 19 (L) 28 - 100 U/L [facility] OF PATHOLOGY AND GENOMIC MEDICINE Specimen Plasma specimen Performing Organization Address [facility] [place] [address] PATHOLOGY AND GENOMIC MEDICINE * Hepatic function panel (01/20/2018 7:54 AM CDT) Only the most recent of 10 results within the time period is included. Albumin 2.9 (L) 3.5 - 5.0 g/dL [facility] OF PATHOLOGY AND GENOMIC MEDICINE Total bilirubin 0.3 0.2 - 1.2 mg/dL [facility] OF PATHOLOGY AND GENOMIC MEDICINE Bilirubin direct <0.2 0.0 - 0.4 mg/dL [facility] OF PATHOLOGY AND GENOMIC MEDICINE Alkaline phosphatase 57 0 - 104 U/L [facility] OF PATHOLOGY AND GENOMIC MEDICINE Protein 5.7 (L) 6.3 - 8.3 g/dL [facility] OF PATHOLOGY AND GENOMIC MEDICINE ALT 17 5 - 50 U/L [facility] OF PATHOLOGY AND GENOMIC MEDICINE AST 28 10 - 35 U/L [facility] OF PATHOLOGY AND GENOMIC MEDICINE Specimen Plasma specimen Performing Organization Address [facility] [place] [address] PATHOLOGY AND GENOMIC [facility] * Ionized calcium (01/17/2018 7:18 AM CDT) Only the most recent of 2 results within the time period is included. pH 7.39 [facility] OF PATHOLOGY AND GENOMIC MEDICINE Ionized calcium 1.16 1.11 - 1.32 mmol/L [facility] PATHOLOGY AND GENOMIC MEDICINE Specimen Plasma specimen Performing Organization Address [facility] [place] [address] PATHOLOGY AND GENOMIC MEDICINE * XR Abdomen [...] pyelograms performed on 01/16/2018 at 1144 hours. [facility]-[id number] Procedure Note Hm Interface, Radiology Results Incoming [...] pyelograms performed on 01/16/2018 at 1144 hours. [facility]-[id number] Performing Organization Address City/State/Zipcode Phone Number [facility] [address] [place] [address] * FL Pyelogram Retrograde (01/16/2018 12:10 PM CDT) Narrative Performed At EXAMINATION:[place] PYELOGRAM RETROGRADE [facility] CLINICAL HISTORY:Retrograde pyelograms COMPARISON:None. TECHNIQUE: C-arm [...] the upper urinary tracts as visualized. [id number] Procedure Note Interface, Radiology Results Incoming - [...] the upper urinary tracts as visualized. [id number] Performing Organization Address City/State/Zipcode Phone Number [facility] [address] [place] [address] * [place] Cholangiogram Intraoperative (01/13/2018 1:31 PM CDT) Narrative Performed At EXAMINATION:[place] CHOLANGIOGRAM INTRAOPERATIVE [facility]INICAL HISTORY:Intraoperative COMPARISON:None. TECHNIQUE: Intraoperative cholangiogram was performed. No radiologist present. Spot radiographs were made available for evaluation. FLUOROSCOPIC TIME:23.6 seconds, 3 images IMPRESSION: 1.See procedure report for more complete details. 2.2 views submitted show well opacified common duct and proximal intrahepatic ducts, and no filling defects. Contrast also noted within the duodenum. [facility]-[id number] Procedure Note Interface, Radiology Results Incoming - [...] defects. Contrast also noted within the duodenum. [facility]-[id number] Performing Organization Address City/State/Zipcode Phone Number [facility] [address] [place] [address] * US Pelvic Transvaginal (01/06/2018 2:58 PM CDT) Narrative Performed At EXAMINATION:US PELVIC TRANSVAGINAL [facility] CLINICAL HISTORY:Pelvic Pain COMPARISON:None. TECHNIQUE:Transabdominal and endovaginal [...] Mildly prominent endometrial stripe; see discussion above. [facility]-[id number] Procedure Note [facility], Radiology Results Incoming - 01/06/2018 3:25 [...] Mildly prominent endometrial stripe; see discussion above. [facility]-[id number] Performing Organization Address City/State/Zipcode Phone Number [facility] [address] [place] [address] * US Pelvic Transabdominal (01/06/2018 2:58 PM CDT) Narrative Performed At EXAMINATION:US PELVIC TRANSABDOMINAL [facility] CLINICAL HISTORY:Pelvic Pain COMPARISON:None. TECHNIQUE:Transabdominal and endovaginal [...] Mildly prominent endometrial stripe; see discussion above. [facility]-[id number] Procedure Note Interface, Radiology Results [facility] - 01/06/2018 3:21 PM CDT EXAMINATION: [...] Mildly prominent endometrial stripe; see discussion above. [facility]-[id number] Performing Organization Address [facility]/Zipcode Phone Number [facility] [address] [place] [address] * CT Head Wo Contrast (01/04/2018 11:08 [...] calvarium to be intact. IMPRESSION: Unremarkable examination. [facility]-[id number] Procedure Note Interface, Radiology Results Incoming - [...] calvarium to be intact. IMPRESSION: Unremarkable examination. [facility]-[id number] Performing Organization Address City/[facility]/Zipcode Phone Number [facility] [address] [place] [address] * Cancer antigen 19-9 (01/02/2018 11:45 AM CDT) CA 19-9 20 0 - 35 U/mL [facility] DEPARTMENT OF Comment: PATHOLOGY AND The [employer] 8000 CA19-9 GENOMIC MEDICINE immunoassay was used. Results obtained with different assay methods or kits should not be used interchangeably and may be different. Specimen Plasma specimen Performing Organization Address City/State/Zipcode Phone Number [facility] DEPARTMENT OF [address] [place] [address] PATHOLOGY AND GENOMIC MEDICINE * MRI CHOLANGIOGRAM [...] ERCP. 2.Cholelithiasis without evidence of acute cholecystitis. [facility]-[id number] Procedure Note Interface, Radiology Results - 12/31/2017 [...] 2. Cholelithiasis without evidence of acute cholecystitis. [facility]-[id number] Performing Organization Address City/State/Zipcode Phone Number [facility] [address] [place] [address] * ECG ED Preliminary Interpretation - NOT AN ORDER (12/31/2017 2:18 PM CDT) Narrative Performed At Kadeem Kincaid MD 12/31/20176:20 PM ECG ED Preliminary Interpretation - Not an Order Performed by: KADEEM KINCAID Authorized by: KADEEM KINCAID ECG reviewed by ED Physician in the absence of a college tutor: yes Previous ECG: Previous ECG:Unavailable Interpretation: Interpretation: abnormal Rate: ECG rate:80 ECG rate assessment: normal Rhythm: Rhythm: sinus rhythm Ectopy: Ectopy: none QRS: QRS axis:Left Conduction: Conduction: normal ST segments: ST segments:Normal T waves: T waves: flattening Flattening:AVL * ECG 12 lead (12/31/2017 1:52 PM CDT) Ventricular rate 80 [facility] Atrial rate 80 [facility] NC interval 216 [facility] QRSD interval 92 [...] available- Performing Organization Address City/State/Zipcode Phone Number [facility] M[facility] [address] [place] [address] after 09/13/2017 Insurance Payer Benefit Subscriber ID Type Phone Address Plan / Group [facility] MEDICARE AARP xxxxxxxxx O MEDICARE COMPLETE MCR Advance Directives Patient has advance care planning documents on file. For more information, renita e contact: Jose Siddiqi [address] [place] [address]
--- NOTE | 2018-09-14 07:15 | NUR ---
SPIRITUAL CARE - Pre-Surgery Assessment: Pt and daughter in waiting area. Pt experiencing pain. Pt's daughter states mother has been having pain for "several months" and hope procedure reveals source of pain. Intervention: I provided pastoral presence, hospitality, empathic listening, and prayer. Outcome: Pt & daughter expressed appreciation for visit. Will follow as able. JUNAID Brinklain Spiritual Care Department O: [phone] Pager: [phone] ([phone] number calling from)
--- NOTE | 2018-09-14 13:15 | Operative Report ---
DATE OF PROCEDURE: September 14, 2018 REFERRING PHYSICIAN: Dr. Silvano Ryan PROCEDURES PERFORMED 1. Esophagogastroduodenoscopy with biopsies. 2. Colonoscopy with polypectomy and biopsies. INDICATIONS FOR EGD: Dyspepsia. INDICATIONS FOR COLONOSCOPY: Lower abdominal pain. MEDICATION: Patient was done under MAC. Please see anesthesiologist's note. PROCEDURE: With the patient in the left lateral decubitus position, the flexible fiberoptic Olympus gastroscope was introduced into the esophagus under direct visualization without any difficulty. There was some patchy erythema noted in the distal esophagus. The scope was then advanced with ease into the stomach. Mucosa overlying the antrum and the body revealed some patchy erythema and mild to moderate edema, and biopsies were obtained and sent to stain for H. pylori. Pylorus appeared to be of normal contour and shape. It was intubated with ease. The scope was advanced all the way to the 2nd portion of the duodenum. Some of the folds appeared somewhat flattened and biopsies were obtained to rule out sprue. The scope was then withdrawn back into the stomach and retroflexed. Mucosa overlying the fundus and the cardia appeared to be within normal limits. The scope was then straightened out. It was subsequently withdrawn. Patient tolerated the procedure well. IMPRESSION 1. Distal esophagitis. 2. Gastritis, biopsied. Biopsies sent to stain for H. pylori. 3. Rule out sprue. PLAN: Follow up histology. Initiate Protonix 40 mg 1 p.o. q.a.m. a.c. Patient was then turned around. After adequate lubrication of the anal canal, a flexible fiberoptic Olympus colonoscope was inserted into the rectum with ease and advanced all the way to the cecum. An approximately 5-mm polyp was snared from the cecum and polypectomy site was hemoclipped. The ileocecal valve was intubated and the scope was advanced into the terminal ileum. Biopsies were obtained. The scope was then withdrawn back into the colon. It was then withdrawn slowly. Mucosa overlying the ascending, transverse, descending, sigmoid, and rectum revealed some patchy areas of erythema and low-grade edema, but with findings more prominent in the sigmoid and rectum. Random biopsies were obtained. The scope was then retroflexed into the distal rectum. Small internal hemorrhoids were noted, none of which was actively bleeding. The scope was then straightened out. It was subsequently withdrawn. Patient tolerated the procedure well. IMPRESSION 1. Cecal polyp, snared, site hemoclipped. 2. Patchy erythema and low-grade edema more prominent in the sigmoid and rectum, random biopsies obtained. 3. Internal hemorrhoids, none actively bleeding. PLAN: Follow up histology. Initiate Bentyl 10 mg 1 p.o. t.i.d. Check urine perforans. No followup colonoscopy is necessary. Job#: [id number] RI cc:SILVANO RYAN MD
[2018-09-14 14:00] VITALS: BP 152/75
== END | disposition home or self-care (01) ==
LOC: OR 06:31
PROVIDERS: ATTEND Internal Medicine Gastroenterology
DX: K59.09 Other constipation (principal); K63.5 Polyp of colon; K29.80 Duodenitis without bleeding; K29.70 Gastritis, unspecified, without bleeding; K63.89 Other specified diseases of intestine; K62.89 Other specified diseases of anus and rectum; K20.9 Esophagitis, unspecified; K64.8 Other hemorrhoids; I10 Essential (primary) hypertension; F41.9 Anxiety disorder, unspecified; F32.9 Major depressive disorder, single episode, unspecified; E03.9 Hypothyroidism, unspecified; Z88.6 Allergy status to analgesic agent; Z88.1 Allergy status to other antibiotic agents; Z88.2 Allergy status to sulfonamides; Z01.812 Encounter for preprocedural laboratory examination; Z68.30 Body mass index [BMI] 30.0-30.9, adult
CPT/HCPCS: 36415; 43239; 45380; 45385; 84119; 85025; 88305; 88312; J1170; J1980; J2001; J2250; J2704; 45378; 45384